=== PATIENT | female | born 1945 ===

== ENCOUNTER 2017-09-12 15:42 | Emergency (ER) | payer MEDICARE, MEDICAID ==
[2017-09-12 15:49] VITALS: RESP 16
[2017-09-12 16:39] LABS: BASO # 0.1 K/uL (0.0-0.2); BASO % 0.8 % (0.0-2.0); EOS # 0.1 K/uL (0.0-0.7); EOS % 1.1 % (0.0-4.0); HEMOGLOBIN 12.6 g/dL (12.0-16.0); LYMPH # 2.5 K/uL (1.0-4.3); LYMPH % 36.3 % (20.0-40.0); MEAN CORPUSCULAR HEMOGLOBIN 24.2 pg (27.0-31.0); MEAN CORPUSCULAR HGB CONC 31.5 g/dL (33.0-37.0); MEAN PLATELET VOLUME 8.6 fl (7.2-11.7); MONO # 0.6 K/uL (0.0-0.8); MONO % 8.9 % (0.0-10.0); NEUT # 3.6 K/uL (1.8-7.0); NEUT % 52.9 % (50.0-75.0); NRBC % 0.1 % (0.0-0.0); RBC 5.2 Mil/uL (3.80-5.20); RED CELL DISTRIBUTION WIDTH 15.6 % (11.5-14.5); WHITE BLOOD COUNT 6.8 K/uL (4.8-10.8)
[2017-09-12 17:13] LABS: VENOUS BLOOD GAS BASE EXCESS 0.3 mmol/L (0.0-2.0); VENOUS BLOOD GAS PCO2 53 mmHg (40-60); VENOUS BLOOD GAS PO2 26 mm/Hg (30-55); VENOUS BLOOD PH 7.32 (7.32-7.43)
--- NOTE | 2017-09-12 17:13 | CT ---
PROCEDURE: CT HEAD WITHOUT CONTRAST. HISTORY: fall head injury COMPARISON: Noncontrast head CT performed 06/27/16 TECHNIQUE: Axial computed tomography images were obtained through the head/brain without intravenous contrast. Radiation dose: Total exam DLP = 1539.21 mGy-cm. This CT exam was performed using one or more of the following dose reduction techniques: Automated exposure control, adjustment of the mA and/or kV according to patient size, and/or use of iterative reconstruction technique. FINDINGS: HEMORRHAGE: No intracranial hemorrhage. BRAIN: Diffuse atrophy with prominence of the ventricles and sulci noted. No mass effect or edema. Bilateral basal ganglia calcifications. Dense intracranial atherosclerosis. Scattered periventricular and subcortical white matter hypodensities, which are nonspecific, but often seen with chronic microvascular ischemic disease. Please note that MRI with diffusion imaging is more sensitive in the detection of acute ischemic event. VENTRICLES: No hydrocephalus. CALVARIUM: Unremarkable. PARANASAL SINUSES: Unremarkable as visualized. No significant inflammatory changes. MASTOID AIR CELLS: Unremarkable as visualized. No inflammatory changes. OTHER FINDINGS: Right posterior scalp hematoma. IMPRESSION: Right posterior scalp hematoma. Generalized atrophy. Nonspecific white matter changes.
--- NOTE | 2017-09-12 17:23 | CT ---
PROCEDURE: CT Cervical Spine without contrast HISTORY: Trauma/head injury. COMPARISON: 02/24/2016 CT cervical spine. TECHNIQUE: Axial computed tomography images were obtained of the cervical spine without the use of intravenous contrast. Coronal and sagittal reformatted images were created and reviewed. Radiation dose: Total exam DLP = 329.27 mGy-cm. This CT exam was performed using one or more of the following dose reduction techniques: Automated exposure control, adjustment of the mA and/or kV according to patient size, and/or use of iterative reconstruction technique. FINDINGS: VERTEBRAE: No fracture. Normal alignment. No destructive bony lesion. DISCS/SPINAL CANAL/NEURAL FORAMINA: Proliferative, hypertrophic bar formation centrally without evidence of focal herniated disc or canal stenosis. Discs heights are grossly preserved. PARASPINAL SOFT TISSUES: Unremarkable. OTHER FINDINGS: None. IMPRESSION: No acute findings related to/accounting for the clinical presentation. No significant interval change compared to the prior examination(s).
--- NOTE | 2017-09-12 17:33 | ED PDOC ---
HPI: Trauma/Fall - HPI Time Seen by Provider: 09/12/17 16:16 Chief Complaint (Nursing): Trauma Chief Complaint (Provider): Head injury s/p mechanical fall History Per: Family History/Exam Limitations: clinical condition (dementia) Onset/Duration Of Symptoms: Hrs (1) Injury Occurred (Timing): Hours Ago: (1) Location Of Injury: Posterior: Head Associated Symptoms: denies: LOC Additional Complaint(s): 72yo female with history of hypertension, dementia and diabetes, brought to ED by daughter for evaluation after she had a mechanical fall while getting out of the car. The daughter is the primary historian as the patient is demented and at baseline, is nonverbal. Daughter states patient fell backwards and hit the back of her head; deneis any loss of consciousness. Daughter states the patient needs a lot of assistance at home and usually just stays in her bed all day. PMd: Dr. Felicita Steward Past Medical History Reviewed: Historical Data, Nursing Documentation, Vital Signs Vital Signs: Last Vital Signs Temp 97.1 F L 09/12/17 15:46 Pulse 101 H 09/12/17 15:46 Resp 16 09/12/17 15:46 BP 153/105 H 09/12/17 19:20 Pulse Ox 99 09/12/17 19:25 - Medical History PMH: Alzheimer's Disease, Arthritis, Dementia, Diabetes, HTN, Schizophrenia Denies: Hepatitis, HIV, Hypercholesterolemia, Chronic Kidney Disease, Seizures, Sexually Transmitted Disease - Surgical History Surgical History: - Family History Family History: States: Unknown Family Hx - Living Arrangements Living Arrangements: With Family - Home Medications Home Medications: Ambulatory Orders Medication Instructions Recorded Canagliflozin/Metformin HCl 1 tab PO BID 02/24/16 [Invokamet 50-1,000 mg Tablet] Divalproex [Depakote ER] 250 mg PO TID 02/24/16 Ergocalciferol (Vitamin D2) 50,000 unit PO QWK 02/24/16 [Vitamin D2] Memantine [Namenda] 10 mg PO BID 02/24/16 Mirtazapine [Remeron] 7.5 mg PO HS 02/24/16 QUEtiapine [SEROquel] 100 mg PO TID PRN 02/24/16 Sertraline [Zoloft] 50 mg PO DAILY 02/24/16 Benztropine [Cogentin] 2 mg PO HS 05/28/16 Haloperidol [Haldol] 2 mg PO TID 05/28/16 Linagliptin [Tradjenta] 5 mg PO DAILY 05/28/16 Rivastigmine 4.6 mg/24 hr [Exelon 1 patch TOP DAILY 05/28/16 4.6 mg/24 hr Patch] Insulin Lispro [Humalog Kwikpen 100 unit SQ PRN PRN 06/27/16 U-100] Ibuprofen [Motrin Tab] 400 mg PO Q6 PRN #60 tab 09/12/17 - Allergies Allergies/Adverse Reactions: Allergies Allergy/AdvReac Type Severity Reaction Status Date / Time Penicillins Allergy RASH Verified 06/27/16 17:18 Review of Systems Review Of Systems: ROS cannot be obtained secondary to pt's inabilty to answer questions. (patient with dementia, non-verbal at baseline) Neurological: Positive for: Other (head injury, no loss of consciousness) Physical Exam - Reviewed Nursing Documentation Reviewed: Yes Vital Signs Reviewed: Yes - Physical Exam Head Exam: Negative for: ATRAUMATIC (large hematoma noted to right occiut. 8cm amnd circular in size, tender and fluctuant as well. ) Eye Exam: Positive for: PERRL Neck: Positive for: Trachea Midline (patient in C-collar) Extremity: Positive for: Normal ROM (all extremities) Neurologic/Psych: Positive for: Alert, Mood/Affect (non-verbal at baseline). Negative for: Motor/Sensory Deficits - Laboratory Results Result Diagrams: 09/12/17 16:35 09/12/17 18:21 - ECG O2 Sat by Pulse Oximetry: 99 (RA) Pulse Ox Interpretation: Normal Medical Decision Making Medical Decision Making: Impression: Head injury s/p fall Plan: -- CT Head w/o contrast -- CT C-Spine w/o contrast -- Labs Accession No. : [id number] Patient Name / ID : CHHAYA CHINCHILLA / [id number] Exam Date : 09/12/2017 16:50:25 ( Approved ) Study Comment : Sex / Age : F / 72Y Creator : Cathryn Borrego MD Dictator : Cathryn Borrego MD Home Theater Specialist : Production Supply Equipment Tender : Cathryn Borrego MD Approver2 : Report Date : 09/12/2017 17:12:02 My Comment : PROCEDURE: CT HEAD WITHOUT CONTRAST. HISTORY: fall head injury COMPARISON: Noncontrast head CT performed 06/27/16 TECHNIQUE: Axial computed tomography images were obtained through the head/brain without intravenous contrast. Radiation dose: Total exam DLP = 1539.21 mGy-cm. This CT exam was performed using one or more of the following dose reduction techniques: Automated exposure control, adjustment of the mA and/or kV according to patient size, and/or use of iterative reconstruction technique. FINDINGS: HEMORRHAGE: No intracranial hemorrhage. BRAIN: Diffuse atrophy with prominence of the ventricles and sulci noted. No mass effect or edema. Bilateral basal ganglia calcifications. Dense intracranial atherosclerosis. Scattered periventricular and subcortical white matter hypodensities, which are nonspecific, but often seen with chronic microvascular ischemic disease. Please note that MRI with diffusion imaging is more sensitive in the detection of acute ischemic event. VENTRICLES: No hydrocephalus. CALVARIUM: Unremarkable. PARANASAL SINUSES: Unremarkable as visualized. No significant inflammatory changes. MASTOID AIR CELLS: Unremarkable as visualized. No inflammatory changes. OTHER FINDINGS: Right posterior scalp hematoma. IMPRESSION: Right posterior scalp hematoma. Generalized atrophy. Nonspecific white matter changes. Accession No. : [id number] Patient Name / ID : CHHAYA CHINCHILLA / [id number] Exam Date : 09/12/2017 16:53:06 ( Approved ) Study Comment : Sex / Age : F / 72Y Creator : Miguel Angel Moreira MD Dictator : Miguel Angel Moreira MD Home Theater Specialist : Production Supply Equipment Tender : Miguel Angel Moreira MD Approver2 : Report Date : 09/12/2017 17:21:46 My Comment : PROCEDURE: CT Cervical Spine without contrast HISTORY: Trauma/head injury. COMPARISON: 02/24/2016 CT cervical spine. TECHNIQUE: Axial computed tomography images were obtained of the cervical spine without the use of intravenous contrast. Coronal and sagittal reformatted images were created and reviewed. Radiation dose: Total exam DLP = 329.27 mGy-cm. This CT exam was performed using one or more of the following dose reduction techniques: Automated exposure control, adjustment of the mA and/or kV according to patient size, and/or use of iterative reconstruction technique. FINDINGS: VERTEBRAE: No fracture. Normal alignment. No destructive bony lesion. DISCS/SPINAL CANAL/NEURAL FORAMINA: Proliferative, hypertrophic bar formation centrally without evidence of focal herniated disc or canal stenosis. Discs heights are grossly preserved. PARASPINAL SOFT TISSUES: Unremarkable. OTHER FINDINGS: None. IMPRESSION: No acute findings related to/accounting for the clinical presentation. No significant interval change compared to the prior examination(s). Scribe Attestation: Documented by Patricia Stevens acting as a scribe for Patrizia Erazo MD. Provider Attestation: All medical record entries made by the Scribe were at my direction and personally dictated by me. I have reviewed the chart and agree that the record accurately reflects my personal performance of the history, physical exam, medical decision making, and the department course for this patient. I have also personally directed, reviewed, and agree with the discharge instructions and disposition. Disposition - Clinical Impression Clinical Impression: Head injury, Scalp hematoma, Fall - Disposition Referrals: Felicita Steward [Staff Provider] - 09/13/17 ([facility]) Condition: STABLE Prescriptions: Ibuprofen [Motrin Tab] 400 mg PO Q6 PRN #60 tab PRN Reason: PAIN Instructions: Fall Prevention for Older Adults (ED), Contusion in Adults (ED), Head Injury (ED) Forms: [email or web address] (Czech) Print Language: AUSTRALIAN
[2017-09-12] MEDS ORDERED: Sodium Chloride 0.9% 500 ML IV STA (17:49)
[2017-09-12 18:49] LABS: CALCIUM 9.1 mg/dL (8.4-10.2); GFR AFRICAN-AMERICAN > 60; GFR NON-AFRICAN AMERICAN > 60
[2017-09-12 18:54] LABS: ALBUMIN 4.1 g/dL (3.5-5.0); ALT/SGPT < 6 U/L (9-52); AST/SGOT 65 U/L (14-36); BLOOD UREA NITROGEN 19 mg/dl (7-17)
[2017-09-12 19:20] VITALS: BP 153/105
[2017-09-12 19:39] VITALS: PULSE 87; TEMP 97.4; O2SAT 97
== END 2017-09-12 20:13 | disposition home or self-care (01) ==
LOC: H.ER 15:42
DX: S00.03XA Contusion of scalp, initial encounter (principal); S09.90XA Unspecified injury of head, initial encounter; W19.XXXA Unspecified fall, initial encounter; Y92.89 Other specified places as the place of occurrence of the external cause; F02.80 Dementia in other diseases classified elsewhere, unspecified severity, without behavioral disturbance, psychotic disturbance, mood disturbance, and anxiety; E11.9 Type 2 diabetes mellitus without complications; G30.9 Alzheimer's disease, unspecified; I10 Essential (primary) hypertension; Z79.4 Long term (current) use of insulin; Z88.0 Allergy status to penicillin; F20.9 Schizophrenia, unspecified
CPT/HCPCS: 70450; 72125; 80053; 82803; 83605; 85025; 96360; 96361; 99284; J7040

== ENCOUNTER 2018-07-06 12:04 | Inpatient (IN) | payer MEDICARE, MEDICAID ==
[2018-07-06 12:12] VITALS: BMI 25.0
[2018-07-06] MEDS ORDERED: Sodium Chloride 0.9% 1,000 ML IV STA ×2 (12:35→12:51)
--- NOTE | 2018-07-06 12:39 | ED PDOC ---
HPI: Altered Mental Status Time Seen by Provider: 07/06/18 12:29 Chief Complaint (Nursing): Weakness/Neurological Deficit History Per: Family Onset/Duration Of Symptoms: Days (3) Current Symptoms Are (Timing): Still Present Description Of Symptoms: Difficult To Arouse Usual Baseline: Non-verbal, Ambulatory Decreased Ability To: Stand, Walk Severity: Moderate Additional History Per: Family Associated Symptoms: Fever, Not Eating, Not Drinking. denies: Vomiting, Diarrhea, Cough Additional Complaint(s): Brought by EMS, family states fever, decreased PO intake and difficulty urinating x 3 days. Pt has h/o Dementia but is now unable to ambulate with decreased responsiveness. Denies vomiting or diarrhea. No cough. Past Medical History Vital Signs: Last Vital Signs Temp 101.2 F H 07/06/18 12:27 Pulse 118 H 07/06/18 12:27 Resp 20 07/06/18 12:27 BP 138/89 07/06/18 12:11 Pulse Ox 96 07/06/18 12:27 - Medical History PMH: Alzheimer's Disease, Arthritis, Dementia, Diabetes, HTN, Hypercholesterolemia, Schizophrenia Denies: Hepatitis, HIV, Chronic Kidney Disease, Seizures, Sexually Transmitted Disease - Surgical History Surgical History: - Family History Family History: States: Unknown Family Hx - Home Medications Home Medications: Ambulatory Orders Medication Instructions Recorded Canagliflozin/Metformin HCl 1 tab PO BID 02/24/16 [Invokamet 50-1,000 mg Tablet] Divalproex [Depakote ER] 250 mg PO TID 02/24/16 Ergocalciferol (Vitamin D2) 50,000 unit PO QWK 02/24/16 [Vitamin D2] Memantine [Namenda] 10 mg PO BID 02/24/16 Mirtazapine [Remeron] 7.5 mg PO HS 02/24/16 QUEtiapine [SEROquel] 100 mg PO TID PRN 02/24/16 Sertraline [Zoloft] 50 mg PO DAILY 02/24/16 Benztropine [Cogentin] 2 mg PO HS 05/28/16 Haloperidol [Haldol] 2 mg PO TID 05/28/16 Linagliptin [Tradjenta] 5 mg PO DAILY 05/28/16 Rivastigmine 4.6 mg/24 hr [Exelon 1 patch TOP DAILY 05/28/16 4.6 mg/24 hr Patch] Insulin Lispro [Humalog Kwikpen 100 unit SQ PRN PRN 06/27/16 U-100] Ibuprofen [Motrin Tab] 400 mg PO Q6 PRN #60 tab 09/12/17 - Allergies Allergies/Adverse Reactions: Allergies Allergy/AdvReac Type Severity Reaction Status Date / Time Penicillins Allergy RASH Verified 07/06/18 12:11 Review of Systems ROS Statement: Except As Marked, All Systems Reviewed And Found Negative Constitutional: Positive for: Fever Genitourinary Female: Positive for: Dysuria Physical Exam - Reviewed Nursing Documentation Reviewed: Yes Vital Signs Reviewed: Yes - Physical Exam Appears: Positive for: Non-toxic, No Acute Distress Head Exam: Positive for: ATRAUMATIC, NORMAL INSPECTION, NORMOCEPHALIC Skin: Positive for: Normal Color, Warm, DRY Eye Exam: Positive for: EOMI, Normal appearance, PERRL ENT: Positive for: Other (Mucous membranes dry) Neck: Positive for: Normal, Painless ROM Cardiovascular/Chest: Positive for: Regular Rate, Rhythm Respiratory: Positive for: CNT, Normal Breath Sounds Gastrointestinal/Abdominal: Positive for: Normal Exam, Soft Back: Positive for: Other (2 cm sacral decubitus with breakdown of skin, no drainage or ertythema) Extremity: Positive for: Normal ROM Neurologic/Psych: Negative for: Alert (lethargic), Motor/Sensory Deficits - Laboratory Results Result Diagrams: 07/06/18 12:42 07/06/18 12:42 - ECG O2 Sat by Pulse Oximetry: 96 Medical Decision Making Medical Decision Making: No obvious source for sepsis. ? infiltrate LLL. Will tx with IV vanco and cipro as pt is allergic to pcn and rehydrate and repeat lactate Disposition - Clinical Impression Clinical Impression: SIRS (systemic inflammatory response syndrome), Dehydration, Hypernatremia - Patient ED Disposition Is Patient to be Admitted: Yes - Disposition Disposition Time: 13:46 Condition: FAIR Forms: Candice Doe (Mexican) - Pt Status Changed To: Hospital Disposition Of: Inpatient - Admit Certification Admit to Inpatient:: After my assessment, the patient will require hos pitalization for at least two midnights. This is because of the severity of symptoms shown, intensity of services needed, and/or the medical risk in this patient being treated as an outpatient. - POA Present On Arrival: None
[2018-07-06 12:48] LABS: BASO # 0.1 K/uL (0.0-0.2); HEMOGLOBIN 15.1 g/dL (12.0-16.0); LYMPH # 1.7 K/uL (1.0-4.3); LYMPH % 15.9 % (20.0-40.0); MEAN CORPUSCULAR HEMOGLOBIN 24.4 pg (27.0-31.0); MEAN CORPUSCULAR HGB CONC 31.7 g/dL (33.0-37.0); MEAN PLATELET VOLUME 9.7 fl (7.2-11.7); MONO # 0.5 K/uL (0.0-0.8); MONO % 4.7 % (0.0-10.0); NEUT # 8.4 K/uL (1.8-7.0); NEUT % 78.4 % (50.0-75.0); NRBC % 0.3 % (0.0-0.0); RBC 6.2 Mil/uL (3.80-5.20); RED CELL DISTRIBUTION WIDTH 14.5 % (11.5-14.5); WHITE BLOOD COUNT 10.8 K/uL (4.8-10.8)
[2018-07-06 12:48] LABS: VENOUS BLOOD GAS BASE EXCESS -2.6 mmol/L (0.0-2.0); VENOUS BLOOD GAS PCO2 31 mmHg (40-60); VENOUS BLOOD GAS PO2 57 mm/Hg (30-55); VENOUS BLOOD PH 7.43 (7.32-7.43)
[2018-07-06] MEDS ORDERED: Ciprofloxacin 400mg/200ml D5W 400 MG/200 ML BAG IVPB STA (12:51)
[2018-07-06 13:08] LABS: ALBUMIN 4.1 g/dL (3.5-5.0); ALT/SGPT 25 U/L (9-52); AST/SGOT 27 U/L (14-36); BLOOD UREA NITROGEN 38 mg/dl (7-17); CALCIUM 9.8 mg/dL (8.4-10.2); GFR NON-AFRICAN AMERICAN > 60
[2018-07-06] MEDS ORDERED: Ciprofloxacin 400mg/200ml D5W 400 MG/200 ML BAG IVPB ONE (13:09)
[2018-07-06 13:10] LABS: SQUAMOUS EPITHIAL < 1 /hpf (0-5); URINE BACTERIA RARE (<OCC); URINE BILIRUBIN NEGATIVE (NEGATIVE); URINE BLOOD SMALL (NEGATIVE); URINE CLARITY SLIGHTY-CLOUDY (Clear); URINE COLOR YELLOW (YELLOW); URINE GLUCOSE (UA) >=500 mg/dL (NEGATIVE); URINE LEUKOCYTE ESTERASE NEG Leu/uL (Negative); URINE PROTEIN 30 mg/dL (NEGATIVE); URINE UROBILINOGEN 0.2-1.0 mg/dL (0.2-1.0)
--- NOTE | 2018-07-06 13:32 | CT ---
Date of service: 07/06/2018 PROCEDURE: CT HEAD WITHOUT CONTRAST. HISTORY: r/o bleed COMPARISON: Unenhanced head CT 09/12/2017. TECHNIQUE: Axial computed tomography images were obtained through the head/brain without intravenous contrast. Radiation dose: Total exam DLP = 831.47 mGy-cm. This CT exam was performed using one or more of the following dose reduction techniques: Automated exposure control, adjustment of the mA and/or kV according to patient size, and/or use of iterative reconstruction technique. FINDINGS: HEMORRHAGE: No intracranial hemorrhage. BRAIN: Stable age-related degenerative changes are identified which are not significantly changed in the interval. There is no mass effect or suspicious extra-axial collection appreciated. Midline brain anatomy is unremarkable with posterior fossa contents nonfocal once again. VENTRICLES: Unremarkable. No hydrocephalus. CALVARIUM: Unremarkable. PARANASAL SINUSES: Unremarkable as visualized. No significant inflammatory changes. MASTOID AIR CELLS: Unremarkable as visualized. No inflammatory changes. OTHER FINDINGS: None. IMPRESSION: Stable age-related degenerative findings are identified without definite acute interval CT findings as per above. Follow-up CT or MRI are available if clinically warranted.
--- NOTE | 2018-07-06 14:06 | RAD ---
Date of service: 07/06/2018 HISTORY: cough COMPARISON: 06/27/2016. FINDINGS: LUNGS: Left lower lobe infiltrate suspicious for pneumonia. PLEURA: No significant pleural effusion identified, no pneumothorax apparent. CARDIOVASCULAR: No atherosclerotic calcification present Normal. OSSEOUS STRUCTURES: No significant abnormalities. VISUALIZED UPPER ABDOMEN: Normal. OTHER FINDINGS: None. IMPRESSION: Asymmetric increased parenchymal markings retrocardiac region-left lower lobe suspicious for pneumonia. Two-view radiograph may confirm these findings.
[2018-07-06 14:23] LABS: ALB/GLOB RATIO 0.9 (1.0-2.1); ALBUMIN 3.3 g/dL (3.5-5.0); ALT/SGPT 21 U/L (9-52); AST/SGOT 18 U/L (14-36); BLOOD UREA NITROGEN 35 mg/dl (7-17); CALCIUM 8.9 mg/dL (8.4-10.2); GFR NON-AFRICAN AMERICAN > 60
[2018-07-06] MEDS: Dextrose 5%/0.45% NS 1,000 ML IV SCH ×2 (14:46→21:30)
[2018-07-06] MEDS ORDERED: Vancomycin 1 g Inj ONE (14:54)
[2018-07-06] MEDS ORDERED: Pneumococcal 23-Valent Vaccine IM ONE (17:35)
[2018-07-06 17:37] LABS: VENOUS BLOOD GAS BASE EXCESS -16.6 mmol/L (0.0-2.0); VENOUS BLOOD GAS PCO2 59 mmHg (40-60); VENOUS BLOOD GAS PO2 93 mm/Hg (30-55); VENOUS BLOOD PH 7.01 (7.32-7.43)
[2018-07-06] MEDS: Potassium Ch 20mEq in D5-1/2NS 1,000 ML IV SCH (17:56)
--- NOTE | 2018-07-06 17:58 | CARD ---
APPROVED REPORT Date of service: 07/06/2018 EKG Measurement Heart [id number] <Conclusion> Sinus tachycardia Left anterior fascicular block Left ventricular hypertrophy with repolarization abnormality Cannot rule out Septal infarct, age undetermined Abnormal ECG
[2018-07-06] MEDS: Ciprofloxacin 400mg/200ml D5W 400 MG/200 ML BAG IVPB SCH (20:13)
[2018-07-07] MEDS: Potassium Ch 20mEq in D5-1/2NS 1,000 ML IV SCH ×2 (01:00→10:46)
[2018-07-07] MEDS: Dextrose 5%/0.45% NS 1,000 ML IV SCH ×2 (04:30→17:56)
[2018-07-07 07:32] LABS: HEMOGLOBIN 11.8 g/dL (12.0-16.0); MEAN CELL VOLUME 77.9 fl (81.0-99.0); MEAN CORPUSCULAR HEMOGLOBIN 23.9 pg (27.0-31.0); MEAN CORPUSCULAR HGB CONC 30.7 g/dL (33.0-37.0); RBC 4.94 Mil/uL (3.80-5.20); RED CELL DISTRIBUTION WIDTH 14.6 % (11.5-14.5); WHITE BLOOD COUNT 7.7 K/uL (4.8-10.8)
[2018-07-07 07:38] LABS: LDL CHOLESTEROL 139 mg/dL (0-129)
[2018-07-07 07:59] LABS: ALB/GLOB RATIO 0.9 (1.0-2.1); ALBUMIN 2.7 g/dL (3.5-5.0); ALT/SGPT 27 U/L (9-52); AST/SGOT 16 U/L (14-36); BLOOD UREA NITROGEN 22 mg/dl (7-17); CALCIUM 8.7 mg/dL (8.4-10.2); GFR NON-AFRICAN AMERICAN > 60; HDL CHOLESTEROL 38 MG/DL (30-70)
[2018-07-07] MEDS: Ciprofloxacin 400mg/200ml D5W 400 MG/200 ML BAG IVPB SCH ×2 (08:57→21:49)
[2018-07-07] MEDS ORDERED: Dextrose 50% SYRINGE Inj (50 ml) IV PRN (09:10)
[2018-07-07] MEDS ORDERED: Glucagon Recombinant 1 mg Inj IM PRN (09:10)
[2018-07-07] MEDS: Vancomycin 1 GM in Dextrose 5% In Water 250 ML IVPB SCH (09:40)
[2018-07-07] MEDS: Insulin Regular 100 units/ml SC SCH ×3 (12:41→21:50)
--- NOTE | 2018-07-07 14:39 | CP.PCM.HP ---
History of Present Illness - History of Present Illness History of Present Illness: CC: AMS. 72 y/o F, Hx: Alzheimer/Dementia, HTN, DMII. 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 Worsening symptoms: Difficulty urinating for 3 days, Pt Non verbal Aggravated factor: Stand/movements. As per family: No vomiting, diarrhea, abdominal pain, CP, syncope, SOB, cough, sick contact. EKG: Sinus Tachycardia, L anterior fascicular block, L ventricular hypertrophy, cannot rule out septal infarct, age undetermined. CXR: LLL suspicious for PNA. Head CT: Age related degenerative changes. Present on Admission - Present on Admission Any Indicators Present on Admission: Yes Decubitus Ulcer Present: Yes Decubitus Ulcer Location: Sacrum b/l Review of Systems - Review of Systems Systems not reviewed;Unavailable: Acuity of Condition, Dementia Past Patient History - Infectious Disease Hx of Infectious Diseases: None - Tetanus Immunizations Tetanus Immunization: Unknown - Past Medical History & Family History Past Medical History?: Yes - Past Social History Smoking Status: Never Smoked Alcohol: None Drugs: Denies Home Situation {Lives}: With Family - CARDIAC Hx Cardiac Disorders: Yes Hx Hypercholesterolemia: Yes Hx Hypertension: Yes - PULMONARY Hx Respiratory Disorders: No Hx Tuberculosis: No - NEUROLOGICAL Hx Neurological Disorder: Yes Hx Alzheimer's Disease: Yes Hx Dementia: Yes Hx Seizures: No - HEENT Hx HEENT Problems: Yes Hx Cataracts: Yes Hx Glaucoma: Yes - RENAL Hx Chronic Kidney Disease: No - ENDOCRINE/METABOLIC Hx Endocrine Disorders: Yes (dm) Hx Diabetes Mellitus Type 2: Yes - HEMATOLOGICAL/ONCOLOGICAL Hx Blood Disorders: No Hx Human Immunodeficiency Virus (HIV): No - INTEGUMENTARY Hx Dermatological Problems: No - MUSCULOSKELETAL/RHEUMATOLOGICAL Hx Musculoskeletal Disorders: Yes Hx Arthritis: Yes Hx Falls: Yes - GASTROINTESTINAL Hx Gastrointestinal Disorders: Yes Hx Hemorrhoids: Yes - GENITOURINARY/GYNECOLOGICAL Hx Genitourinary Disorders: No Hx Sexually Transmitted Disorders: No - PSYCHIATRIC Hx Psychophysiologic Disorder: Yes Hx Schizophrenia: Yes Hx Substance Use: No - SURGICAL HISTORY Hx Surgeries: Yes Hx Section: Yes - ANESTHESIA Hx Anesthesia: Yes Meds Allergies/Adverse Reactions: Allergies Allergy/AdvReac Type Severity Reaction Status Date / Time Penicillins Allergy RASH Verified 07/06/18 12:11 Physical Exam - Constitutional Appears: No Acute Distress - Head Exam Head Exam: NORMAL INSPECTION - ENT Exam ENT Exam: Normal Exam - Neck Exam Neck exam: Positive for: Normal Inspection - Respiratory Exam Respiratory Exam: NORMAL BREATHING PATTERN - Cardiovascular Exam Cardiovascular Exam: REGULAR RHYTHM - GI/Abdominal Exam GI & Abdominal Exam: Normal Bowel Sounds, Soft - Extremities Exam Extremities exam: Positive for: normal inspection - Back Exam Additional comments: Sacral decubiti - Neurological Exam Additional comments: Confused, disoriented, non verbal, unable to follows commands. - Skin Skin Exam: Warm Results - Vital Signs Recent Vital Signs: Last Vital Signs Temp 97.8 F 07/07/18 12:37 Pulse 73 07/07/18 12:37 Resp 20 07/07/18 12:37 BP 103/68 07/07/18 12:37 Pulse Ox 100 07/07/18 12:37 reviewed Nae - Labs Result Diagrams: 07/08/18 05:30 07/08/18 05:30 Labs: Laboratory Results - last 24 hr 07/06/18 07/06/18 07/06/18 16:24 17:30 20:53 WBC RBC Hgb Hct MCV MCH MCHC RDW Plt Count pO2 93 H VBG pH 7.01 L* VBG pCO2 59 VBG HCO3 11.8 VBG Total CO2 16.7 L VBG O2 Sat (Calc) 94.6 H VBG Base Excess -16.6 L Sodium 134.0 Chloride 121.0 H Glucose 287 H Lactate 1.7 FiO2 21.0 Crit Value Called To Mattie costa rn Crit Value Called By 6022 Crit Value Read Back Y Blood Gas Notified Time 1737 Potassium Carbon Dioxide Anion Gap BUN Creatinine Est GFR ( Amer) Est GFR (Non-Af Amer) POC Glucose (mg/dL) 227 H 251 H Random Glucose Calcium Total Bilirubin AST ALT Alkaline Phosphatase Total Protein Albumin Globulin Albumin/Globulin Ratio Triglycerides Cholesterol LDL Cholesterol Direct HDL Cholesterol TSH 3rd Generation 07/07/18 07/07/18 07/07/18 04:41 05:30 05:30 WBC 7.7 RBC 4.94 Hgb 11.8 L D Hct 38.5 MCV 77.9 L MCH 23.9 L MCHC 30.7 L RDW 14.6 H Plt Count 104 L D pO2 VBG pH VBG pCO2 VBG HCO3 VBG Total CO2 VBG O2 Sat (Calc) VBG Base Excess Sodium 155 H Chloride 123 H Glucose Lactate FiO2 Crit Value Called To Crit Value Called By Crit Value Read Back Blood Gas Notified Time Potassium 3.7 Carbon Dioxide 24 Anion Gap 12 BUN 22 H Creatinine 0.6 L Est GFR ( Amer) > 60 Est GFR (Non-Af Amer) > 60 POC Glucose (mg/dL) 211 H Random Glucose 268 H Calcium 8.7 Total Bilirubin 0.4 AST 16 ALT 27 Alkaline Phosphatase 64 Total Protein 6.0 L Albumin 2.7 L Globulin 3.2 Albumin/Globulin Ratio 0.9 L Triglycerides 138 D Cholesterol 195 LDL Cholesterol Direct 139 H HDL Cholesterol 38 TSH 3rd Generation 0.90 07/07/18 11:33 WBC RBC Hgb Hct MCV MCH MCHC RDW Plt Count pO2 VBG pH VBG pCO2 VBG HCO3 VBG Total CO2 VBG O2 Sat (Calc) VBG Base Excess Sodium Chloride Glucose Lactate FiO2 Crit Value Called To Crit Value Called By Crit Value Read Back Blood Gas Notified Time Potassium Carbon Dioxide Anion Gap BUN Creatinine Est GFR ( Amer) Est GFR (Non-Af Amer) POC Glucose (mg/dL) 262 H Random Glucose Calcium Total Bilirubin AST ALT Alkaline Phosphatase Total Protein Albumin Globulin Albumin/Globulin Ratio Triglycerides Cholesterol LDL Cholesterol Direct HDL Cholesterol TSH 3rd Generation Reviewed J.P. - EKG Data EKG comments: reviewed J.P. - Imaging and Cardiology Chest x-ray Status: Report reviewed by me (J.P.) CT scan - head Status: Report reviewed by me (J.P.) Assessment & Plan (1) Altered mental status Status: Acute Priority: High (2) Dementia Status: Acute Priority: High (3) Dehydration Status: Acute Priority: High (4) Fever Status: Acute Priority: High (5) Hypernatremia Status: Acute Priority: High (6) Uncontrolled diabetes mellitus Status: Acute Priority: High - Assessment and Plan (Free Text) Plan: Continue Cipro, Vanco, Dextrose, Insulin and rest of Tx. OT,PT, Speech and wall ow eval. - Date & Time Date: 07/07/18 Time: 14:00
[2018-07-08 06:34] LABS: HEMOGLOBIN 11.1 g/dL (12.0-16.0); MEAN CELL VOLUME 77.1 fl (81.0-99.0); MEAN CORPUSCULAR HEMOGLOBIN 23.6 pg (27.0-31.0); MEAN CORPUSCULAR HGB CONC 30.6 g/dL (33.0-37.0); RBC 4.69 Mil/uL (3.80-5.20); RED CELL DISTRIBUTION WIDTH 14.1 % (11.5-14.5); WHITE BLOOD COUNT 5.9 K/uL (4.8-10.8)
[2018-07-08 07:01] LABS: BLOOD UREA NITROGEN 14 mg/dl (7-17); CALCIUM 8.4 mg/dL (8.4-10.2); GFR NON-AFRICAN AMERICAN > 60
[2018-07-08] MEDS: Insulin Regular 100 units/ml SC SCH ×4 (07:02→21:46)
[2018-07-08] MEDS: Potassium Chl 40 mEq in D5-1/2 1,000 ML IV SCH (08:18)
[2018-07-08] MEDS: Vancomycin 1 GM in Dextrose 5% In Water 250 ML IVPB SCH (08:19)
[2018-07-08] MEDS: Ciprofloxacin 400mg/200ml D5W 400 MG/200 ML BAG IVPB SCH ×2 (08:20→21:03)
[2018-07-08] MEDS: Potassium CL 10 MEQ/50 ML 50 ML IVPB SCH ×3 (08:20→12:01)
--- NOTE | 2018-07-08 15:14 | CP.PCM.PN ---
Subjective - Date & Time of Evaluation Date of Evaluation: 07/08/18 Time of Evaluation: 14:30 - Subjective Subjective: F/U AMS Awake, no A/D, as per family in her base line. Objective - Vital Signs/Intake and Output Vital Signs (last 24 hours): Temp Pulse Resp BP Pulse Ox 98.3 F 77 20 121/74 98 07/08/18 12:16 07/08/18 12:16 07/08/18 12:16 07/08/18 12:16 07/08/18 12:16 Intake and Output: 07/08/18 07/08/18 06:59 18:59 Intake Total 3100 Output Total 1775 Balance 1325 - Medications Medications: Current Medications Dextrose (Dextrose 50% Inj) 0 ml IV STAT PRN; Protocol PRN Reason: Hypoglycemia Protocol Dextrose (Glutose 15) 0 gm PO ONCE PRN; Protocol PRN Reason: Hypoglycemia Protocol Glucagon (Glucagen Diagnostic Kit) 0 mg IM STAT PRN; Protocol PRN Reason: Hypoglycemia Protocol Ciprofloxacin (Cipro 400mg/200ml Dsw) 400 mg in 200 mls @ 200 mls/hr IVPB Q12 ZHANG; Protocol Last Admin: 07/08/18 08:20 Dose: 200 mls/hr Vancomycin HCl 1 gm/ Dextrose 250 mls @ 166.667 mls/hr IVPB DAILY ZHANG; Protocol Last Admin: 07/08/18 08:19 Dose: 166.667 mls/hr Potassium Chloride/Dextrose/Sod Cl (Potassium Chl 40 Meq In D5-1/2ns) 1,000 mls @ 100 mls/hr IV .Q10H ZHANG Stop: 07/09/18 07:44 Last Admin: 07/08/18 08:18 Dose: 100 mls/hr Insulin Human Regular (Humulin R) 0 units SC ACHS ZHANG; Protocol Last Admin: 07/08/18 12:02 Dose: 3 units - Labs Labs: 07/08/18 05:30 07/08/18 05:30 - Constitutional Appears: No Acute Distress - Head Exam Head Exam: NORMAL INSPECTION - Eye Exam Eye Exam: PERRL - ENT Exam ENT Exam: Normal Exam - Neck Exam Neck Exam: Normal Inspection - Respiratory Exam Respiratory Exam: NORMAL BREATHING PATTERN - Cardiovascular Exam Cardiovascular Exam: REGULAR RHYTHM - GI/Abdominal Exam GI & Abdominal Exam: Soft, Normal Bowel Sounds - Extremities Exam Extremities Exam: Normal Inspection - Back Exam Additional comments: Sacral decubiti - Neurological Exam Neurological Exam: Awake Additional comments: Confused, disoriented, non verbal, do not follows commands - Skin Skin Exam: Warm Assessment and Plan (1) Altered mental status Status: Acute (2) Dementia Status: Acute (3) Dehydration Status: Acute (4) Fever Status: Acute (5) Hypernatremia Status: Acute (6) Uncontrolled diabetes mellitus Status: Acute - Assessment and Plan (Free Text) Plan: Continue Cipro, Vanco, Dextrose and rest of Tx.
[2018-07-09] MEDS: Potassium Chl 40 mEq in D5-1/2 1,000 ML IV SCH (02:47)
[2018-07-09 05:48] LABS: HEMOGLOBIN 12.1 g/dL (12.0-16.0); MEAN CELL VOLUME 76.3 fl (81.0-99.0); MEAN CORPUSCULAR HGB CONC 31.5 g/dL (33.0-37.0); RBC 5.04 Mil/uL (3.80-5.20); RED CELL DISTRIBUTION WIDTH 13.6 % (11.5-14.5); WHITE BLOOD COUNT 5.2 K/uL (4.8-10.8)
[2018-07-09 06:18] LABS: BLOOD UREA NITROGEN 9 mg/dl (7-17); CALCIUM 8.4 mg/dL (8.4-10.2); GFR NON-AFRICAN AMERICAN > 60
[2018-07-09] MEDS: Ciprofloxacin 400mg/200ml D5W 400 MG/200 ML BAG IVPB SCH (08:30)
[2018-07-09] MEDS: Vancomycin 1 GM in Dextrose 5% In Water 250 ML IVPB SCH (08:30)
[2018-07-09] MEDS: Insulin Regular 100 units/ml SC SCH ×3 (08:31→17:10)
--- NOTE | 2018-07-09 13:58 | CP.PCM.PCO ---
Assessment/Plan - Assessment/Plan Assessment (Free Text): I have evaluated Adilene Renteria on 07/09/18 in room 402-2. Due to the patient's condition of advanced dementia alzheimers and pneumonia, patient requires a hospital bed for aspiration precautions. Patient requires the head of the bed to be elevated more than 30 degrees for most of the time. Furthermore patient requires positioning of the body in the ways not feasible with an ordinary bed. - Consults Consult Orders: Consultations 07/06/18 17:32 Nursing Referral for Wound Care Routine Comment: Physician Instructions: Reason For Exam: Eval - Problems Patient Problems: Problem List (Active/Current) Problem Status Onset Code Dehydration Acute E86.0 Fever Acute R50.9 Hypernatremia Acute E87.0 SIRS (systemic inflammatory response syndrome) Acute R65.10
--- NOTE | 2018-07-09 15:06 | RAD ---
Date of service: 07/09/2018 PROCEDURE: CHEST RADIOGRAPH, 1 VIEW HISTORY: f up pneumonia COMPARISON: 07/06/2018. FINDINGS: LUNGS: The lungs are well inflated and clear. PLEURA: No pneumothorax or pleural effusion. CARDIOVASCULAR: The heart is normal in size. No aortic atherosclerotic calcifications present. OSSEOUS STRUCTURES: Within normal limits for the patient's age. VISUALIZED UPPER ABDOMEN: Normal. OTHER FINDINGS: None. IMPRESSION: No active pulmonary disease.
--- NOTE | 2018-07-09 16:35 | CP.PCM.DIS ---
Provider - Provider Date of Admission: 07/06/18 13:47 Attending physician: Marino Sosa MD Primary care physician: Felicita Steward MD Consults: 07/06/18 17:32 Nursing Referral for Wound Care Routine Comment: Physician Instructions: Reason For Exam: Eval Time Spent in preparation of Discharge (in minutes): 35 Diagnosis - Discharge Diagnosis (1) Altered mental status Status: Acute Priority: High (2) Dementia Status: Acute Priority: High (3) Dehydration Status: Acute Priority: High (4) Fever Status: Acute Priority: High (5) Hypernatremia Status: Acute Priority: High (6) Uncontrolled diabetes mellitus Status: Acute Priority: High Hospital Course - Lab Results Lab Results: Micro Results 07/06/18 13:08 Blood-Venous Blood Culture - Preliminary NO GROWTH AFTER 3 DAYS 07/06/18 12:35 Blood-Venous Blood Culture - Preliminary NO GROWTH AFTER 3 DAYS 07/06/18 13:00 Urine,Catheterized Urine Culture - Final No Growth (<1,000 CFU/ML) Most Recent Lab Values WBC 5.2 K/uL (4.8-10.8) 07/09/18 04:25 RBC 5.04 Mil/uL (3.80-5.20) 07/09/18 04:25 Hgb 12.1 g/dL (12.0-16.0) 07/09/18 04:25 Hct 38.5 % (34.0-47.0) 07/09/18 04:25 MCV 76.3 fl (81.0-99.0) L 07/09/18 04:25 MCH 24.0 pg (27.0-31.0) L 07/09/18 04:25 MCHC 31.5 g/dL (33.0-37.0) L 07/09/18 04:25 RDW 13.6 % (11.5-14.5) 07/09/18 04:25 Plt Count 109 K/uL (130-400) L 07/09/18 04:25 MPV 9.7 fl (7.2-11.7) 07/06/18 12:42 Neut % (Auto) 78.4 % (50.0-75.0) H 07/06/18 12:42 Lymph % (Auto) 15.9 % (20.0-40.0) L 07/06/18 12:42 Adams % (Auto) 4.7 % (0.0-10.0) 07/06/18 12:42 Eos % (Auto) 0.0 % (0.0-4.0) 07/06/18 12:42 Baso % (Auto) 1.0 % (0.0-2.0) 07/06/18 12:42 Neut # (Auto) 8.4 K/uL (1.8-7.0) H 07/06/18 12:42 Lymph # (Auto) 1.7 K/uL (1.0-4.3) 07/06/18 12:42 Adams # (Auto) 0.5 K/uL (0.0-0.8) 07/06/18 12:42 Eos # (Auto) 0.0 K/uL (0.0-0.7) 07/06/18 12:42 Baso # (Auto) 0.1 K/uL (0.0-0.2) 07/06/18 12:42 pO2 93 mm/Hg (30-55) H 07/06/18 17:30 VBG pH 7.01 (7.32-7.43) L* 07/06/18 17:30 VBG pCO2 59 mmHg (40-60) 07/06/18 17:30 VBG HCO3 11.8 mmol/L 07/06/18 17:30 VBG Total CO2 16.7 mmol/L (22-28) L 07/06/18 17:30 VBG O2 Sat (Calc) 94.6 % (40-65) H 07/06/18 17:30 VBG Base Excess -16.6 mmol/L (0.0-2.0) L 07/06/18 17:30 VBG Potassium 4.0 mmol/L (3.6-5.2) 07/06/18 12:35 Sodium 134.0 mmol/L (132-148) 07/06/18 17:30 Chloride 121.0 mmol/L (98-107) H 07/06/18 17:30 Glucose 287 mg/dL (65-105) H 07/06/18 17:30 Lactate 1.7 mmol/L (0.7-2.1) 07/06/18 17:30 FiO2 21.0 % 07/06/18 17:30 Blood Gas Comments Vbg 07/06/18 12:35 Crit Value Called To Mattie costa rn 07/06/18 17:30 Crit Value Called By 60Tod 07/06/18 17:30 Crit Value Read Back Y 07/06/18 17:30 Blood Gas Notified Time 1737 07/06/18 17:30 Sodium 140 mmol/l (132-148) 07/09/18 04:25 Potassium 4.1 MMOL/L (3.6-5.0) 07/09/18 04:25 Chloride 106 mmol/L (98-107) 07/09/18 04:25 Carbon Dioxide 27 mmol/L (22-30) 07/09/18 04:25 Anion Gap 11 (10-20) 07/09/18 04:25 BUN 9 mg/dl (7-17) 07/09/18 04:25 Creatinine 0.6 mg/dl (0.7-1.2) L 07/09/18 04:25 Est GFR ( Amer) > 60 07/09/18 04:25 Est GFR (Non-Af Amer) > 60 07/09/18 04:25 POC Glucose (mg/dL) 327 mg/dL (65-110) H 07/09/18 15:59 Random Glucose 257 mg/dL (65-105) H 07/09/18 04:25 Hemoglobin A1c 9.6 % (4.2-6.5) H D 07/07/18 05:30 Calcium 8.4 mg/dL (8.4-10.2) 07/09/18 04:25 Total Bilirubin 0.4 mg/dl (0.2-1.3) 07/07/18 05:30 AST 16 U/L (14-36) 07/07/18 05:30 ALT 27 U/L (9-52) 07/07/18 05:30 Alkaline Phosphatase 64 U/L (38-126) 07/07/18 05:30 Total Protein 6.0 G/DL (6.3-8.2) L 07/07/18 05:30 Albumin 2.7 g/dL (3.5-5.0) L 07/07/18 05:30 Globulin 3.2 gm/dL (2.2-3.9) 07/07/18 05:30 Albumin/Globulin Ratio 0.9 (1.0-2.1) L 07/07/18 05:30 Triglycerides 138 mg/DL (0-149) D 07/07/18 05:30 Cholesterol 195 mg/dL (0-199) 07/07/18 05:30 LDL Cholesterol Direct 139 mg/dL (0-129) H 07/07/18 05:30 HDL Cholesterol 38 MG/DL (30-70) 07/07/18 05:30 TSH 3rd Generation 0.90 mIU/ML (0.46-4.68) 07/07/18 05:30 Venous Blood Potassium 4.0 mmol/L (3.6-5.2) 07/06/18 12:35 Urine Color Yellow (YELLOW) 07/06/18 13:00 Urine Clarity Slighty-cloudy (Clear) 07/06/18 13:00 Urine pH 5.0 (5.0-8.0) 07/06/18 13:00 Ur Specific [place] 1.044 (1.003-1.030) H 07/06/18 13:00 Urine Protein 30 mg/dL (NEGATIVE) 07/06/18 13:00 Urine Glucose (UA) >=500 mg/dL (NEGATIVE) 07/06/18 13:00 Urine Ketones 80 mg/dL (NEGATIVE) 07/06/18 13:00 Urine Blood Small (NEGATIVE) 07/06/18 13:00 Urine Nitrate Negative (NEGATIVE) 07/06/18 13:00 Urine Bilirubin Negative (NEGATIVE) 07/06/18 13:00 Urine Urobilinogen 0.2-1.0 mg/dL (0.2-1.0) 07/06/18 13:00 Ur Leukocyte Esterase Neg Nayla/uL (Negative) 07/06/18 13:00 Urine RBC (Auto) 3 /hpf (0-3) 07/06/18 13:00 Urine Microscopic WBC 2 /hpf (0-5) 07/06/18 13:00 Ur Squamous Epith Cells < 1 /hpf (0-5) 07/06/18 13:00 Urine Bacteria Rare (<OCC) 07/06/18 13:00 Hyaline Casts 3-5 /hpf (0-2) H 07/06/18 13:00 Influenza Typ A,B (EIA) Negative for flu a/b (NEGATIVE) 07/06/18 12:44 - Date & Time of H&P Date of H&P: 07/07/18 Time of H&P: 14:00 Discharge Exam - Head Exam Head Exam: NORMAL INSPECTION - Eye Exam Eye Exam: PERRL - ENT Exam ENT Exam: Normal Exam - Neck Exam Neck exam: Normal Inspection - Respiratory Exam Respiratory Exam: NORMAL BREATHING PATTERN - Cardiovascular Exam Cardiovascular Exam: REGULAR RHYTHM - GI/Abdominal Exam GI & Abdominal Exam: Normal Bowel Sounds, Soft - Extremities Exam Extremities exam: normal inspection - Back Exam Additional comments: sacral decubiti - Neurological Exam Additional comments: Awake, confused, disoriented, non verbal, does not follow commands. - Skin Skin Exam: Warm Discharge Plan - Follow Up Plan Condition: FAIR Disposition: DISCHARGED TO HOME CARE Instructions: Dehydration, Adult (DC), Pneumonia, Adult (DC), Altered Mental Status (DC) Additional Instructions: follow up visit with on monday07/16/18 at 9:15am Referrals: Dale Mercado MD [Medical Doctor] - Marino Sosa MD [Staff Provider] -
[2018-07-09 19:57] VITALS: BP 133/85; PULSE 101; RESP 18; TEMP 98.6; O2SAT 98
--- NOTE | 2018-07-13 14:02 | PQF ---
PROVIDER RESPONSE TEXT: DM with hyperglicemia REVIEWER QUERY TEXT: Diabetic Associated Manifestations Please specify any manifestations associated / due to diabetes Such as: ---DM with Hyperglycemia -- Diabetes with renal manifestation -- Diabetes with neurologic manifestation -- Diabetes with ophthalmic manifestation -- Diabetes with peripheral circulatory manifestation -- Other, please specify Random glucose:311->249->268->186->257 H and P includes: dxs. include: Uncontrolled diabetes mellitus Status: Acute The patient's Clinical Indicators include: -- Query created by: Brit Oneil on 07/09/2018 10:34 AM Electronically signed by: Marino Sosa MD 07/13/2018 2:00 PM
--- NOTE | 2018-07-13 14:02 | PQF ---
PROVIDER RESPONSE TEXT: AMS due to Dementia , Dehydration, Fever, uncontrolled DM, etiology of Fever unknown REVIEWER QUERY TEXT: Altered Mental Status - Underlying Cause A mental status change is documented in the Medical Record. Please specify the underlying cause Such as: -- Due to medication -- Cardiac condition -- Electrolyte/metabolic imbalance -- Infectious process -- Neurologic condition -- Psychiatric condition -- Respiratory condition -- Other, please specify H and P includes:H and P:POA: Decubitus Ulcer Location: Sacrum b/l Assessment : (1) Altered mental status Status: Acute (2) Dementia Status: Acute (3) Dehydration Status: Acute (4) Fever Status: Acute (5) Hypernatremia Status: Acute (6) Uncontrolled diabetes mellitus Status: Acute Plan: Continue Cipro, Vanco, Dextrose, Insulin and rest of Tx. OT,PT, Speech and wallow eval. The patient's Clinical Indicators include: -- Query created by: Brit Oneil on 07/09/2018 10:31 AM Electronically signed by: Marino Sosa MD 07/13/2018 2:00 PM
== END 2018-07-09 21:11 | disposition home health service (06) | DRG 641 ==
LOC: H.ER 12:04 → H.ERHOLD 13:47 → H.TEL 15:35
PROVIDERS: ADMIT Internal Medicine Pulmonary Disease; ATTEND Internal Medicine Pulmonary Disease
DX: E87.0 Hyperosmolality and hypernatremia (principal); E86.0 Dehydration; F02.80 Dementia in other diseases classified elsewhere, unspecified severity, without behavioral disturbance, psychotic disturbance, mood disturbance, and anxiety; G30.9 Alzheimer's disease, unspecified; I11.9 Hypertensive heart disease without heart failure; L89.152 Pressure ulcer of sacral region, stage 2; E11.65 Type 2 diabetes mellitus with hyperglycemia; E78.00 Pure hypercholesterolemia, unspecified; F20.9 Schizophrenia, unspecified; H40.9 Unspecified glaucoma; I44.4 Left anterior fascicular block; Z79.899 Other long term (current) drug therapy; Z88.0 Allergy status to penicillin; H26.9 Unspecified cataract; K64.9 Unspecified hemorrhoids; M19.90 Unspecified osteoarthritis, unspecified site; Z79.84 Long term (current) use of oral hypoglycemic drugs; R00.0 Tachycardia, unspecified

== ENCOUNTER 2018-12-19 15:02 | Inpatient (IN) | payer MEDICARE, MEDICAID ==
[2018-12-19 15:02] VITALS: BMI 25.0
[2018-12-19] MEDS ORDERED: Sodium Chloride 0.9% 1,000 ML IV STA ×3 (15:27→16:55)
--- NOTE | 2018-12-19 15:34 | ED PDOC ---
HPI: Abdomen Time Seen by Provider: 12/19/18 15:20 Chief Complaint (Nursing): GI Problem History Per: Family Onset/Duration Of Symptoms: Days (5) Current Symptoms Are (Timing): Still Present Quality Of Discomfort: Unable To Describe Associated Symptoms: Loss Of Appetite. denies: Fever, Vomiting, Constipation Exacerbating Factors: None Additional Complaint(s): Brought by EMS, daughter states pt has had poor PO intake x 3 days and no BM x 5 days. No vomiting. No fever.Pt has h/o dementia and is unable to provide hx. Past Medical History Vital Signs: Last Vital Signs Temp 96.2 F L 12/19/18 15:04 Pulse 96 H 12/19/18 15:04 Resp 16 12/19/18 15:04 BP 133/94 H 12/19/18 15:04 Pulse Ox 97 12/19/18 15:04 Primary Care Provider: Non [facility] Provider, - Medical History PMH: Alzheimer's Disease, Arthritis, Dementia, Diabetes, HTN, Hypercholesterolemia, Schizophrenia Denies: Hepatitis, HIV, Chronic Kidney Disease, Seizures, Sexually Transmitted Disease - Surgical History Surgical History: - Family History Family History: States: Unknown Family Hx - Home Medications Home Medications: Ambulatory Orders Medication Instructions Recorded Memantine [Namenda] 10 mg PO Q12 02/24/16 Mirtazapine [Remeron] 7.5 mg PO HS 02/24/16 QUEtiapine [SEROquel] 50 mg PO QID 02/24/16 Insulin Lispro [Humalog Kwikpen unit SQ AC 06/27/16 U-100] Canagliflozin [Invokana] 100 mg PO BID 07/06/18 Divalproex [Depakote DR] 250 mg PO Q8 07/06/18 Glipizide [Glipizide ER] 10 mg PO DAILY 07/06/18 Rosuvastatin Calcium [Crestor] 20 mg PO HS 07/06/18 Albuterol/Ipratropium [Duoneb 3 3 ml IH Q8 PRN 12/19/18 mg/0.5 mg (3 ml) UD] Hyoscyamine [Levsin] 0.125 mg PO DAILY 12/19/18 Insulin Glargine, Recombina 8 unit SC HS 12/19/18 [Lantus] MetFORMIN [glucoPHAGE] 1,000 mg PO DAILY 12/19/18 Metoprolol Tartrate [Lopressor] 25 mg PO Q12 12/19/18 Promethazine DM [Phenergan DM 5 ml PO Q6 PRN 12/19/18 Syrup] SITagliptin [Januvia] 100 mg PO DAILY 12/19/18 Travoprost [Travatan Z] 1 drop EACHEYE HS 12/19/18 metOLazone [Zaroxolyn] 2.5 mg PO MWF 12/19/18 - Allergies Allergies/Adverse Reactions: Allergies Allergy/AdvReac Type Severity Reaction Status Date / Time Penicillins Allergy RASH Verified 12/19/18 15:06 Review of Systems Review Of Systems: ROS cannot be obtained secondary to pt's inabilty to answer questions. Physical Exam - Reviewed Nursing Documentation Reviewed: Yes Vital Signs Reviewed: Yes - Physical Exam Appears: Positive for: Non-toxic, No Acute Distress Head Exam: Positive for: ATRAUMATIC, NORMAL INSPECTION, NORMOCEPHALIC Skin: Positive for: Normal Color, Warm, DRY ENT: Positive for: Other (Mucous membranes dry) Neck: Positive for: Normal, Painless ROM Cardiovascular/Chest: Positive for: Regular Rate, Rhythm Respiratory: Positive for: Decreased Breath Sounds, Rhonchi. Negative for: Wheezing, Respiratory Distress Gastrointestinal/Abdominal: Positive for: Normal Exam, Soft Back: Positive for: Normal Inspection Extremity: Positive for: Normal ROM Neurological/Psych: Positive for: Normal Tone. Negative for: Awake (Lethargic, somnolent), Motor/Sensory Deficits - Laboratory Results Result Diagrams: 12/19/18 16:12 - ECG O2 Sat by Pulse Oximetry: 97 Medical Decision Making Medical Decision Making: Meets criteria for SIRS, suspected pneumonia but pt is dehydrated, will start antibiotics and IV fluids Disposition - Clinical Impression Clinical Impression: Altered mental status, Sepsis - Patient ED Disposition Is Patient to be Admitted: Yes - Disposition Disposition Time: 15:36 Condition: FAIR Forms: [employer] (Faroese) - Pt Status Changed To: Hospital Disposition Of: Inpatient - Admit Certification Admit to Inpatient:: After my assessment, the patient will require hospitalization for at least two midnights. This is because of the severity of symptoms shown, intensity of services needed, and/or the medical risk in this patient being treated as an outpatient. - POA Present On Arrival: None
[2018-12-19 16:16] LABS: BASO % 0.7 % (0.0-2.0); EOS % 0.7 % (0.0-4.0); HEMOGLOBIN 14.3 g/dL (12.0-16.0); LYMPH # 2.1 K/uL (1.0-4.3); MEAN CORPUSCULAR HEMOGLOBIN 23.5 pg (27.0-31.0); MEAN PLATELET VOLUME 8.3 fl (7.2-11.7); MONO # 0.4 K/uL (0.0-0.8); MONO % 6.7 % (0.0-10.0); NEUT # 3.4 K/uL (1.8-7.0); NEUT % 56.9 % (50.0-75.0); NRBC % 0.1 % (0.0-0.0); RBC 6.08 Mil/uL (3.80-5.20); RED CELL DISTRIBUTION WIDTH 14.5 % (11.5-14.5); WHITE BLOOD COUNT 5.9 K/uL (4.8-10.8)
[2018-12-19 16:36] LABS: VENOUS BLOOD GAS BASE EXCESS 6.8 mmol/L (0.0-2.0); VENOUS BLOOD GAS PCO2 57 mmHg (40-60); VENOUS BLOOD GAS PO2 21 mm/Hg (30-55); VENOUS BLOOD PH 7.38 (7.32-7.43)
--- NOTE | 2018-12-19 16:38 | CT ---
Date of service: 12/19/2018 PROCEDURE: CT HEAD WITHOUT CONTRAST. HISTORY: Altered mental status. COMPARISON: 07/06/2018 TECHNIQUE: Axial computed tomography images were obtained through the head/brain without intravenous contrast. Supplemental Coronal and Sagittal projections created and reviewed. Radiation dose: Total exam DLP = 994.70 mGy-cm. This CT exam was performed using one or more of the following dose reduction techniques: Automated exposure control, adjustment of the mA and/or kV according to patient size, and/or use of iterative reconstruction technique. FINDINGS: HEMORRHAGE: No intracranial hemorrhage. BRAIN: No mass effect or edema. Cortical and cerebellar atrophy, periventricular small vessel disease. VENTRICLES: Unremarkable. No hydrocephalus. CALVARIUM: Unremarkable. PARANASAL SINUSES: Unremarkable as visualized. No significant inflammatory changes. MASTOID AIR CELLS: Unremarkable as visualized. No inflammatory changes. OTHER FINDINGS: None. IMPRESSION: No acute intracranial abnormalities. No significant findings to account for the clinical presentation. No significant interval change compared to the prior examination(s).
[2018-12-19 16:42] LABS: ALB/GLOB RATIO 1.1 (1.0-2.1); ALBUMIN 4.6 g/dL (3.5-5.0); ALT/SGPT 35 U/L (9-52); AST/SGOT 36 U/L (14-36); BLOOD UREA NITROGEN 26 mg/dl (7-17); GFR NON-AFRICAN AMERICAN > 60
--- NOTE | 2018-12-19 16:43 | CT ---
Date of service: 12/19/2018 PROCEDURE: CT Abdomen and Pelvis without intravenous contrast HISTORY: Renal calculus disease suspected. COMPARISON: 02/24/2016. CT abdomen and pelvis TECHNIQUE: Unenhanced. Neither IV nor oral contrast administered Radiation dose: Total exam DLP = 573.87 mGy-cm. This CT exam was performed using one or more of the following dose reduction techniques: Automated exposure control, adjustment of the mA and/or kV according to patient size, and/or use of iterative reconstruction technique. FINDINGS: LOWER THORAX: Unremarkable. LIVER: Unremarkable. No gross lesion or ductal dilatation. GALLBLADDER AND BILE DUCTS: Unremarkable. PANCREAS: Unremarkable. No gross lesion or ductal dilatation. SPLEEN: Unremarkable. ADRENALS: Unremarkable. No mass. KIDNEYS AND URETERS: Unremarkable. No hydronephrosis. No solid mass. VASCULATURE: Atherosclerotic calcification and mural plaque present. Findings are seen throughout the aorta which is non aneurysmal. BOWEL: Constipation without fecal impaction or obstruction. APPENDIX: A normal appendix is visualized in it's entirety. PERITONEUM: Unremarkable. No free fluid. No free air. LYMPH NODES: Unremarkable. No enlarged lymph nodes. BLADDER: Distended urinary bladder without focal or diffuse abnormalities. REPRODUCTIVE: Anteverted myomatous uterus. Similar findings identified previously. BONES: No acute fracture. OTHER FINDINGS: None. IMPRESSION: No acute or significant findings related to/ accounting for the clinical presentation. Additional benign and/or incidental findings described above. No significant interval change compared to the prior examination(s).
[2018-12-19] MEDS ORDERED: Gentamicin 60mg/50ml NS 60 MG/50 ML BAG IVPB STA (16:56)
[2018-12-19] MEDS ORDERED: Vancomycin 1 g Inj ONE (17:25)
--- NOTE | 2018-12-19 18:14 | RAD ---
Date of service: 12/19/2018 HISTORY: cough COMPARISON: 07/09/2018 FINDINGS: LUNGS: No active pulmonary disease. PLEURA: No significant pleural effusion identified, no pneumothorax apparent. CARDIOVASCULAR: No atherosclerotic calcification present No radiographic findings to suggest acute or significant cardiovascular disease. OSSEOUS STRUCTURES: No significant abnormalities. VISUALIZED UPPER ABDOMEN: Normal. OTHER FINDINGS: None. IMPRESSION: No active disease. No significant interval change compared to the prior examination(s).
[2018-12-19 20:39] LABS: VENOUS BLOOD GAS BASE EXCESS 4.4 mmol/L (0.0-2.0); VENOUS BLOOD GAS PCO2 69 mmHg (40-60); VENOUS BLOOD GAS PO2 13 mm/Hg (30-55); VENOUS BLOOD PH 7.29 (7.32-7.43)
[2018-12-19] MEDS ORDERED: Albuterol-Ipratrop 3 mg / 0.5 (3 ml) UD IH PRN (23:30)
[2018-12-19] MEDS ORDERED: Promethazine DM 6.25 mg-15 mg/5 ml Syrup PO PRN (23:30)
[2018-12-19 23:56] LABS: ABG ALLEN TEST YES; ARTERIAL BLOOD GAS HCO3 25.1 mmol/L (21-28); ARTERIAL BLOOD GAS HEMOGLOBIN 12.9 g/dL (11.7-17.4); ARTERIAL BLOOD GAS O2 CAPACITY 17.7 mL/dL (16-24); ARTERIAL BLOOD GAS O2 CONTENT 17.5 ML/dL (15-23); ARTERIAL BLOOD GAS O2 SAT 98.9 % (95-98); ARTERIAL BLOOD GAS PCO2 42 mm/Hg (35-45); ARTERIAL BLOOD GAS PH 7.39 (7.35-7.45); ARTERIAL BLOOD GAS PO2 93 mm/Hg (80-100); ARTERIAL BLOOD GAS TCO2 26.7 mmol/L (22-28)
[2018-12-20] MEDS: Divalproex 250 mg DR(BID formulation) PO SCH ×3 (00:36→13:07)
[2018-12-20] MEDS ORDERED: Aztreonam 1 GM in Sodium Chloride 0.9% 100 ML IVPB SCH (01:00)
[2018-12-20] MEDS: Sodium Chloride 0.9% 1,000 ML IV SCH ×2 (01:13→13:09)
[2018-12-20 04:18] LABS: SQUAMOUS EPITHIAL 1 /hpf (0-5); URINE BILIRUBIN NEGATIVE (NEGATIVE); URINE BLOOD NEGATIVE (NEGATIVE); URINE CLARITY SLIGHTY-CLOUDY (Clear); URINE COLOR YELLOW (YELLOW); URINE GLUCOSE (UA) >=500 mg/dL (NEGATIVE); URINE LEUKOCYTE ESTERASE NEG Leu/uL (Negative); URINE PROTEIN 30 mg/dL (NEGATIVE); URINE UROBILINOGEN 0.2-1.0 mg/dL (0.2-1.0)
[2018-12-20 06:10] LABS: BASO % 0.5 % (0.0-2.0); EOS # 0.1 K/uL (0.0-0.7); HEMOGLOBIN 13.1 g/dL (12.0-16.0); LYMPH # 2.9 K/uL (1.0-4.3); LYMPH % 34.1 % (20.0-40.0); MEAN CELL VOLUME 77.2 fl (81.0-99.0); MEAN CORPUSCULAR HEMOGLOBIN 23.6 pg (27.0-31.0); MEAN CORPUSCULAR HGB CONC 30.6 g/dL (33.0-37.0); MEAN PLATELET VOLUME 8.7 fl (7.2-11.7); MONO # 0.6 K/uL (0.0-0.8); MONO % 7.6 % (0.0-10.0); NEUT # 4.8 K/uL (1.8-7.0); NEUT % 56.8 % (50.0-75.0); NRBC % 0.1 % (0.0-0.0); RBC 5.56 Mil/uL (3.80-5.20); RED CELL DISTRIBUTION WIDTH 14.7 % (11.5-14.5); WHITE BLOOD COUNT 8.4 K/uL (4.8-10.8)
[2018-12-20 06:31] LABS: ALB/GLOB RATIO 1.1 (1.0-2.1); ALT/SGPT 26 U/L (9-52); AST/SGOT 29 U/L (14-36); BLOOD UREA NITROGEN 28 mg/dl (7-17); CALCIUM 9.3 mg/dL (8.4-10.2); GFR NON-AFRICAN AMERICAN > 60
[2018-12-20] MEDS ORDERED: Pneumococcal 23-Valent Vaccine IM ONE (08:00)
[2018-12-20] MEDS: GlipiZIDE 10 mg SR Tab PO SCH (13:07)
[2018-12-20] MEDS: Hyoscyamine 0.125 mg SL Tab PO SCH (13:08)
--- NOTE | 2018-12-20 14:25 | CP.PCM.HP ---
History of Present Illness - History of Present Illness History of Present Illness: CC: GI Problem. 73 y/o F, with multiple chronic medical condition, including Alzheimer/Dementia, DMII, HTN, O/A, Hypercholeslterolemia. [facility] accompany by daughter on 12/19/18 to be evaluated lack of appetite associated to poor po intake x 3 days [employer]AC[employer] as per daughter, constipation, no BM x 3 days also and no improvement. Worsening symptoms: Hx Dysphagia, severe Dementia, non verbal, completely immobile Aggravated factor: Movements/stand. No: fever, chills, vomiting, diarrhea, abdominal pain, dysuria, CP, palpitations, SOB, cough, sick contact, recent travel out of [place]. Head CT: No acute intracranial abnormalities. CXR: No active disease. Abdomnal/Pelvis CT: No acute significant findings. Present on Admission - Present on Admission Any Indicators Present on Admission: Yes Decubitus Ulcer Present: Yes (sacrum) Review of Systems - Review of Systems Systems not reviewed;Unavailable: Acuity of Condition, Dementia, Altered Mental Status Past Patient History - Infectious Disease Hx of Infectious Diseases: None - Tetanus Immunizations Tetanus Immunization: Unknown - Past Medical History & Family History Past Medical History?: Yes Pertinent Family History: Unknown - Past Social History Smoking Status: Never Smoked Alcohol: None Drugs: Denies Home Situation {Lives}: With Family - CARDIAC Hx Cardiac Disorders: Yes Hx Hypercholesterolemia: Yes Hx Hypertension: Yes - PULMONARY Hx Respiratory Disorders: Yes Hx Pneumonia: Yes Hx Tuberculosis: No - NEUROLOGICAL Hx Neurological Disorder: Yes Hx Alzheimer's Disease: Yes Hx Dementia: Yes Other/Comment: seizure 2 yrs ago??? - HEENT Hx HEENT Problems: Yes Hx Cataracts: Yes Hx Glaucoma: Yes - RENAL Hx Chronic Kidney Disease: No - ENDOCRINE/METABOLIC Hx Endocrine Disorders: Yes Hx Diabetes Mellitus Type 2: Yes - HEMATOLOGICAL/ONCOLOGICAL Hx Blood Disorders: No Hx Human Immunodeficiency Virus (HIV): No - INTEGUMENTARY Hx Dermatological Problems: No - MUSCULOSKELETAL/RHEUMATOLOGICAL Hx Musculoskeletal Disorders: Yes Hx Arthritis: Yes Hx Falls: No - GASTROINTESTINAL Hx Gastrointestinal Disorders: Yes Hx Hemorrhoids: Yes - GENITOURINARY/GYNECOLOGICAL Hx Genitourinary Disorders: Yes Hx Incontinence: Yes Hx Sexually Transmitted Disorders: No - PSYCHIATRIC Hx Psychophysiologic Disorder: Yes Hx Schizophrenia: Yes - SURGICAL HISTORY Hx Surgeries: Yes Hx Section: Yes - ANESTHESIA Hx Anesthesia: Yes Hx Anesthesia Reactions: No Meds Allergies/Adverse Reactions: Allergies Allergy/AdvReac Type Severity Reaction Status Date / Time Penicillins Allergy RASH Verified 12/19/18 15:06 Physical Exam - Constitutional Appears: No Acute Distress, Chronically Ill - Head Exam Head Exam: NORMAL INSPECTION - Eye Exam Eye Exam: PERRL - ENT Exam ENT Exam: Normal Exam - Neck Exam Neck exam: Positive for: Normal Inspection - Respiratory Exam Respiratory Exam: Decreased Breath Sounds - Cardiovascular Exam Cardiovascular Exam: REGULAR RHYTHM - GI/Abdominal Exam GI & Abdominal Exam: Soft. absent: Distended, Tenderness - Exam Additional comments: Purewick Cath in place. - Extremities Exam Additional comments: Heels with blanchable erythema - Back Exam Additional comments: Sacrum and medial buttock with pressure ulcer/DTI - Neurological Exam Additional comments: Non verbal, lethargic, not open eyes, awake to deep tactile stimuli, able to move arms, unable to follows commands. - Skin Skin Exam: Normal Color, Warm Results - Vital Signs Recent Vital Signs: Last Vital Signs Temp 97.7 F 12/20/18 12:00 Pulse 73 12/20/18 12:00 Resp 20 12/20/18 12:00 BP 132/71 12/20/18 12:00 Pulse Ox 100 12/20/18 12:00 randi Soni - Labs Result Diagrams: 12/20/18 04:45 12/21/18 05:25 Labs: Laboratory Results - last 24 hr 12/19/18 12/19/18 12/19/18 16:12 16:12 16:33 WBC 5.9 RBC 6.08 H Hgb 14.3 D Hct 46.2 MCV 76.0 L MCH 23.5 L MCHC 31.0 L RDW 14.5 Plt Count 268 D MPV 8.3 Neut % (Auto) 56.9 Lymph % (Auto) 35.0 [place] % (Auto) 6.7 Eos % (Auto) 0.7 Baso % (Auto) 0.7 Neut # (Auto) 3.4 Lymph # (Auto) 2.1 [place] # (Auto) 0.4 Eos # (Auto) 0.0 Baso # (Auto) 0.0 pCO2 pO2 21 L HCO3 ABG pH ABG Total CO2 ABG O2 Saturation ABG O2 Content ABG Base Excess ABG Hemoglobin ABG Carboxyhemoglobin POC ABG HHb (Measured) ABG Methemoglobin ABG O2 Capacity Paco Test VBG pH 7.38 VBG pCO2 57 VBG HCO3 28.5 VBG Total CO2 35.4 H VBG O2 Sat (Calc) 34.1 L VBG Base Excess 6.8 H VBG Potassium 3.6 A-a O2 Difference Hgb O2 Saturation Glucose 179 H Lactate 2.3 H FiO2 21.0 Crit Value Called To Crit Value Called By Crit Value Read Back Blood Gas Notified Time Sodium 147 148.0 Potassium 3.6 Chloride 107 113.0 H Carbon Dioxide 29 Anion Gap 15 BUN 26 H Creatinine 0.6 L Est GFR ( Amer) > 60 Est GFR (Non-Af Amer) > 60 POC Glucose (mg/dL) Random Glucose 175 H Calcium 10.0 Total Bilirubin 0.4 AST 36 D ALT 35 Alkaline Phosphatase 77 Total Protein 8.7 H Albumin 4.6 Globulin 4.2 H Albumin/Globulin Ratio 1.1 Procalcitonin Venous Blood Potassium 3.6 Urine Color Urine Clarity Urine pH Ur Specific [place] Urine Protein Urine Glucose (UA) Urine Ketones Urine Blood Urine Nitrate Urine Bilirubin Urine Urobilinogen Ur Leukocyte Esterase Urine RBC (Auto) Urine Microscopic WBC Ur Squamous Epith Cells 12/19/18 12/19/18 12/19/18 17:58 20:20 20:36 WBC RBC Hgb Hct MCV MCH MCHC RDW Plt Count MPV Neut % (Auto) Lymph % (Auto) [place] % (Auto) Eos % (Auto) Baso % (Auto) Neut # (Auto) Lymph # (Auto) [place] # (Auto) Eos # (Auto) Baso # (Auto) pCO2 pO2 13 L HCO3 ABG pH ABG Total CO2 ABG O2 Saturation ABG O2 Content ABG Base Excess ABG Hemoglobin ABG Carboxyhemoglobin POC ABG HHb (Measured) ABG Methemoglobin ABG O2 Capacity Paco Test VBG pH 7.29 L VBG pCO2 69 H* VBG HCO3 26.0 VBG Total CO2 35.3 H VBG O2 Sat (Calc) 12.6 L VBG Base Excess 4.4 H VBG Potassium 4.0 A-a O2 Difference Hgb O2 Saturation Glucose 89 Lactate 2.6 H FiO2 21.0 Crit Value Called To Md darryl sanchez Crit Value Called By 23 Crit Value Read Back Y Blood Gas Notified Time 2034 Sodium 153.0 H Potassium Chloride 114.0 H Carbon Dioxide Anion Gap BUN Creatinine Est GFR ( Amer) Est GFR (Non-Af Amer) POC Glucose (mg/dL) 96 Random Glucose Calcium Total Bilirubin AST ALT Alkaline Phosphatase Total Protein Albumin Globulin Albumin/Globulin Ratio Procalcitonin < 0.05 L Venous Blood Potassium 4.0 Urine Color Urine Clarity Urine pH Ur Specific [place] Urine Protein Urine Glucose (UA) Urine Ketones Urine Blood Urine Nitrate Urine Bilirubin Urine Urobilinogen Ur Leukocyte Esterase Urine RBC (Auto) Urine Microscopic WBC Ur Squamous Epith Cells 12/19/18 12/20/18 12/20/18 23:43 01:20 04:45 WBC 8.4 RBC 5.56 H Hgb 13.1 Hct 42.9 MCV 77.2 L MCH 23.6 L MCHC 30.6 L RDW 14.7 H Plt Count 217 MPV 8.7 Neut % (Auto) 56.8 Lymph % (Auto) 34.1 [place] % (Auto) 7.6 Eos % (Auto) 1.0 Baso % (Auto) 0.5 Neut # (Auto) 4.8 Lymph # (Auto) 2.9 [place] # (Auto) 0.6 Eos # (Auto) 0.1 Baso # (Auto) 0.0 pCO2 42 pO2 93 HCO3 25.1 ABG pH 7.39 ABG Total CO2 26.7 ABG O2 Saturation 98.9 H ABG O2 Content 17.5 ABG Base Excess 0.3 ABG Hemoglobin 12.9 ABG Carboxyhemoglobin 1.9 H POC ABG HHb (Measured) 1.1 ABG Methemoglobin 1.2 ABG O2 Capacity 17.7 Paco Test Yes VBG pH VBG pCO2 VBG HCO3 VBG Total CO2 VBG O2 Sat (Calc) VBG Base Excess VBG Potassium A-a O2 Difference 4.0 Hgb O2 Saturation 95.8 Glucose Lactate FiO2 21.0 Crit Value Called To Crit Value Called By Crit Value Read Back Blood Gas Notified Time Sodium Potassium Chloride Carbon Dioxide Anion Gap BUN Creatinine Est GFR ( Amer) Est GFR (Non-Af Amer) POC Glucose (mg/dL) Random Glucose Calcium Total Bilirubin AST ALT Alkaline Phosphatase Total Protein Albumin Globulin Albumin/Globulin Ratio Procalcitonin Venous Blood Potassium Urine Color Yellow Urine Clarity Slighty-cloudy Urine pH 5.0 Ur Specific [place] 1.043 H Urine Protein 30 Urine Glucose (UA) >=500 Urine Ketones 20 Urine Blood Negative Urine Nitrate Negative Urine Bilirubin Negative Urine Urobilinogen 0.2-1.0 Ur Leukocyte Esterase Neg Urine RBC (Auto) 2 Urine Microscopic WBC 1 Ur Squamous Epith Cells 1 12/20/18 12/20/18 04:45 06:34 WBC RBC Hgb Hct MCV MCH MCHC RDW Plt Count MPV Neut % (Auto) Lymph % (Auto) [place] % (Auto) Eos % (Auto) Baso % (Auto) Neut # (Auto) Lymph # (Auto) [place] # (Auto) Eos # (Auto) Baso # (Auto) pCO2 pO2 HCO3 ABG pH ABG Total CO2 ABG O2 Saturation ABG O2 Content ABG Base Excess ABG Hemoglobin ABG Carboxyhemoglobin POC ABG HHb (Measured) ABG Methemoglobin ABG O2 Capacity Paco Test VBG pH VBG pCO2 VBG HCO3 VBG Total CO2 VBG O2 Sat (Calc) VBG Base Excess VBG Potassium A-a O2 Difference Hgb O2 Saturation Glucose Lactate FiO2 Crit Value Called To Crit Value Called By Crit Value Read Back Blood Gas Notified Time Sodium 148 Potassium 4.0 Chloride 112 H Carbon Dioxide 23 Anion Gap 17 BUN 28 H Creatinine 0.4 L Est GFR ( Amer) > 60 Est GFR (Non-Af Amer) > 60 POC Glucose (mg/dL) 123 H Random Glucose 125 H Calcium 9.3 Total Bilirubin 0.6 AST 29 ALT 26 Alkaline Phosphatase 65 Total Protein 7.5 Albumin 4.0 Globulin 3.5 Albumin/Globulin Ratio 1.1 Procalcitonin Venous Blood Potassium Urine Color Urine Clarity Urine pH Ur Specific [place] Urine Protein Urine Glucose (UA) Urine Ketones Urine Blood Urine Nitrate Urine Bilirubin Urine Urobilinogen Ur Leukocyte Esterase Urine RBC (Auto) Urine Microscopic WBC Ur Squamous Epith Cells ewed J.P. - EKG Data EKG comments: reviewed J.P. - Imaging and Cardiology Chest x-ray Status: Report reviewed by me (J.P.) CT scan - abdomen Status: Report reviewed by me (J.P.) CT scan - pelvis Status: Report reviewed by me (J.P.) Assessment & Plan (1) Altered mental status Status: Acute Priority: High (2) Dehydration Status: Acute Priority: High (3) Dementia Status: Chronic Priority: High (4) Hyperglycemia Status: Chronic Priority: High (5) Diabetes mellitus Status: Chronic Priority: High (6) Lack of appetite Status: Acute Priority: High (7) Constipated Status: Acute Priority: High - Assessment and Plan (Free Text) Plan: F/U EEG, Blood C-S, U C-S, NPO until [place] eval, continue O2 NC, with Sodium Chl, Proshield Plus, Lovenox, Valproate, Remeron, Lipitor and rest of Tx. Neurology consult - Date & Time Date: 12/20/18 Time: 13:40
[2018-12-20] MEDS: VALPROATE IVPB SCH (17:38)
[2018-12-20] MEDS: SODIUM CHLORIDE 0.9% IVPB SCH (17:38)
[2018-12-20] MEDS: Proshield Plus GEL TOP SCH (17:51)
[2018-12-20] MEDS: Enoxaparin 40 mg Syringe SC SCH (17:51)
[2018-12-20] MEDS: Latanoprost 0.005% Opht SOUTION OU SCH (21:57)
[2018-12-20] MEDS: Insulin Detemir 100 Units/ml Inj SC SCH (21:58)
--- NOTE | 2018-12-21 00:27 | CP.PCM.CON ---
History of Present Illness - History of Present Illness History of Present Illness: Neurology consult dictated. Miss Renteria is a woman with severe dementia who is admitted for possibel sepsis. She may have had a seizure outpatient, and will need to be loaded with depakote 1000 mg IV and 500 mg bid. We will monitor her lfts Dr. hCo Neurology Past Patient History - Infectious Disease Hx of Infectious Diseases: None - Tetanus Immunizations Tetanus Immunization: Unknown - Past Medical History & Family History Past Medical History?: Yes - Past Social History Smoking Status: Never Smoked Alcohol: None Drugs: Denies Home Situation {Lives}: With Family - CARDIAC Hx Cardiac Disorders: Yes Hx Hypercholesterolemia: Yes Hx Hypertension: Yes - PULMONARY Hx Respiratory Disorders: Yes Hx Pneumonia: Yes Hx Tuberculosis: No - NEUROLOGICAL Hx Neurological Disorder: Yes Hx Alzheimer's Disease: Yes Hx Dementia: Yes Hx Seizures: No - HEENT Hx HEENT Problems: Yes Hx Cataracts: Yes Hx Glaucoma: Yes - RENAL Hx Chronic Kidney Disease: No - ENDOCRINE/METABOLIC Hx Endocrine Disorders: Yes Hx Diabetes Mellitus Type 2: Yes - HEMATOLOGICAL/ONCOLOGICAL Hx Blood Disorders: No Hx Human Immunodeficiency Virus (HIV): No - INTEGUMENTARY Hx Dermatological Problems: No - MUSCULOSKELETAL/RHEUMATOLOGICAL Hx Musculoskeletal Disorders: Yes Hx Arthritis: Yes Hx Falls: No - GASTROINTESTINAL Hx Gastrointestinal Disorders: Yes Hx Hemorrhoids: Yes - GENITOURINARY/GYNECOLOGICAL Hx Genitourinary Disorders: Yes Hx Incontinence: Yes Hx Sexually Transmitted Disorders: No - PSYCHIATRIC Hx Psychophysiologic Disorder: Yes Hx Schizophrenia: Yes - SURGICAL HISTORY Hx Surgeries: Yes Hx Section: Yes - ANESTHESIA Hx Anesthesia: Yes Hx Anesthesia Reactions: No Meds Allergies/Adverse Reactions: Allergies Allergy/AdvReac Type Severity Reaction Status Date / Time Penicillins Allergy RASH Verified 12/19/18 15:06 - Medications Medications: Current Medications Albuterol/Ipratropium (Duoneb 3 Mg/0.5 Mg (3 Ml) Ud) 3 ml IH RQ8 PRN PRN Reason: Shortness of Breath Atorvastatin Calcium (Lipitor) 40 mg PO HS [facility] Last Admin: 12/20/18 21:59 Dose: 40 mg Dimethicone (Proshield Plus Skin Protectant) 1 applic TOP Q8 [facility] Last Admin: 12/20/18 17:51 Dose: 1 applic Enoxaparin Sodium (Lovenox) 40 mg SC DAILY [facility]; Protocol Last Admin: 12/20/18 17:51 Dose: 40 mg Glipizide (Glucotrol Xl) 10 mg PO ACB [facility] Last Admin: 12/20/18 13:07 Dose: Not Given Home Med (Canagliflozin [Invokana]) 100 mg PO BID [facility] Hyoscyamine (Levsin) 0.125 mg PO DAILY [facility] Last Admin: 12/20/18 13:08 Dose: Not Given Sodium Chloride (Sodium Chloride 0.9%) 1,000 mls @ 90 mls/hr IV .[id number] [facility] Stop: 12/21/18 00:45 Last Admin: 12/20/18 13:09 Dose: 90 mls/hr Valproate Sodium 375 mg/ (Sodium Chloride) 103.75 mls @ 100 mls/hr IVPB Q12H [facility] Last Admin: 12/20/18 17:38 Dose: 100 mls/hr Insulin Detemir (Levemir) 8 units SC HS [facility] Last Admin: 12/20/18 21:58 Dose: 8 units Latanoprost (Xalatan Opht) 1 drop OU HS [facility] Last Admin: 12/20/18 21:57 Dose: 1 drop Memantine (Namenda) 10 mg PO Q12 [facility] Last Admin: 12/20/18 21:57 Dose: 10 mg Metformin HCl (Glucophage) 1,000 mg PO DAILY [facility] Last Admin: 12/20/18 13:07 Dose: Not Given Metolazone (Zaroxolyn) 2.5 mg PO MWF [facility] Metoprolol Tartrate (Lopressor) 25 mg PO Q12 [facility] Last Admin: 12/20/18 21:55 Dose: 25 mg Mirtazapine (Remeron) 7.5 mg PO [facility] Last Admin: 12/20/18 21:56 Dose: 7.5 mg Promethazine HCl/Dextromethorphan (Phenergan Dm Syrup) 5 ml PO Q6 PRN PRN Reason: Cough Quetiapine Fumarate (Seroquel) 50 mg PO QID [facility] Last Admin: 12/20/18 21:54 Dose: 50 mg Sitagliptin Phosphate (Januvia) 100 mg PO DAILY [facility] Last Admin: 12/20/18 13:07 Dose: Not Given Results - Vital Signs Recent Vital Signs: Last Vital Signs Temp 98.0 F 12/21/18 00:23 Pulse 77 12/21/18 00:23 Resp 18 12/21/18 00:23 BP 130/58 L 12/21/18 00:23 Pulse Ox 100 12/21/18 00:23 - Labs Result Diagrams: 12/20/18 04:45 12/20/18 04:45 Labs: Laboratory Results - last 24 hr 12/20/18 12/20/18 12/20/18 01:20 04:45 04:45 WBC 8.4 RBC 5.56 H Hgb 13.1 Hct 42.9 MCV 77.2 L MCH 23.6 L MCHC 30.6 L RDW 14.7 H Plt Count 217 MPV 8.7 Neut % (Auto) 56.8 Lymph % (Auto) 34.1 [place] % (Auto) 7.6 Eos % (Auto) 1.0 Baso % (Auto) 0.5 Neut # (Auto) 4.8 Lymph # (Auto) 2.9 [place] # (Auto) 0.6 Eos # (Auto) 0.1 Baso # (Auto) 0.0 Sodium 148 Potassium 4.0 Chloride 112 H Carbon Dioxide 23 Anion Gap 17 BUN 28 H Creatinine 0.4 L Est GFR ( Amer) > 60 Est GFR (Non-Af Amer) > 60 POC Glucose (mg/dL) Random Glucose 125 H Calcium 9.3 Total Bilirubin 0.6 AST 29 ALT 26 Alkaline Phosphatase 65 Total Protein 7.5 Albumin 4.0 Globulin 3.5 Albumin/Globulin Ratio 1.1 Urine Color Yellow Urine Clarity Slighty-cloudy Urine pH 5.0 Ur Specific [place] 1.043 H Urine Protein 30 Urine Glucose (UA) >=500 Urine Ketones 20 Urine Blood Negative Urine Nitrate Negative Urine Bilirubin Negative Urine Urobilinogen 0.2-1.0 Ur Leukocyte Esterase Neg Urine RBC (Auto) 2 Urine Microscopic WBC 1 Ur Squamous Epith Cells 1 Valproic Acid 12/20/18 12/20/18 12/20/18 06:34 11:05 13:58 WBC RBC Hgb Hct MCV MCH MCHC RDW Plt Count MPV Neut % (Auto) Lymph % (Auto) [place] % (Auto) Eos % (Auto) Baso % (Auto) Neut # (Auto) Lymph # (Auto) [place] # (Auto) Eos # (Auto) Baso # (Auto) Sodium Potassium Chloride Carbon Dioxide Anion Gap BUN Creatinine Est GFR ( Amer) Est GFR (Non-Af Amer) POC Glucose (mg/dL) 123 H 135 H Random Glucose Calcium Total Bilirubin AST ALT Alkaline Phosphatase Total Protein Albumin Globulin Albumin/Globulin Ratio Urine Color Urine Clarity Urine pH Ur Specific [place] Urine Protein Urine Glucose (UA) Urine Ketones Urine Blood Urine Nitrate Urine Bilirubin Urine Urobilinogen Ur Leukocyte Esterase Urine RBC (Auto) Urine Microscopic WBC Ur Squamous Epith Cells Valproic Acid < 10.0 L 12/20/18 12/20/18 16:06 21:31 WBC RBC Hgb Hct MCV MCH MCHC RDW Plt Count MPV Neut % (Auto) Lymph % (Auto) [place] % (Auto) Eos % (Auto) Baso % (Auto) Neut # (Auto) Lymph # (Auto) [place] # (Auto) Eos # (Auto) Baso # (Auto) Sodium Potassium Chloride Carbon Dioxide Anion Gap BUN Creatinine Est GFR ( Amer) Est GFR (Non-Af Amer) POC Glucose (mg/dL) 188 H 156 H Random Glucose Calcium Total Bilirubin AST ALT Alkaline Phosphatase Total Protein Albumin Globulin Albumin/Globulin Ratio Urine Color Urine Clarity Urine pH Ur Specific [place] Urine Protein Urine Glucose (UA) Urine Ketones Urine Blood Urine Nitrate Urine Bilirubin Urine Urobilinogen Ur Leukocyte Esterase Urine RBC (Auto) Urine Microscopic WBC Ur Squamous Epith Cells Valproic Acid
[2018-12-21] MEDS: Proshield Plus GEL TOP SCH ×3 (01:51→17:49)
[2018-12-21] MEDS: Sodium Chloride 0.9% 1,000 ML IV SCH ×2 (04:47→04:50)
[2018-12-21] MEDS: VALPROATE IVPB SCH (04:50)
[2018-12-21] MEDS: SODIUM CHLORIDE 0.9% IVPB SCH (04:50)
[2018-12-21 06:11] LABS: BLOOD UREA NITROGEN 25 mg/dl (7-17); CALCIUM 8.9 mg/dL (8.4-10.2); GFR NON-AFRICAN AMERICAN > 60
[2018-12-21] MEDS: metOLazone 2.5 MG TAB PO SCH (09:19)
[2018-12-21] MEDS: Hyoscyamine 0.125 mg SL Tab PO SCH (09:20)
[2018-12-21] MEDS: GlipiZIDE 10 mg SR Tab PO SCH (09:20)
[2018-12-21] MEDS: Enoxaparin 40 mg Syringe SC SCH (09:20)
--- NOTE | 2018-12-21 10:47 | CP.PCM.PN ---
Subjective - Date & Time of Evaluation Date of Evaluation: 12/21/18 Time of Evaluation: 10:46 - Subjective Subjective: Neuro Follow-Up Note: Mrs. Renteria was evaluated this afternoon at bedside. Daughter present as well. Daughter verbalizes to me that she does not want her mother receiving Depakote. Depakote is listed on pt's home meds, and she was started on this for mood stabilization by her psychiatrist Dr. Hernandez, 3 years ago. Pt's daughter stopped this medication a little over a year ago without discussing it with Dr. Hernandez. Pt has not seen Dr. Hernandez in approx 1 year either. Pt;s daughter also reports to me that she noticed the pt's legs twitch on/off several times since starting the Depakote and attributes the twitching to the Depakote. After lengthy discussion with the daughter about the use and benefits of Depakote in this case, she is still adamant about her mother not receiving the medication. Pt is nonverbal, has baseline dementia, does not follow commands or participate in the neuro exam. Though she looks comfortable and in no distress. Per daughter this is the baseline of the pt. ROS is unobtainable from the pt 2/2 her mental status. Objective - Vital Signs/Intake and Output Vital Signs (last 24 hours): Temp Pulse Resp BP Pulse Ox 97.3 F L 62 20 134/74 99 12/21/18 08:26 12/21/18 09:36 12/21/18 08:26 12/21/18 09:36 12/21/18 08:26 - Medications Medications: Current Medications Albuterol/Ipratropium (Duoneb 3 Mg/0.5 Mg (3 Ml) Ud) 3 ml IH RQ8 PRN PRN Reason: Shortness of Breath Atorvastatin Calcium (Lipitor) 40 mg PO HS [facility] Last Admin: 12/20/18 21:59 Dose: 40 mg Dimethicone (Proshield Plus Skin Protectant) 1 applic TOP Q8 [facility] Last Admin: 12/21/18 09:20 Dose: 1 applic Enoxaparin Sodium (Lovenox) 40 mg SC DAILY [facility]; Protocol Last Admin: 12/21/18 09:20 Dose: 40 mg Glipizide (Glucotrol Xl) 10 mg PO ACB [facility] Last Admin: 12/21/18 09:20 Dose: 10 mg Home Med (Canagliflozin [Invokana]) 100 mg PO BID [facility] Hyoscyamine (Levsin) 0.125 mg PO DAILY [facility] Last Admin: 12/21/18 09:20 Dose: 0.125 mg Valproate Sodium 375 mg/ (Sodium Chloride) 103.75 mls @ 100 mls/hr IVPB Q12H [facility] Last Admin: 12/21/18 04:50 Dose: 100 mls/hr Insulin Detemir (Levemir) 8 units SC [facility] Last Admin: 12/20/18 21:58 Dose: 8 units Latanoprost (Xalatan Opht) 1 drop OU HS [facility] Last Admin: 12/20/18 21:57 Dose: 1 drop Memantine (Namenda) 10 mg PO Q12 [facility] Last Admin: 12/21/18 09:19 Dose: 10 mg Metformin HCl (Glucophage) 1,000 mg PO DAILY [facility] Last Admin: 12/21/18 09:20 Dose: 1,000 mg Metolazone (Zaroxolyn) 2.5 mg PO MWF [facility] Last Admin: 12/21/18 09:19 Dose: 2.5 mg Metoprolol Tartrate (Lopressor) 25 mg PO Q12 [facility] Last Admin: 12/21/18 09:36 Dose: 25 mg Mirtazapine (Remeron) 7.5 mg PO [facility] Last Admin: 12/20/18 21:56 Dose: 7.5 mg Promethazine HCl/Dextromethorphan (Phenergan Dm Syrup) 5 ml PO Q6 PRN PRN Reason: Cough Quetiapine Fumarate (Seroquel) 50 mg PO QID [facility] Last Admin: 12/21/18 09:20 Dose: 50 mg Sitagliptin Phosphate (Januvia) 100 mg PO DAILY [facility] Last Admin: 12/21/18 09:19 Dose: 100 mg - Labs Labs: 12/20/18 04:45 12/21/18 05:25 - Constitutional Appears: Well, Non-toxic, No Acute Distress - Head Exam Head Exam: ATRAUMATIC, NORMAL INSPECTION, NORMOCEPHALIC - Eye Exam Eye Exam: Normal appearance. absent: Nystagmus Pupil Exam: NORMAL ACCOMODATION, PERRL - ENT Exam ENT Exam: Mucous Membranes Dry - Neck Exam Neck Exam: Normal Inspection - Respiratory Exam Respiratory Exam: NORMAL BREATHING PATTERN - GI/Abdominal Exam GI & Abdominal Exam: Soft. absent: Tenderness - Extremities Exam Extremities Exam: absent: Pedal Edema Additional comments: Able to move extremities without resistance; pt does not follow commands to assess ROM - Neurological Exam Neurological Exam: Altered Additional comments: Baseline dementia; non verbal; does not follow commands. Able to move extremities without resistance; pt does not follow commands to assess ROM. Unable to assess sensation though appears intact No tremors or abnormal myoclonic movements noted - Psychiatric Exam Additional comments: baseline dementia nonverbal - Skin Skin Exam: Normal Color Assessment and Plan (1) Altered mental status Assessment & Plan: Imaging reviewed: -CT Head (12/19/18): no acute intracranial abnormalities. No significant findings to account for the clinical presentation. No significant interval change compared to the prior examinations. -May be encephalopathy 2/2 dehydration and poor po intake vs dementia vs seizure vs stroke. -Pending Brain MRI and EEG to be done (both exams orders by primary team)---f/u with results; if negative neuro will sign off. -Valproic ACid level low at < 10. Please note that the pt has not taken Depakote at home in approx 1 year. -Per daughter's request, Valproic Acid IV was d/c'd. We can restart if the pt's daughter is in agreement with it. -Continue conservative management of other ongoing medical issues. Tisha Castanon, DNP, [employer] DEVELOPER d/w Dr. Cho Status: Acute
--- NOTE | 2018-12-21 13:02 | CP.PCM.PN ---
Subjective - Date & Time of Evaluation Date of Evaluation: 12/21/18 Time of Evaluation: 12:00 - Subjective Subjective: F/U AMS. Pt non verbal, minimal response to tactile stimuli. Objective - Vital Signs/Intake and Output Vital Signs (last 24 hours): Temp Pulse Resp BP Pulse Ox 97.3 F L 62 20 134/74 99 12/21/18 08:26 12/21/18 09:36 12/21/18 08:26 12/21/18 09:36 12/21/18 08:26 - Medications Medications: Current Medications Albuterol/Ipratropium (Duoneb 3 Mg/0.5 Mg (3 Ml) Ud) 3 ml IH RQ8 PRN PRN Reason: Shortness of Breath Atorvastatin Calcium (Lipitor) 40 mg PO [facility] Last Admin: 12/20/18 21:59 Dose: 40 mg Dimethicone (Proshield Plus Skin Protectant) 1 applic TOP Q8 [facility] Last Admin: 12/21/18 09:20 Dose: 1 applic Enoxaparin Sodium (Lovenox) 40 mg SC DAILY [facility]; Protocol Last Admin: 12/21/18 09:20 Dose: 40 mg Glipizide (Glucotrol Xl) 10 mg PO ACB [facility] Last Admin: 12/21/18 09:20 Dose: 10 mg Hyoscyamine (Levsin) 0.125 mg PO DAILY [facility] Last Admin: 12/21/18 09:20 Dose: 0.125 mg Insulin Detemir (Levemir) 8 units SC [facility] Last Admin: 12/20/18 21:58 Dose: 8 units Latanoprost (Xalatan Opht) 1 drop OU [facility] Last Admin: 12/20/18 21:57 Dose: 1 drop Memantine (Namenda) 10 mg PO Q12 [facility] Last Admin: 12/21/18 09:19 Dose: 10 mg Metformin HCl (Glucophage) 1,000 mg PO DAILY [facility] Last Admin: 12/21/18 09:20 Dose: 1,000 mg Metolazone (Zaroxolyn) 2.5 mg PO MWF [facility] Last Admin: 12/21/18 09:19 Dose: 2.5 mg Metoprolol Tartrate (Lopressor) 25 mg PO Q12 [facility] Last Admin: 12/21/18 09:36 Dose: 25 mg Mirtazapine (Remeron) 7.5 mg PO HS [facility] Last Admin: 12/20/18 21:56 Dose: 7.5 mg Promethazine HCl/Dextromethorphan (Phenergan Dm Syrup) 5 ml PO Q6 PRN PRN Reason: Cough Quetiapine Fumarate (Seroquel) 50 mg PO QID [facility] Last Admin: 12/21/18 09:20 Dose: 50 mg Sitagliptin Phosphate (Januvia) 100 mg PO DAILY [facility] Last Admin: 12/21/18 09:19 Dose: 100 mg - Labs Labs: 12/20/18 04:45 12/21/18 05:25 - Constitutional Appears: Chronically Ill - Head Exam Head Exam: NORMAL INSPECTION - Eye Exam Eye Exam: PERRL - ENT Exam ENT Exam: Normal Exam - Neck Exam Neck Exam: Normal Inspection - Respiratory Exam Respiratory Exam: Decreased Breath Sounds - Cardiovascular Exam Cardiovascular Exam: REGULAR RHYTHM - GI/Abdominal Exam GI & Abdominal Exam: Soft. absent: Distended - Exam Additional comments: Purewick cath in place - Extremities Exam Additional comments: Heels with blanchable erythema - Back Exam Additional comments: Sacrum and medial buttock with pressure ulcer/ DTI - Neurological Exam Additional comments: Non verbal, minimal response to tactile stimuli, able to move arms, unable to follows commands. - Skin Skin Exam: Normal Color, Warm Assessment and Plan (1) Altered mental status Status: Acute (2) Dehydration Status: Acute (3) Dementia Status: Chronic (4) Hyperglycemia Status: Chronic (5) Diabetes mellitus Status: Chronic (6) Lack of appetite Status: Acute (7) Constipated Status: Acute - Assessment and Plan (Free Text) Plan: F/U MRI Brain and EEG, continue current Tx.
--- NOTE | 2018-12-21 13:38 | PCM.EEG ---
Electroencephalogram Report - Electroencephalogram Report Procedure Date: 12/21/18 Medication: Deapkote, Namenda, Remeron Interpretation: Technical Information: This was a 16-channel EEG, 1-channel EKG , performed using an [employer] machine., electrodes were applied according to the 10/20 international placement system, impedances were less than 5 K Ohm. Start; 10;59 End; 11;47 Total 48 minutes Clinical Information: dementia and seizures. EEG Detail: During resting wakefulness when the patient was stimulated there was a poorly developed symmetric posterior dominant rhythm at 6 Hz, 30-50 uV, which was poorly reactive to eye opening and closing, most of the EEG showed diffuse 5 to 6 Hz slowing with periods of relative EEG attenuation. lastin 2 to 4 seconds. Drowsiness (11;04) was associated with diffuse 5 to6 Hz slowing. Sleep was not seen. there was germania symmetry of the hemisphere with the left begin more attenuated than the right, no clear focality. Hyperventilation was not performed. Photic stimulation was not performed . Impression: This is an abnormal EEG record that demonstrate the presence of a moderate non specific diffuse disturbance of cortical activity, this is in keeping with a diffuse cat matter dysfunction. These findings do not support a specific etiology. No seizures, not in status epilepticus.
[2018-12-21] MEDS: Insulin Detemir 100 Units/ml Inj SC SCH (21:30)
[2018-12-21] MEDS: Latanoprost 0.005% Opht SOUTION OU SCH (21:30)
[2018-12-22] MEDS: Proshield Plus GEL TOP SCH ×3 (01:00→17:07)
[2018-12-22] MEDS: GlipiZIDE 10 mg SR Tab PO SCH (07:30)
[2018-12-22] MEDS: Enoxaparin 40 mg Syringe SC SCH (08:54)
[2018-12-22] MEDS: Hyoscyamine 0.125 mg SL Tab PO SCH (08:54)
--- NOTE | 2018-12-22 14:26 | CP.PCM.PN ---
Subjective - Date & Time of Evaluation Date of Evaluation: 12/22/18 Time of Evaluation: 12:50 - Subjective Subjective: F/U AMS lethargic Objective - Vital Signs/Intake and Output Vital Signs (last 24 hours): Temp Pulse Resp BP Pulse Ox 98.7 F 70 20 123/76 100 12/22/18 11:46 12/22/18 11:46 12/22/18 11:46 12/22/18 11:46 12/22/18 11:46 - Medications Medications: Current Medications Albuterol/Ipratropium (Duoneb 3 Mg/0.5 Mg (3 Ml) Ud) 3 ml IH RQ8 PRN PRN Reason: Shortness of Breath Atorvastatin Calcium (Lipitor) 40 mg PO [facility] Last Admin: 12/21/18 21:35 Dose: Not Given Dimethicone (Proshield Plus Skin Protectant) 1 applic TOP Q8 [facility] Last Admin: 12/22/18 08:54 Dose: Not Given Enoxaparin Sodium (Lovenox) 40 mg SC DAILY [facility]; Protocol Last Admin: 12/22/18 08:54 Dose: Not Given Glipizide (Glucotrol Xl) 10 mg PO ACB [facility] Last Admin: 12/22/18 07:30 Dose: 10 mg Hyoscyamine (Levsin) 0.125 mg PO DAILY [facility] Last Admin: 12/22/18 08:54 Dose: Not Given Insulin Detemir (Levemir) 8 units SC [facility] Last Admin: 12/21/18 21:30 Dose: 8 units Latanoprost (Xalatan Opht) 1 drop OU [facility] Last Admin: 12/21/18 21:30 Dose: 1 drop Memantine (Namenda) 10 mg PO Q12 [facility] Last Admin: 12/22/18 08:54 Dose: Not Given Metformin HCl (Glucophage) 1,000 mg PO DAILY [facility] Last Admin: 12/22/18 08:53 Dose: 1,000 mg Metolazone (Zaroxolyn) 2.5 mg PO MWF [facility] Last Admin: 12/21/18 09:19 Dose: 2.5 mg Metoprolol Tartrate (Lopressor) 25 mg PO Q12 [facility] Last Admin: 12/22/18 08:53 Dose: 25 mg Mirtazapine (Remeron) 7.5 mg PO [facility] Last Admin: 12/21/18 21:35 Dose: Not Given Promethazine HCl/Dextromethorphan (Phenergan Dm Syrup) 5 ml PO Q6 PRN PRN Reason: Cough Quetiapine Fumarate (Seroquel) 50 mg PO QID [facility] Last Admin: 12/22/18 13:06 Dose: Not Given Sitagliptin Phosphate (Januvia) 100 mg PO DAILY [facility] Last Admin: 12/22/18 08:53 Dose: 100 mg - Labs Labs: 12/20/18 04:45 12/21/18 05:25 - Constitutional Appears: Chronically Ill - Head Exam Head Exam: NORMAL INSPECTION - Eye Exam Eye Exam: PERRL - ENT Exam ENT Exam: Normal Exam - Neck Exam Neck Exam: Normal Inspection - Respiratory Exam Respiratory Exam: Decreased Breath Sounds (at bases) - Cardiovascular Exam Cardiovascular Exam: Tachycardia - GI/Abdominal Exam GI & Abdominal Exam: Soft, Normal Bowel Sounds - Extremities Exam Extremities Exam: Normal Inspection - Neurological Exam Additional comments: lethargic , minimal response to tactil stimuli - Skin Skin Exam: Warm Assessment and Plan (1) Altered mental status Status: Acute (2) Dehydration Status: Acute (3) Dementia Status: Chronic (4) Hyperglycemia Status: Chronic (5) Diabetes mellitus Status: Chronic (6) Lack of appetite Status: Acute (7) Constipated Status: Acute - Assessment and Plan (Free Text) Plan: DC all po meds, f/u MRI Brain
[2018-12-22] MEDS: Latanoprost 0.005% Opht SOUTION OU SCH (21:45)
[2018-12-22] MEDS: Insulin Detemir 100 Units/ml Inj SC SCH (21:45)
[2018-12-23] MEDS: Proshield Plus GEL TOP SCH ×3 (01:00→17:49)
[2018-12-23] MEDS: GlipiZIDE 10 mg SR Tab PO SCH (07:30)
[2018-12-23] MEDS: Hyoscyamine 0.125 mg SL Tab PO SCH (08:43)
[2018-12-23] MEDS: Enoxaparin 40 mg Syringe SC SCH (08:44)
[2018-12-23] MEDS: Sodium Chloride 0.45% 1,000 ML IV SCH (16:30)
--- NOTE | 2018-12-23 16:33 | CP.PCM.PN ---
Subjective - Date & Time of Evaluation Date of Evaluation: 12/23/18 Time of Evaluation: 14:00 - Subjective Subjective: F/U AMS lethargic, minimal response to tactil stimuli Objective - Vital Signs/Intake and Output Vital Signs (last 24 hours): Temp Pulse Resp BP Pulse Ox 98.2 F 76 18 117/78 97 12/23/18 16:07 12/23/18 16:07 12/23/18 16:07 12/23/18 16:07 12/23/18 16:07 Intake and Output: 12/23/18 12/23/18 06:59 18:59 Intake Total 200 Output Total 900 Balance -700 - Medications Medications: Current Medications Albuterol/Ipratropium (Duoneb 3 Mg/0.5 Mg (3 Ml) Ud) 3 ml IH RQ8 PRN PRN Reason: Shortness of Breath Atorvastatin Calcium (Lipitor) 40 mg PO HS [facility] Last Admin: 12/22/18 22:00 Dose: Not Given Dimethicone (Proshield Plus Skin Protectant) 1 applic TOP Q8 [facility] Last Admin: 12/23/18 08:45 Dose: 1 applic Glipizide (Glucotrol Xl) 10 mg PO ACB [facility] Last Admin: 12/23/18 07:30 Dose: 10 mg Hyoscyamine (Levsin) 0.125 mg PO DAILY [facility] Last Admin: 12/23/18 08:43 Dose: Not Given Sodium Chloride (Sodium Chloride 0.45%) 1,000 mls @ 80 mls/hr IV .[id number] [facility] Stop: 12/24/18 16:28 Insulin Detemir (Levemir) 8 units SC [facility] Last Admin: 12/22/18 21:45 Dose: 8 units Latanoprost (Xalatan Opht) 1 drop OU HS [facility] Last Admin: 12/22/18 21:45 Dose: 1 drop Memantine (Namenda) 10 mg PO Q12 [facility] Last Admin: 12/23/18 08:44 Dose: Not Given Metformin HCl (Glucophage) 1,000 mg PO DAILY [facility] Last Admin: 12/23/18 08:45 Dose: 1,000 mg Metolazone (Zaroxolyn) 2.5 mg PO MWF [facility] Last Admin: 12/21/18 09:19 Dose: 2.5 mg Metoprolol Tartrate (Lopressor) 25 mg PO Q12 [facility] Last Admin: 12/23/18 08:45 Dose: 25 mg Mirtazapine (Remeron) 7.5 mg PO HS [facility] Last Admin: 12/22/18 22:00 Dose: Not Given Promethazine HCl/Dextromethorphan (Phenergan Dm Syrup) 5 ml PO Q6 PRN PRN Reason: Cough Quetiapine Fumarate (Seroquel) 50 mg PO QID [facility] Last Admin: 12/23/18 15:49 Dose: Not Given Sitagliptin Phosphate (Januvia) 100 mg PO DAILY [facility] Last Admin: 12/23/18 08:45 Dose: 100 mg - Labs Labs: 12/20/18 04:45 12/21/18 05:25 - Constitutional Appears: Chronically Ill - Head Exam Head Exam: NORMAL INSPECTION - Eye Exam Eye Exam: PERRL - ENT Exam ENT Exam: Normal Exam - Neck Exam Neck Exam: Normal Inspection - Respiratory Exam Respiratory Exam: Decreased Breath Sounds (at bases) - Cardiovascular Exam Cardiovascular Exam: REGULAR RHYTHM - GI/Abdominal Exam GI & Abdominal Exam: Soft, Normal Bowel Sounds - Extremities Exam Extremities Exam: Normal Inspection - Neurological Exam Additional comments: lethargic, minimal response to tactil stimuli Assessment and Plan (1) Altered mental status Status: Acute (2) Dehydration Status: Acute (3) Dementia Status: Chronic (4) Hyperglycemia Status: Chronic (5) Diabetes mellitus Status: Chronic (6) Lack of appetite Status: Acute (7) Constipated Status: Acute - Assessment and Plan (Free Text) Plan: EEG diffuse non specific cat matter dysfunction, MRI Brain was not done, NPO , IVF, monitor BS,discussed with Patent's family at bedside , They do not want PEG tube
[2018-12-23] MEDS: Latanoprost 0.005% Opht SOUTION OU SCH (21:51)
[2018-12-23] MEDS: Insulin Detemir 100 Units/ml Inj SC SCH (21:51)
[2018-12-24] MEDS: Proshield Plus GEL TOP SCH ×3 (01:30→17:59)
[2018-12-24 06:23] LABS: BASO % 0.3 % (0.0-2.0); EOS # 0.2 K/uL (0.0-0.7); EOS % 2.4 % (0.0-4.0); HEMOGLOBIN 11.8 g/dL (12.0-16.0); LYMPH % 51.6 % (20.0-40.0); MEAN CELL VOLUME 74.4 fl (81.0-99.0); MEAN CORPUSCULAR HEMOGLOBIN 23.4 pg (27.0-31.0); MEAN CORPUSCULAR HGB CONC 31.5 g/dL (33.0-37.0); MEAN PLATELET VOLUME 8.4 fl (7.2-11.7); MONO # 0.7 K/uL (0.0-0.8); MONO % 8.9 % (0.0-10.0); NEUT # 2.9 K/uL (1.8-7.0); NEUT % 36.8 % (50.0-75.0); NRBC % 0.2 % (0.0-0.0); RBC 5.04 Mil/uL (3.80-5.20); RED CELL DISTRIBUTION WIDTH 14.3 % (11.5-14.5); WHITE BLOOD COUNT 7.8 K/uL (4.8-10.8)
[2018-12-24] MEDS: Sodium Chloride 0.45% 1,000 ML IV SCH ×2 (06:48→17:59)
[2018-12-24 08:27] LABS: ALBUMIN 3.4 g/dL (3.5-5.0); ALT/SGPT 26 U/L (9-52); AST/SGOT 34 U/L (14-36); BLOOD UREA NITROGEN 9 mg/dl (7-17); CALCIUM 9.2 mg/dL (8.4-10.2); GFR NON-AFRICAN AMERICAN > 60; HDL CHOLESTEROL 36 MG/DL (30-70)
[2018-12-24 08:47] LABS: ALB/GLOB RATIO 1.1 (1.0-2.1)
[2018-12-24] MEDS: Hyoscyamine 0.125 mg SL Tab PO SCH (09:05)
[2018-12-24] MEDS: GlipiZIDE 10 mg SR Tab PO SCH (09:05)
[2018-12-24] MEDS: metOLazone 2.5 MG TAB PO SCH (09:06)
[2018-12-24 09:18] LABS: LDL CHOLESTEROL 111 mg/dL (0-129)
[2018-12-24] MEDS ORDERED: Potassium Chloride 20 mEq ER Tab PO ONE (11:03)
--- NOTE | 2018-12-24 14:53 | CP.PCM.PN ---
Subjective - Date & Time of Evaluation Date of Evaluation: 12/24/18 Time of Evaluation: 13:10 - Subjective Subjective: F/U AMS Pt minimal response to tactile stimuli. Objective - Vital Signs/Intake and Output Vital Signs (last 24 hours): Temp Pulse Resp BP Pulse Ox 97.8 F 61 20 115/69 100 12/24/18 12:40 12/24/18 12:40 12/24/18 12:40 12/24/18 12:40 12/24/18 12:40 Intake and Output: 12/24/18 12/24/18 06:59 18:59 Intake Total 1160 Output Total 900 Balance 260 - Medications Medications: Current Medications Albuterol/Ipratropium (Duoneb 3 Mg/0.5 Mg (3 Ml) Ud) 3 ml IH RQ8 PRN PRN Reason: Shortness of Breath Atorvastatin Calcium (Lipitor) 40 mg PO [facility] Last Admin: 12/22/18 22:00 Dose: Not Given Dimethicone (Proshield Plus Skin Protectant) 1 applic TOP Q8 [facility] Last Admin: 12/24/18 09:05 Dose: 1 applic Glipizide (Glucotrol Xl) 10 mg PO ACB [facility] Last Admin: 12/24/18 09:05 Dose: 10 mg Hyoscyamine (Levsin) 0.125 mg PO DAILY [facility] Last Admin: 12/24/18 09:05 Dose: Not Given Sodium Chloride (Sodium Chloride 0.45%) 1,000 mls @ 80 mls/hr IV .[id number] [facility] Stop: 12/24/18 16:28 Last Admin: 12/24/18 06:48 Dose: 80 mls/hr Insulin Detemir (Levemir) 8 units SC [facility] Last Admin: 12/23/18 21:51 Dose: 8 units Latanoprost (Xalatan Opht) 1 drop OU [facility] Last Admin: 12/23/18 21:51 Dose: 1 drop Memantine (Namenda) 10 mg PO Q12 [facility] Last Admin: 12/24/18 09:05 Dose: Not Given Metformin HCl (Glucophage) 1,000 mg PO DAILY [facility] Last Admin: 12/24/18 09:05 Dose: 1,000 mg Metolazone (Zaroxolyn) 2.5 mg PO MWF [facility] Last Admin: 12/24/18 09:06 Dose: Not Given Metoprolol Tartrate (Lopressor) 25 mg PO Q12 [facility] Last Admin: 12/24/18 09:06 Dose: 25 mg Mirtazapine (Remeron) 7.5 mg PO HS [facility] Last Admin: 12/22/18 22:00 Dose: Not Given Promethazine HCl/Dextromethorphan (Phenergan Dm Syrup) 5 ml PO Q6 PRN PRN Reason: Cough Quetiapine Fumarate (Seroquel) 50 mg PO QID [facility] Last Admin: 12/24/18 13:32 Dose: Not Given Sitagliptin Phosphate (Januvia) 100 mg PO DAILY [facility] Last Admin: 12/24/18 09:05 Dose: 100 mg - Labs Labs: 12/24/18 05:00 12/24/18 05:00 - Constitutional Appears: Chronically Ill - Head Exam Head Exam: NORMAL INSPECTION - Eye Exam Eye Exam: PERRL - ENT Exam ENT Exam: Normal Exam - Neck Exam Neck Exam: Normal Inspection - Respiratory Exam Respiratory Exam: Decreased Breath Sounds (at bases) - Cardiovascular Exam Cardiovascular Exam: REGULAR RHYTHM - GI/Abdominal Exam GI & Abdominal Exam: Soft, Normal Bowel Sounds - Extremities Exam Extremities Exam: Normal Inspection - Back Exam Back Exam: NORMAL INSPECTION - Neurological Exam Additional comments: Lethargic, minimal response to tactile stimuli - Skin Skin Exam: Warm Assessment and Plan (1) Altered mental status Status: Acute (2) Dehydration Status: Acute (3) Dementia Status: Chronic (4) Hyperglycemia Status: Chronic (5) Diabetes mellitus Status: Chronic (6) Lack of appetite Status: Acute (7) Constipated Status: Acute - Assessment and Plan (Free Text) Plan: Continue IV fluid and rest of Tx. F/U Brain MRI
[2018-12-24] MEDS: Insulin Detemir 100 Units/ml Inj SC SCH (22:23)
[2018-12-24] MEDS: Latanoprost 0.005% Opht SOUTION OU SCH (22:24)
[2018-12-25] MEDS: Proshield Plus GEL TOP SCH ×3 (02:01→16:42)
[2018-12-25 06:07] LABS: BLOOD UREA NITROGEN 7 mg/dl (7-17); CALCIUM 9.1 mg/dL (8.4-10.2); GFR NON-AFRICAN AMERICAN > 60
[2018-12-25] MEDS: Sodium Chloride 0.45% 1,000 ML IV SCH (09:26)
[2018-12-25] MEDS: Hyoscyamine 0.125 mg SL Tab PO SCH ×2 (09:33→10:35)
[2018-12-25] MEDS: GlipiZIDE 10 mg SR Tab PO SCH (10:35)
[2018-12-25] MEDS ORDERED: Potassium Chloride 20 mEq/15 ml LIQ UD PO ONE (11:50)
[2018-12-25] MEDS: Enoxaparin 40 mg Syringe SC SCH (12:58)
--- NOTE | 2018-12-25 15:25 | CP.PCM.PN ---
Subjective - Date & Time of Evaluation Date of Evaluation: 12/25/18 Time of Evaluation: 10:40 - Subjective Subjective: F/U AMS Eyes open, minimal response to tactile stimuli. Objective - Vital Signs/Intake and Output Vital Signs (last 24 hours): Temp Pulse Resp BP Pulse Ox 98.2 F 77 18 144/82 98 12/25/18 12:00 12/25/18 12:00 12/25/18 12:00 12/25/18 12:00 12/25/18 12:00 Intake and Output: 12/25/18 12/25/18 06:59 18:59 Intake Total 895 Output Total 1200 Balance -305 - Medications Medications: Current Medications Albuterol/Ipratropium (Duoneb 3 Mg/0.5 Mg (3 Ml) Ud) 3 ml IH RQ8 PRN PRN Reason: Shortness of Breath Atorvastatin Calcium (Lipitor) 40 mg PO HS [facility] Last Admin: 12/24/18 22:22 Dose: Not Given Dimethicone (Proshield Plus Skin Protectant) 1 applic TOP Q8 [facility] Last Admin: 12/25/18 09:26 Dose: 1 applic Enoxaparin Sodium (Lovenox) 40 mg SC DAILY [facility]; Protocol Last Admin: 12/25/18 12:58 Dose: 40 mg Glipizide (Glucotrol Xl) 10 mg PO ACB [facility] Last Admin: 12/25/18 10:35 Dose: 10 mg Hyoscyamine (Levsin) 0.125 mg PO DAILY [facility] Last Admin: 12/25/18 10:35 Dose: 0.125 mg Sodium Chloride (Sodium Chloride 0.45%) 1,000 mls @ 80 mls/hr IV .[id number] [facility] Stop: 12/25/18 17:35 Last Admin: 12/25/18 09:26 Dose: 80 mls/hr Insulin Detemir (Levemir) 8 units SC [facility] Last Admin: 12/24/18 22:23 Dose: 8 units Latanoprost (Xalatan Opht) 1 drop OU HS [facility] Last Admin: 12/24/18 22:24 Dose: 1 drop Memantine (Namenda) 10 mg PO Q12 [facility] Last Admin: 12/25/18 09:24 Dose: Not Given Metformin HCl (Glucophage) 1,000 mg PO DAILY [facility] Last Admin: 12/25/18 09:31 Dose: 1,000 mg Metolazone (Zaroxolyn) 2.5 mg PO MWF [facility] Last Admin: 12/24/18 09:06 Dose: Not Given Metoprolol Tartrate (Lopressor) 25 mg PO Q12 [facility] Last Admin: 12/25/18 09:31 Dose: 25 mg Mirtazapine (Remeron) 7.5 mg PO HS [facility] Last Admin: 12/24/18 22:24 Dose: Not Given Promethazine HCl/Dextromethorphan (Phenergan Dm Syrup) 5 ml PO Q6 PRN PRN Reason: Cough Quetiapine Fumarate (Seroquel) 50 mg PO QID [facility] Last Admin: 12/25/18 09:25 Dose: Not Given Sitagliptin Phosphate (Januvia) 100 mg PO DAILY [facility] Last Admin: 12/25/18 09:33 Dose: 100 mg - Labs Labs: 12/24/18 05:00 12/25/18 04:40 - Constitutional Appears: Chronically Ill - Head Exam Head Exam: NORMAL INSPECTION - Eye Exam Eye Exam: PERRL - ENT Exam ENT Exam: Normal Exam - Neck Exam Neck Exam: Normal Inspection - Respiratory Exam Respiratory Exam: Decreased Breath Sounds (at bases) - Cardiovascular Exam Cardiovascular Exam: REGULAR RHYTHM - GI/Abdominal Exam GI & Abdominal Exam: Soft, Normal Bowel Sounds - Exam Additional comments: Purewick Cath - Extremities Exam Extremities Exam: Normal Inspection - Neurological Exam Additional comments: Lethargic, minimal response to tactile stimuli, unable to follows commands. - Skin Skin Exam: Warm Assessment and Plan (1) Altered mental status Status: Acute (2) Dehydration Status: Acute (3) Dementia Status: Chronic (4) Hyperglycemia Status: Chronic (5) Diabetes mellitus Status: Chronic (6) Lack of appetite Status: Acute (7) Constipated Status: Acute - Assessment and Plan (Free Text) Plan: Continue Lovenox, Levsin, Lopressor, Aztreonam, Insulin and rest of Tx.
[2018-12-25] MEDS: Insulin Detemir 100 Units/ml Inj SC SCH (21:31)
[2018-12-25] MEDS: Latanoprost 0.005% Opht SOUTION OU SCH (21:32)
[2018-12-26] MEDS: Proshield Plus GEL TOP SCH ×3 (00:26→16:48)
[2018-12-26] MEDS: GlipiZIDE 10 mg SR Tab PO SCH (09:11)
[2018-12-26] MEDS: Hyoscyamine 0.125 mg SL Tab PO SCH (09:11)
[2018-12-26] MEDS: Enoxaparin 40 mg Syringe SC SCH (09:12)
[2018-12-26] MEDS: metOLazone 2.5 MG TAB PO SCH (09:13)
--- NOTE | 2018-12-26 11:27 | MRI ---
Date of service: 12/25/2018 PROCEDURE: MRI BRAIN WITHOUT CONTRAST HISTORY: AMS COMPARISON: Unenhanced head CT 12/19/2018. TECHNIQUE: Multiplanar, multisequence MR images of the brain were obtained without intravenous contrast enhancement. FINDINGS: HEMORRHAGE: None DWI: No evidence of an acute or early subacute infarction. BRAIN PARENCHYMA: Prominent diffuse cerebral atrophy chronic microangiopathy are reiterated throughout the cerebrum once again. No interval positive mass effect. No suspicious extra-axial collection identified. Posterior fossa contents are stable and unremarkable including the brainstem. Slight preference of chronic microangiopathy which affects bilateral frontal and temporal lobes more so than posterior cerebrum. VENTRICLES: Unremarkable. No hydrocephalus. CRANIUM: Unremarkable. ORBITS: Grossly unremarkable. PARANASAL SINUSES/MASTOIDS: Clear VASCULAR SYSTEM: Skull base flow voids intact. OTHER FINDINGS: None. IMPRESSION: No evidence of an acute or subacute brain infarction. No interval positive mass effect. Reiteration of diffuse cerebral atrophy and chronic microangiopathy is appreciated compared prior head CT 12/19/2018.
--- NOTE | 2018-12-26 14:01 | CP.PCM.DIS ---
Provider - Provider Date of Admission: 12/19/18 17:06 Attending physician: Marino Sosa MD Consults: 12/19/18 17:05 Physician Consult Stat Comment: Consulting Provider: Isatu Giles Consulting Physician: Isatu Giles Reason for Consult: sepsis suspected pneumonis 12/20/18 00:45 Neurology Consult Routine Comment: Consulting Provider: Skinny Cho Consulting Physician: Skinny Cho Reason for Consult: Hx seizure, seizure medication 12/20/18 01:10 Wound Care [Nursing Referral for Wound Care] Routine Comment: Physician Instructions: Reason For Exam: STAGE 2 SACRAL ULCER Diagnosis - Discharge Diagnosis (1) Altered mental status Status: Acute Priority: High (2) Dehydration Status: Acute Priority: High (3) Dementia Status: Chronic Priority: High (4) Hyperglycemia Status: Chronic Priority: High (5) Diabetes mellitus Status: Chronic Priority: High (6) Lack of appetite Status: Acute Priority: High (7) Constipated Status: Acute Priority: High Hospital Course - Lab Results Lab Results: Micro Results 12/19/18 15:40 Blood-Venous Blood Culture - Final NO GROWTH AFTER 5 DAYS 12/19/18 15:40 Blood-Venous Gram Stain - Final TEST NOT PERFORMED 12/20/18 01:20 Urine,Clean Catch Urine Culture - Final No Growth (<1,000 CFU/ML) Most Recent Lab Values WBC 7.8 K/uL (4.8-10.8) 12/24/18 05:00 RBC 5.04 Mil/uL (3.80-5.20) 12/24/18 05:00 Hgb 11.8 g/dL (12.0-16.0) L 12/24/18 05:00 Hct 37.5 % (34.0-47.0) 12/24/18 05:00 MCV 74.4 fl (81.0-99.0) L D 12/24/18 05:00 MCH 23.4 pg (27.0-31.0) L 12/24/18 05:00 MCHC 31.5 g/dL (33.0-37.0) L 12/24/18 05:00 RDW 14.3 % (11.5-14.5) 12/24/18 05:00 Plt Count 227 K/uL (130-400) 12/24/18 05:00 MPV 8.4 fl (7.2-11.7) 12/24/18 05:00 Neut % (Auto) 36.8 % (50.0-75.0) L 12/24/18 05:00 Lymph % (Auto) 51.6 % (20.0-40.0) H 12/24/18 05:00 [place] % (Auto) 8.9 % (0.0-10.0) 12/24/18 05:00 Eos % (Auto) 2.4 % (0.0-4.0) 12/24/18 05:00 Baso % (Auto) 0.3 % (0.0-2.0) 12/24/18 05:00 Neut # (Auto) 2.9 K/uL (1.8-7.0) 12/24/18 05:00 Lymph # (Auto) 4.0 K/uL (1.0-4.3) 12/24/18 05:00 [place] # (Auto) 0.7 K/uL (0.0-0.8) 12/24/18 05:00 Eos # (Auto) 0.2 K/uL (0.0-0.7) 12/24/18 05:00 Baso # (Auto) 0.0 K/uL (0.0-0.2) 12/24/18 05:00 pCO2 42 mm/Hg (35-45) 12/19/18 23:43 pO2 93 mm/Hg (80-100) 12/19/18 23:43 HCO3 25.1 mmol/L (21-28) 12/19/18 23:43 ABG pH 7.39 (7.35-7.45) 12/19/18 23:43 ABG Total CO2 26.7 mmol/L (22-28) 12/19/18 23:43 ABG O2 Saturation 98.9 % (95-98) H 12/19/18 23:43 ABG O2 Content 17.5 ML/dL (15-23) 12/19/18 23:43 ABG Base Excess 0.3 mmol/L (-2.0-3.0) 12/19/18 23:43 ABG Hemoglobin 12.9 g/dL (11.7-17.4) 12/19/18 23:43 ABG Carboxyhemoglobin 1.9 % (0.5-1.5) H 12/19/18 23:43 POC ABG HHb (Measured) 1.1 % (0.0-5.0) 12/19/18 23:43 ABG Methemoglobin 1.2 % (0.0-3.0) 12/19/18 23:43 ABG O2 Capacity 17.7 mL/dL (16-24) 12/19/18 23:43 Paco Test Yes 12/19/18 23:43 VBG pH 7.29 (7.32-7.43) L 12/19/18 20:20 VBG pCO2 69 mmHg (40-60) H* 12/19/18 20:20 VBG HCO3 26.0 mmol/L 12/19/18 20:20 VBG Total CO2 35.3 mmol/L (22-28) H 12/19/18 20:20 VBG O2 Sat (Calc) 12.6 % (40-65) L 12/19/18 20:20 VBG Base Excess 4.4 mmol/L (0.0-2.0) H 12/19/18 20:20 VBG Potassium 4.0 mmol/L (3.6-5.2) 12/19/18 20:20 A-a O2 Difference 4.0 mm/Hg 12/19/18: Hgb O2 Saturation 95.8 % (95.0-98.0) 12/19/18 23:43 Sodium 153.0 mmol/L (132-148) H 12/19/18 20:20 Chloride 114.0 mmol/L (98-107) H 12/19/18 20:20 Glucose 89 mg/dL (65-105) 12/19/18 20:20 Lactate 2.6 mmol/L (0.7-2.1) H 12/19/18 20:20 FiO2 21.0 % 12/19/18:43 Crit Value Called To Md darrly sanchez 12/19/18 20:20 Crit Value Called By 12/19/18 20:20 Crit Value Read Back Y 12/19/18 20:20 Blood Gas Notified Time 203412/19/18 20:20 Sodium 138 mmol/l (132-148) 12/25/18 04:40 Potassium 3.5 MMOL/L (3.6-5.0) L 12/25/18 04:40 Chloride 105 mmol/L (98-107) 12/25/18 04:40 Carbon Dioxide 26 mmol/L (22-30) 12/25/18 04:40 Anion Gap 11 (10-20) 12/25/18 04:40 BUN 7 mg/dl (7-17) 12/25/18 04:40 Creatinine 0.4 mg/dl (0.7-1.2) L 12/25/18 04:40 Est GFR ( Amer) > 60 12/25/18 04:40 Est GFR (Non-Af Amer) > 60 12/25/18 04:40 POC Glucose (mg/dL) 145 mg/dL (65-110) H 12/26/18 11:17 Random Glucose 138 mg/dL (65-105) H 12/25/18 04:40 Hemoglobin A1c 10.1 % (4.2-6.5) H 12/24/18 05:00 Calcium 9.1 mg/dL (8.4-10.2) 12/25/18 04:40 Magnesium 1.8 MG/DL (1.6-2.3) 12/24/18 05:00 Total Bilirubin 0.3 mg/dl (0.2-1.3) 12/24/18 05:00 AST 34 U/L (14-36) 12/24/18 05:00 ALT 26 U/L (9-52) 12/24/18 05:00 Alkaline Phosphatase 53 U/L (38-126) 12/24/18 05:00 Total Protein 6.4 G/DL (6.3-8.2) 12/24/18 05:00 Albumin 3.4 g/dL (3.5-5.0) L 12/24/18 05:00 Globulin 3.0 gm/dL (2.2-3.9) 12/24/18 05:00 Albumin/Globulin Ratio 1.1 (1.0-2.1) 12/24/18 05:00 Triglycerides 142 mg/DL (0-149) 12/24/18 05:00 Cholesterol 177 mg/dL (0-199) 12/24/18 05:00 LDL Cholesterol Direct 111 mg/dL (0-129) 12/24/18 05:00 HDL Cholesterol 36 MG/DL (30-70) 12/24/18 05:00 Procalcitonin < 0.05 NG/ML (0.19-0.49) L 12/19/18 17:58 Thyroxine (T4) 7.71 ug/dl (5.5-11.0) 12/24/18 05:00 TSH 3rd Generation 2.07 mIU/ML (0.46-4.68) 12/24/18 05:00 Venous Blood Potassium 4.0 mmol/L (3.6-5.2) 12/19/18 20:20 Urine Color Yellow (YELLOW) 12/20/18 01:20 Urine Clarity Slighty-cloudy (Clear) 12/20/18 01:20 Urine pH 5.0 (5.0-8.0) 12/20/18 01:20 Ur Specific [place] 1.043 (1.003-1.030) H 12/20/18 01:20 Urine Protein 30 mg/dL (NEGATIVE) 12/20/18 01:20 Urine Glucose (UA) >=500 mg/dL (NEGATIVE) 12/20/18 01:20 Urine Ketones 20 mg/dL (NEGATIVE) 12/20/18 01:20 Urine Blood Negative (NEGATIVE) 12/20/18 01:20 Urine Nitrate Negative (NEGATIVE) 12/20/18 01:20 Urine Bilirubin Negative (NEGATIVE) 12/20/18 01:20 Urine Urobilinogen 0.2-1.0 mg/dL (0.2-1.0) 12/20/18 01:20 Ur Leukocyte Esterase Neg Nayla/uL (Negative) 12/20/18 01:20 Urine RBC (Auto) 2 /hpf (0-3) 12/20/18 01:20 Urine Microscopic WBC 1 /hpf (0-5) 12/20/18 01:20 Ur Squamous Epith Cells 1 /hpf (0-5) 12/20/18 01:20 Valproic Acid < 10.0 ug/mL (50.0-100.0) L 12/20/18 13:58 Discharge Exam - Head Exam Head Exam: NORMAL INSPECTION Discharge Plan - Follow Up Plan Condition: FAIR Disposition: HOME/ ROUTINE
--- NOTE | 2018-12-26 14:32 | CT ---
Date of service: 12/26/2018 PROCEDURE: CT MAXILLOFACIAL BONES WITHOUT CONTRAST HISTORY: Left facial swelling COMPARISON: Correlation made with CT scan and MRI of the brain dated 2018 and 12/25/2018 respectively. TECHNIQUE: Contiguous axial CT images of the maxillofacial bones-orbits were obtained. Coronal and sagittal reformats were generated. Radiation dose: Total exam DLP = 869.41 mGy-cm. This CT exam was performed using one or more of the following dose reduction techniques: Automated exposure control, adjustment of the mA and/or kV according to patient size, and/or use of iterative reconstruction technique. FINDINGS: NASAL BONES: Nasal bones intact. ORBITS: Orbits and contents unremarkable. Globes intact and lenses appropriately located. There are no retrobulbar hemorrhages or collections. Optic nerves and extraocular musculature unremarkable. PARANASAL SINUSES/ MASTOIDS: The visualized paranasal sinuses unchanged. Frontal sinuses remain moderate to fairly significantly hypoplastic in appearance. The remaining visualized paranasal sinuses well-developed and currently well-aerated. No fluid levels seen to suggest acute sinusitis. Minor mucosal thickening inferomedial aspect left maxillary antrum. MAXILLA: There appears to be some minimal infiltration changes in the subcutaneous tissues of the left cheek anterior to the upper masseter muscle and just inferior to the left zygomatic arch. Findings are nonspecific though could represent mild inflammatory process-early cellulitis. No drainable fluid or abscess collections are identified MANDIBLE/ TEMPOROMANDIBULAR JOINTS: Unremarkable. SKULL BASE: Unremarkable. TEMPORAL BONES: The mastoid air complexes and middle ear canals unremarkable OTHER FINDINGS: None. IMPRESSION: Vague infiltration changes seen in the subcutaneous tissues left cheek anterior to the superior margin of the left masseter muscle and just inferior to the left zygomatic arch. Findings could represent a minimal inflammatory process or early cellulitis. No drainable fluid or abscess collections are identified.
--- NOTE | 2018-12-26 17:03 | CP.PCM.CON ---
History of Present Illness - History of Present Illness History of Present Illness: Brought by EMS, daughter states pt has had poor PO intake x 3 days and no BM x 5 days. .Pt has h/o dementia and is unable to provide hx. referred for ID eval of cellulitis of face CT facial bones + facial cellulitis - Medical History PMH: Alzheimer's Disease, Arthritis, Dementia, Diabetes, HTN, Hypercholesterolemia, Schizophrenia Denies: Hepatitis, HIV, Chronic Kidney Disease, Seizures, Sexually Transmitted Disease Review of Systems - Review of Systems Systems not reviewed;Unavailable: Altered Mental Status All systems: reviewed and no additional remarkable complaints except - Constitutional Constitutional: As Per HPI - EENT Eyes: absent: As Per HPI, Blind Spots, Blurred Vision, Change in Vision, Decreased Night Vision, Diplopia, Discharge, Dry Eye, Exophthalmos, Floaters, Irritation, Itchy Eyes, Loss of Peripheral Vision, Pain, Photophobia, Requires Corrective Lenses, Sees Flashes, Spots in Vision, Tunnel Vision, Other Visual Disturbances, Loss of Vision, Other Ears: absent: As Per HPI, Decreased Hearing, Ear Discharge, Ear Pain, Tinnitus, Abnormal Hearing, Disequilibrium, Dizziness, Other - Breasts Breasts: absent: As Per HPI, Change in Shape, Mass, Pain, Nipple Discharge, Nipple Inversion, Skin Changes, Swelling, Other - Cardiovascular Cardiovascular: absent: As Per HPI, Acrocyanosis, Chest Pain, Chest Pain at Rest, Chest Pain with Activity, Claudication, Diaphoresis, Dyspnea, Dyspnea on Exertion, Edema, Irregular Heart Rhythm, Pain Radiating to Arm/Neck/Jaw, Leg Edema, Leg Ulcers, Lightheadedness, Orthopnea, Palpitations, Paroxysmal Nocturnal Dyspnea, Pedal Edema, Radiating Pain, Rapid Heart Rate, Slow Heart Rate, Syncope, Other - Respiratory Respiratory: absent: As Per HPI, Cough, Dyspnea, Hemoptysis, Dyspnea on Exertion, Wheezing, Snoring, Stridor, Pain on Inspiration, Chest Congestion, Excessive Mucous Production, Change in Mucous Color, Pain with Coughing, Other - Gastrointestinal Gastrointestinal: absent: As Per HPI, Abdominal Pain, Belching, Bloating, Change in Bowel Habits, Change in Stool Character, Coffee Ground Emesis, Constipation, Cramping, Diarrhea, Dyspepsia, Dysphagia, Early Satiety, Excessive Flatus, Fecal Incontinence, Heartburn, Hematemesis, Hematochezia, Loose Stools, Melena, N ausea, Odynophagia, Temesmus, Vomiting, Other - Genitourinary Genitourinary: absent: As Per HPI, Change in Urinary Stream, Difficulty Urinating, Dysuria, Flank Pain, Hematuria, Pyuria, Nocturia, Urinary Incontinence, Urinary Frequency, Urinary Hesitance, Urinary Urgency, Voiding Freq/Small Amts, Freq UTI, Hx Renal/Bladder Calculi, Hx /Renal Surgery, Bladder Distension, Other - Reproductive: Female Reproductive:Female: absent: As Per HPI, Amenorrhea, Amenorrhea/ Control, Currently Menstual, Cycle <21 Days, Cycle >35 Days, Cycle Variable, Menses 1-7 Days, Menses >/= 8 Days, Menses Variable, Cycle > 4 Weeks Between, No Menses for 6 Months, Heavy Menses, Light Menses, Normal Menses, Spotting Between Cycles, S/ P Hysterectomy, Menopausal, Post Menopausal, Premenarche, Abnormal Vaginal Bleeding, Dysmenorrhea, Dyspareunia, Genital Lesions, Genital Pruritis, Pelvic Pain, Prolapse Symptoms, Sexual Dysfunction, Vaginal Discharge, Vaginal Dryness, Vaginal Odor, Vaginal Pruritis, Other - Menstruation Menstruation: absent: As Per HPI, Amenorrhea, Amenorrhea/ Control, C urrently Menstual, Cycle <21 Days, Cycle >35 Days, Cycle Variable, Menses 1-7 Days, Menses >/= 8 Days, Menses Variable, Cycle > 4 Weeks Between, No Menses for 6 Months, Heavy Menses, Light Menses, Normal Menses, Spotting Between Cycles, S/P Hysterectomy, Menopausal, Post Menopausal, Premenarche, Abnormal Vaginal Bleeding, Dysmenorrhea, Other - Musculoskeletal Musculoskeletal: As Per HPI - Integumentary Integumentary: As Per HPI, Skin Pain - Neurological Neurological: absent: As Per HPI, Abnormal Gait, Abnormal Hearing, Abnormal Movements, Abnormal Speech, Behavioral Changes, Burning Sensations, Confusion, Convulsions, Disequilibrium, Dizziness, Numbness, Focal Weakness, Frequent Falls, Headaches, Lack of Coordination, Loss of Vision, Memory Loss, Paresthesias, Radicular Pain, Restless Legs, Sensory Deficit, Syncope, Tingling, Tremor, Vertigo, Weakness, Other Visual Disturbances, Other - Psychiatric Psychiatric: absent: As Per HPI, Abnormal Sleep Pattern, Anhedonia, Anxiety, Auditory Hallucinations, Behavioral Changes, Change in Appetite, Change in Libido, Confusion, Depression, Difficulty Concentrating, Hallucinations, Homicid al Ideation, Hopelessness, Irritability, Memory Loss, Mood Swings, Panic Attacks, Paranoia, Suicidal Ideation, Visual Hallucinations, Tactile Hallucinations, Other - Endocrine Endocrine: absent: As Per HPI, Change in Body Appearance, Change in Libido, Cold Intolorance, Deepening of Voice, Excessive Sweating, Fatigue, Flushing, Heat Intolorance, Increase in Ring/Shoe/Hat Size, Palpitations, Polydipsia, Polyphagia, Polyuria, Other - Hematologic/Lymphatic Hematologic: absent: As Per HPI, Easy Bleeding, Easy Bruising, Lymphadenopathy, Other Past Patient History - Infectious Disease Hx of Infectious Diseases: None - Tetanus Immunizations Tetanus Immunization: Unknown - Past Medical History & Family History Past Medical History?: Yes - Past Social History Smoking Status: Never Smoked Alcohol: None Drugs: Denies Home Situation {Lives}: With Family - CARDIAC Hx Cardiac Disorders: Yes Hx Hypercholesterolemia: Yes Hx Hypertension: Yes - PULMONARY Hx Respiratory Disorders: Yes Hx Pneumonia: Yes Hx Tuberculosis: No - NEUROLOGICAL Hx Neurological Disorder: Yes Hx Alzheimer's Disease: Yes Hx Dementia: Yes Other/Comment: seizure 2 yrs ago??? - HEENT Hx HEENT Problems: Yes Hx Cataracts: Yes Hx Glaucoma: Yes - RENAL Hx Chronic Kidney Disease: No - ENDOCRINE/METABOLIC Hx Endocrine Disorders: Yes Hx Diabetes Mellitus Type 2: Yes - HEMATOLOGICAL/ONCOLOGICAL Hx Blood Disorders: No Hx Human Immunodeficiency Virus (HIV): No - INTEGUMENTARY Hx Dermatological Problems: No - MUSCULOSKELETAL/RHEUMATOLOGICAL Hx Musculoskeletal Disorders: Yes Hx Arthritis: Yes Hx Falls: No - GASTROINTESTINAL Hx Gastrointestinal Disorders: Yes Hx Hemorrhoids: Yes - GENITOURINARY/GYNECOLOGICAL Hx Genitourinary Disorders: Yes Hx Incontinence: Yes Hx Sexually Transmitted Disorders: No - PSYCHIATRIC Hx Psychophysiologic Disorder: Yes Hx Schizophrenia: Yes - SURGICAL HISTORY Hx Surgeries: Yes Hx Section: Yes - ANESTHESIA Hx Anesthesia: Yes Hx Anesthesia Reactions: No Meds Allergies/Adverse Reactions: Allergies Allergy/AdvReac Type Severity Reaction Status Date / Time Penicillins Allergy RASH Verified 12/19/18 15:06 - Medications Medications: Current Medications Albuterol/Ipratropium (Duoneb 3 Mg/0.5 Mg (3 Ml) Ud) 3 ml IH RQ8 PRN PRN Reason: Shortness of Breath Atorvastatin Calcium (Lipitor) 40 mg PO HS [facility] Last Admin: 12/25/18 21:31 Dose: Not Given Dimethicone (Proshield Plus Skin Protectant) 1 applic TOP Q8 [facility] Last Admin: 12/26/18 16:48 Dose: 1 applic Enoxaparin Sodium (Lovenox) 40 mg SC DAILY [facility]; Protocol Last Admin: 12/26/18 09:12 Dose: 40 mg Glipizide (Glucotrol Xl) 10 mg PO ACB [facility] Last Admin: 12/26/18 09:11 Dose: 10 mg Hyoscyamine (Levsin) 0.125 mg PO DAILY [facility] Last Admin: 12/26/18 09:11 Dose: 0.125 mg Aztreonam 1 gm/ Sodium (Chloride) 100 mls @ 100 mls/hr IVPB Q12 [facility]; Protocol Insulin Detemir (Levemir) 8 units SC [facility] Last Admin: 12/25/18 21:31 Dose: 8 units Latanoprost (Xalatan Opht) 1 drop OU [facility] Last Admin: 12/25/18 21:32 Dose: 1 drop Memantine (Namenda) 10 mg PO Q12 [facility] Last Admin: 12/26/18 09:12 Dose: Not Given Metformin HCl (Glucophage) 1,000 mg PO DAILY [facility] Last Admin: 12/26/18 09:09 Dose: 1,000 mg Metolazone (Zaroxolyn) 2.5 mg PO MWF [facility] Last Admin: 12/26/18 09:13 Dose: Not Given Metoprolol Tartrate (Lopressor) 25 mg PO Q12 [facility] Last Admin: 12/26/18 09:11 Dose: Not Given Mirtazapine (Remeron) 7.5 mg PO [facility] Last Admin: 12/25/18 21:32 Dose: Not Given Promethazine HCl/Dextromethorphan (Phenergan Dm Syrup) 5 ml PO Q6 PRN PRN Reason: Cough Quetiapine Fumarate (Seroquel) 50 mg PO QID [facility] Last Admin: 12/26/18 16:49 Dose: Not Given Sitagliptin Phosphate (Januvia) 100 mg PO DAILY [facility] Last Admin: 12/26/18 09:10 Dose: 100 mg Physical Exam - Constitutional Appears: Non-toxic, Confused, Cachectic, Chronically Ill - Head Exam Head Exam: NORMOCEPHALIC Additional comments: facial swelling / redness mild - Eye Exam Eye Exam: absent: Scleral icterus Pupil Exam: NORMAL ACCOMODATION - ENT Exam ENT Exam: Mucous Membranes Dry - Neck Exam Neck exam: Negative for: Lymphadenopathy - Respiratory Exam Respiratory Exam: Decreased Breath Sounds - Cardiovascular Exam Cardiovascular Exam: REGULAR RHYTHM - GI/Abdominal Exam GI & Abdominal Exam: Diminished Bowel Sounds, Soft. absent: Tenderness - Rectal Exam Rectal Exam: Deferred - Exam Exam: NORMAL INSPECTION - Extremities Exam Extremities exam: Positive for: pedal pulses present. Negative for: calf t enderness, pedal edema Additional comments: contracted - Back Exam Back exam: absent: CVA tenderness (L), CVA tenderness (R) - Neurological Exam Neurological exam: Alert, Altered, CN II-XII Intact - Psychiatric Exam Psychiatric exam: Depressed - Skin Skin Exam: Dry, Intact Results - Vital Signs Recent Vital Signs: Last Vital Signs Temp 98.1 F 12/26/18 15:45 Pulse 73 12/26/18 15:45 Resp 18 12/26/18 15:45 BP 125/83 12/26/18 15:45 Pulse Ox 99 12/26/18 15:45 - Labs Result Diagrams: 12/24/18 05:00 12/25/18 04:40 Labs: Laboratory Results - last 24 hr 12/25/18 12/26/18 12/26/18 21:27 05:26 11:17 POC Glucose (mg/dL) 141 H 133 H 145 H 12/26/18 15:41 POC Glucose (mg/dL) 136 H Assessment & Plan (1) Altered mental status Status: Acute Priority: High (2) Sepsis Status: Acute (3) Diabetes mellitus Status: Chronic Priority: High - Assessment and Plan (Free Text) Assessment: add vanco for cellulitis prognosis guarded
[2018-12-26] MEDS: Aztreonam 1 GM in Sodium Chloride 0.9% 100 ML IVPB SCH (21:48)
[2018-12-26] MEDS: Latanoprost 0.005% Opht SOUTION OU SCH (21:49)
[2018-12-26] MEDS: Insulin Detemir 100 Units/ml Inj SC SCH (21:59)
[2018-12-27] MEDS: Proshield Plus GEL TOP SCH ×3 (01:46→17:51)
[2018-12-27] MEDS: GlipiZIDE 10 mg SR Tab PO SCH (09:32)
[2018-12-27] MEDS: Hyoscyamine 0.125 mg SL Tab PO SCH (09:33)
[2018-12-27] MEDS: Enoxaparin 40 mg Syringe SC SCH (09:35)
[2018-12-27] MEDS: Aztreonam 1 GM in Sodium Chloride 0.9% 100 ML IVPB SCH ×2 (09:42→21:27)
--- NOTE | 2018-12-27 09:43 | CP.PCM.PCO ---
Assessment & Plan - Assessment and Plan (Free Text) Assessment: 73 yr. old F with Facial cellulitis patient will require minimum of 7 days of Azactam 1gm iv q12 and Vancomycin 1gm iv q12 cont. to monitor vanco trough, labs
--- NOTE | 2018-12-27 09:57 | CP.PCM.PN ---
Subjective - Date & Time of Evaluation Date of Evaluation: 12/26/18 Time of Evaluation: 09:20 - Subjective Subjective: THIS PROGRESS NOTE IS FOR YESTERDAY 12/26/18, DISCHARGE SUMMARY WAS CANCELLED. F/U AMS. L facial pain and swelling noticed today. Objective - Vital Signs/Intake and Output Vital Signs (last 24 hours): Temp Pulse Resp BP Pulse Ox 97.8 F 67 18 102/64 98 12/27/18 08:18 12/27/18 09:34 12/27/18 08:18 12/27/18 09:34 12/27/18 08:18 - Medications Medications: Current Medications Albuterol/Ipratropium (Duoneb 3 Mg/0.5 Mg (3 Ml) Ud) 3 ml IH RQ8 PRN PRN Reason: Shortness of Breath Atorvastatin Calcium (Lipitor) 40 mg PO HS [facility] Last Admin: 12/26/18 21:51 Dose: Not Given Dimethicone (Proshield Plus Skin Protectant) 1 applic TOP Q8 [facility] Last Admin: 12/27/18 09:36 Dose: 1 applic Enoxaparin Sodium (Lovenox) 40 mg SC DAILY [facility]; Protocol Last Admin: 12/27/18 09:35 Dose: 40 mg Glipizide (Glucotrol Xl) 10 mg PO ACB [facility] Last Admin: 12/27/18 09:32 Dose: 10 mg Hyoscyamine (Levsin) 0.125 mg PO DAILY [facility] Last Admin: 12/27/18 09:33 Dose: 0.125 mg Aztreonam 1 gm/ Sodium (Chloride) 100 mls @ 100 mls/hr IVPB Q12 [facility]; Protocol Last Admin: 12/27/18 09:42 Dose: 100 mls/hr Vancomycin HCl 500 mg/ Sodium (Chloride) 100 mls @ 100 mls/hr IVPB Q12H [facility]; Protocol Insulin Detemir (Levemir) 8 units SC HS [facility] Last Admin: 12/26/18 21:59 Dose: 8 units Latanoprost (Xalatan Opht) 1 drop OU HS [facility] Last Admin: 12/26/18 21:49 Dose: 1 drop Memantine (Namenda) 10 mg PO Q12 [facility] Last Admin: 12/27/18 09:36 Dose: Not Given Metformin HCl (Glucophage) 1,000 mg PO DAILY [facility] Last Admin: 12/27/18 09:32 Dose: 1,000 mg Metolazone (Zaroxolyn) 2.5 mg PO MWF [facility] Last Admin: 12/26/18 09:13 Dose: Not Given Metoprolol Tartrate (Lopressor) 25 mg PO Q12 [facility] Last Admin: 12/27/18 09:34 Dose: 25 mg Mirtazapine (Remeron) 7.5 mg PO HS [facility] Last Admin: 12/26/18 21:58 Dose: Not Given Nystatin (Nystop Topical Powder) 1 applic TOP TID [facility] Promethazine HCl/Dextromethorphan (Phenergan Dm Syrup) 5 ml PO Q6 PRN PRN Reason: Cough Quetiapine Fumarate (Seroquel) 50 mg PO QID [facility] Last Admin: 12/27/18 09:37 Dose: Not Given Sitagliptin Phosphate (Januvia) 100 mg PO DAILY [facility] Last Admin: 12/27/18 09:32 Dose: 100 mg - Labs Labs: 12/24/18 05:00 12/25/18 04:40 - Constitutional Appears: Chronically Ill - Head Exam Additional comments: L mild facial swelling with mild tenderness L facial and left upper gum. - Eye Exam Eye Exam: PERRL - ENT Exam ENT Exam: Normal Exam - Neck Exam Neck Exam: Normal Inspection - Respiratory Exam Respiratory Exam: Decreased Breath Sounds (at bases) - Cardiovascular Exam Cardiovascular Exam: REGULAR RHYTHM - GI/Abdominal Exam GI & Abdominal Exam: Soft, Normal Bowel Sounds - Extremities Exam Extremities Exam: Normal Inspection - Neurological Exam Neurological Exam: Awake Additional comments: Eyes open, minimal response to tactile stimuli. - Psychiatric Exam Additional comments: Calm - Skin Skin Exam: Warm Assessment and Plan (1) Altered mental status Status: Acute (2) Dehydration Status: Acute (3) Dementia Status: Chronic (4) Hyperglycemia Status: Chronic (5) Diabetes mellitus Status: Chronic (6) Lack of appetite Status: Acute (7) Constipated Status: Acute - Assessment and Plan (Free Text) Plan: Discharge cancelled, CT facial bones, Vanco IV, Aztreomam IV, f/u ID consult, continue rest of Tx.
[2018-12-27 14:51] LABS: INR 1.1; PROTHROMBIN TIME 12.5 Seconds (9.8-13.1)
[2018-12-27] MEDS: Insulin Lispro (humaLOG) 100 Units/ml Inj SC SCH ×3 (14:57→21:49)
[2018-12-27 15:16] LABS: BLOOD UREA NITROGEN 7 mg/dl (7-17); CALCIUM 9.2 mg/dL (8.4-10.2); GFR NON-AFRICAN AMERICAN > 60
--- NOTE | 2018-12-27 16:24 | CP.PCM.PN ---
Subjective - Date & Time of Evaluation Date of Evaluation: 12/27/18 Time of Evaluation: 06:00 - Subjective Subjective: refusing MULUGETA cont iv rx min 7 days ( possibly longer ) Objective - Vital Signs/Intake and Output Vital Signs (last 24 hours): Temp Pulse Resp BP Pulse Ox 98.3 F 79 20 107/62 97 12/27/18 16:02 12/27/18 16:02 12/27/18 16:02 12/27/18 16:02 12/27/18 16:02 - Medications Medications: Current Medications Albuterol/Ipratropium (Duoneb 3 Mg/0.5 Mg (3 Ml) Ud) 3 ml IH RQ8 PRN PRN Reason: Shortness of Breath Atorvastatin Calcium (Lipitor) 40 mg PO HS [facility] Last Admin: 12/26/18 21:51 Dose: Not Given Dimethicone (Proshield Plus Skin Protectant) 1 applic TOP Q8 [facility] Last Admin: 12/27/18 09:36 Dose: 1 applic Enoxaparin Sodium (Lovenox) 40 mg SC DAILY [facility]; Protocol Last Admin: 12/27/18 09:35 Dose: 40 mg Glipizide (Glucotrol Xl) 10 mg PO ACB [facility] Last Admin: 12/27/18 09:32 Dose: 10 mg Hyoscyamine (Levsin) 0.125 mg PO DAILY [facility] Last Admin: 12/27/18 09:33 Dose: 0.125 mg Aztreonam 1 gm/ Sodium (Chloride) 100 mls @ 100 mls/hr IVPB Q12 [facility]; Protocol Last Admin: 12/27/18 09:42 Dose: 100 mls/hr Vancomycin HCl 500 mg/ Sodium (Chloride) 100 mls @ 100 mls/hr IVPB Q12@1100,2300 [facility]; Protocol Insulin Detemir (Levemir) 8 units SC HS [facility] Last Admin: 12/26/18 21:59 Dose: 8 units Insulin Human Lispro (Humalog) 0 units SC ACHS [facility]; Protocol Last Admin: 12/27/18 14:57 Dose: 4 units Latanoprost (Xalatan Opht) 1 drop OU HS [facility] Last Admin: 12/26/18 21:49 Dose: 1 drop Memantine (Namenda) 10 mg PO Q12 [facility] Last Admin: 12/27/18 09:36 Dose: Not Given Metformin HCl (Glucophage) 1,000 mg PO DAILY [facility] Last Admin: 12/27/18 09:32 Dose: 1,000 mg Metolazone (Zaroxolyn) 2.5 mg PO MWF [facility] Last Admin: 12/26/18 09:13 Dose: Not Given Metoprolol Tartrate (Lopressor) 25 mg PO Q12 [facility] Last Admin: 12/27/18 09:34 Dose: 25 mg Mirtazapine (Remeron) 7.5 mg PO HS [facility] Last Admin: 12/26/18 21:58 Dose: Not Given Nystatin (Nystop Topical Powder) 1 applic TOP TID [facility] Last Admin: 12/27/18 15:02 Dose: 1 applic Promethazine HCl/Dextromethorphan (Phenergan Dm Syrup) 5 ml PO Q6 PRN PRN Reason: Cough Quetiapine Fumarate (Seroquel) 50 mg PO QID [facility] Last Admin: 12/27/18 15:02 Dose: Not Given Sitagliptin Phosphate (Januvia) 100 mg PO DAILY [facility] Last Admin: 12/27/18 09:32 Dose: 100 mg - Labs Labs: 12/24/18 05:00 12/27/18 14:07 PT 12.5 Seconds (9.8-13.1) 12/27/18 14:07 INR 1.1 12/27/18 14:07 - Constitutional Appears: Confused, Cachectic, Chronically Ill - Head Exam Head Exam: NORMOCEPHALIC - Eye Exam Eye Exam: EOMI, Normal appearance, PERRL Pupil Exam: NORMAL ACCOMODATION, PERRL - ENT Exam ENT Exam: Mucous Membranes Moist, Normal Exam - Neck Exam Neck Exam: Full ROM, Normal Inspection. absent: Lymphadenopathy - Respiratory Exam Respiratory Exam: Clear to Ausculation Bilateral, NORMAL BREATHING PATTERN - Cardiovascular Exam Cardiovascular Exam: REGULAR RHYTHM, +S1, +S2. absent: Murmur - GI/Abdominal Exam GI & Abdominal Exam: Soft, Normal Bowel Sounds. absent: Tenderness - Rectal Exam Rectal Exam: Deferred - Exam Exam: NORMAL INSPECTION - Extremities Exam Extremities Exam: Full ROM, Normal Capillary Refill, Normal Inspection. absent: Joint Swelling, Pedal Edema - Back Exam Back Exam: NORMAL INSPECTION - Neurological Exam Neurological Exam: Altered, CN II-XII Intact. absent: Alert, Awake, Normal Ga it, Oriented x3 - Psychiatric Exam Psychiatric exam: Depressed, Normal Affect, Normal Mood - Skin Skin Exam: Dry, Intact, Normal Color, Warm Assessment and Plan (1) Altered mental status Status: Acute (2) Sepsis Status: Acute (3) Diabetes mellitus Status: Chronic - Assessment and Plan (Free Text) Assessment: cont supportive rx
--- NOTE | 2018-12-27 17:42 | CP.PCM.PN ---
Subjective - Date & Time of Evaluation Date of Evaluation: 12/27/18 Time of Evaluation: 11:20 - Subjective Subjective: F/U Facial cellulites. AMS Pt awake, eyes ope, minimal response to tactile stimuli, daughter at bedside, Pt eating puree diet and thicken fluid in small amount. Objective - Vital Signs/Intake and Output Vital Signs (last 24 hours): Temp Pulse Resp BP Pulse Ox 98.3 F 79 20 107/62 97 12/27/18 16:02 12/27/18 16:02 12/27/18 16:02 12/27/18 16:02 12/27/18 16:02 - Medications Medications: Current Medications Albuterol/Ipratropium (Duoneb 3 Mg/0.5 Mg (3 Ml) Ud) 3 ml IH RQ8 PRN PRN Reason: Shortness of Breath Atorvastatin Calcium (Lipitor) 40 mg PO HS [facility] Last Admin: 12/26/18 21:51 Dose: Not Given Dimethicone (Proshield Plus Skin Protectant) 1 applic TOP Q8 [facility] Last Admin: 12/27/18 09:36 Dose: 1 applic Enoxaparin Sodium (Lovenox) 40 mg SC DAILY [facility]; Protocol Last Admin: 12/27/18 09:35 Dose: 40 mg Glipizide (Glucotrol Xl) 10 mg PO ACB [facility] Last Admin: 12/27/18 09:32 Dose: 10 mg Hyoscyamine (Levsin) 0.125 mg PO DAILY [facility] Last Admin: 12/27/18 09:33 Dose: 0.125 mg Aztreonam 1 gm/ Sodium (Chloride) 100 mls @ 100 mls/hr IVPB Q12 [facility]; Protocol Last Admin: 12/27/18 09:42 Dose: 100 mls/hr Vancomycin HCl 500 mg/ Sodium (Chloride) 100 mls @ 100 mls/hr IVPB Q12@1100,2300 [facility]; Protocol Insulin Detemir (Levemir) 8 units SC HS [facility] Last Admin: 12/26/18 21:59 Dose: 8 units Insulin Human Lispro (Humalog) 0 units SC ACHS [facility]; Protocol Last Admin: 12/27/18 14:57 Dose: 4 units Latanoprost (Xalatan Opht) 1 drop OU HS [facility] Last Admin: 12/26/18 21:49 Dose: 1 drop Memantine (Namenda) 10 mg PO Q12 [facility] Last Admin: 12/27/18 09:36 Dose: Not Given Metformin HCl (Glucophage) 1,000 mg PO DAILY [facility] Last Admin: 12/27/18 09:32 Dose: 1,000 mg Metolazone (Zaroxolyn) 2.5 mg PO MWF [facility] Last Admin: 12/26/18 09:13 Dose: Not Given Metoprolol Tartrate (Lopressor) 25 mg PO Q12 [facility] Last Admin: 12/27/18 09:34 Dose: 25 mg Mirtazapine (Remeron) 7.5 mg PO HS [facility] Last Admin: 12/26/18 21:58 Dose: Not Given Nystatin (Nystop Topical Powder) 1 applic TOP TID [facility] Last Admin: 12/27/18 15:02 Dose: 1 applic Promethazine HCl/Dextromethorphan (Phenergan Dm Syrup) 5 ml PO Q6 PRN PRN Reason: Cough Quetiapine Fumarate (Seroquel) 50 mg PO QID [facility] Last Admin: 12/27/18 15:02 Dose: Not Given Sitagliptin Phosphate (Januvia) 100 mg PO DAILY [facility] Last Admin: 12/27/18 09:32 Dose: 100 mg - Labs Labs: 12/24/18 05:00 12/27/18 14:07 PT 12.5 Seconds (9.8-13.1) 12/27/18 14:07 INR 1.1 12/27/18 14:07 - Constitutional Appears: Chronically Ill - Head Exam Additional comments: Mild swelling L face with mild tenderness on palpation - Eye Exam Eye Exam: PERRL - ENT Exam ENT Exam: Normal Exam - Neck Exam Neck Exam: Normal Inspection - Respiratory Exam Respiratory Exam: Decreased Breath Sounds (at bases) - Cardiovascular Exam Cardiovascular Exam: REGULAR RHYTHM - GI/Abdominal Exam GI & Abdominal Exam: Soft, Normal Bowel Sounds - Extremities Exam Extremities Exam: Normal Inspection - Back Exam Back Exam: NORMAL INSPECTION - Neurological Exam Neurological Exam: Awake Additional comments: Eyes open, minimal response to tactile stimuli. - Psychiatric Exam Additional comments: Calm - Skin Skin Exam: Warm Assessment and Plan (1) Facial cellulitis Status: Acute (2) Altered mental status Status: Acute (3) Dehydration Status: Acute (4) Dementia Status: Chronic (5) Hyperglycemia Status: Chronic (6) Diabetes mellitus Status: Chronic (7) Lack of appetite Status: Acute (8) Constipated Status: Acute - Assessment and Plan (Free Text) Plan: Continue Aztronam, Vanco, Lovenox, Lopressor and rest of Tx.
[2018-12-27] MEDS: Insulin Detemir 100 Units/ml Inj SC SCH (21:48)
[2018-12-27] MEDS: Latanoprost 0.005% Opht SOUTION OU SCH (21:48)
[2018-12-28] MEDS: Proshield Plus GEL TOP SCH ×3 (00:42→17:45)
[2018-12-28] MEDS: Insulin Lispro (humaLOG) 100 Units/ml Inj SC SCH ×4 (06:46→22:01)
[2018-12-28] MEDS: GlipiZIDE 10 mg SR Tab PO SCH (08:20)
[2018-12-28] MEDS: Aztreonam 1 GM in Sodium Chloride 0.9% 100 ML IVPB SCH ×2 (09:36→21:16)
[2018-12-28] MEDS: Enoxaparin 40 mg Syringe SC SCH (09:39)
[2018-12-28] MEDS: Hyoscyamine 0.125 mg SL Tab PO SCH (09:43)
--- NOTE | 2018-12-28 12:36 | CP.PCM.PN ---
Subjective - Date & Time of Evaluation Date of Evaluation: 12/28/18 Time of Evaluation: 07:00 - Subjective Subjective: afeb confused less swelling no fever Objective - Vital Signs/Intake and Output Vital Signs (last 24 hours): Temp Pulse Resp BP Pulse Ox 98.1 F 71 20 143/74 99 12/28/18 07:59 12/28/18 07:59 12/28/18 07:59 12/28/18 07:59 12/28/18 07:59 Intake and Output: 12/28/18 12/28/18 06:59 18:59 Intake Total 1600 Balance 1600 - Medications Medications: Current Medications Albuterol/Ipratropium (Duoneb 3 Mg/0.5 Mg (3 Ml) Ud) 3 ml IH RQ8 PRN PRN Reason: Shortness of Breath Atorvastatin Calcium (Lipitor) 40 mg PO HS [facility] Last Admin: 12/27/18 21:50 Dose: Not Given Dimethicone (Proshield Plus Skin Protectant) 1 applic TOP Q8 [facility] Last Admin: 12/28/18 09:54 Dose: 1 applic Enoxaparin Sodium (Lovenox) 40 mg SC DAILY [facility]; Protocol Last Admin: 12/28/18 09:39 Dose: 40 mg Glipizide (Glucotrol Xl) 10 mg PO ACB [facility] Last Admin: 12/27/18 09:32 Dose: 10 mg Hyoscyamine (Levsin) 0.125 mg PO DAILY [facility] Last Admin: 12/27/18 09:33 Dose: 0.125 mg Aztreonam 1 gm/ Sodium (Chloride) 100 mls @ 100 mls/hr IVPB Q12 [facility]; Protocol Last Admin: 12/28/18 09:36 Dose: 100 mls/hr Vancomycin HCl 500 mg/ Sodium (Chloride) 100 mls @ 100 mls/hr IVPB Q12@1100,2300 [facility]; Protocol Last Admin: 12/27/18 22:43 Dose: 100 mls/hr Insulin Detemir (Levemir) 8 units SC HS [facility] Last Admin: 12/27/18 21:48 Dose: 8 units Insulin Human Lispro (Humalog) 0 units SC ACHS [facility]; Protocol Last Admin: 12/28/18 06:46 Dose: Not Given Latanoprost (Xalatan Opht) 1 drop OU HS [facility] Last Admin: 12/27/18 21:48 Dose: 1 drop Memantine (Namenda) 10 mg PO Q12 [facility] Last Admin: 12/27/18 21:49 Dose: Not Given Metformin HCl (Glucophage) 1,000 mg PO DAILY [facility] Last Admin: 12/28/18 09:38 Dose: 1,000 mg Metolazone (Zaroxolyn) 2.5 mg PO MWF [facility] Last Admin: 12/26/18 09:13 Dose: Not Given Metoprolol Tartrate (Lopressor) 25 mg PO Q12 [facility] Last Admin: 12/28/18 09:38 Dose: 25 mg Mirtazapine (Remeron) 7.5 mg PO HS [facility] Last Admin: 12/27/18 21:49 Dose: Not Given Nystatin (Nystop Topical Powder) 1 applic TOP TID [facility] Last Admin: 12/28/18 09:54 Dose: 1 applic Promethazine HCl/Dextromethorphan (Phenergan Dm Syrup) 5 ml PO Q6 PRN PRN Reason: Cough Quetiapine Fumarate (Seroquel) 50 mg PO QID [facility] Last Admin: 12/27/18 21:49 Dose: Not Given Sitagliptin Phosphate (Januvia) 100 mg PO DAILY [facility] Last Admin: 12/28/18 09:38 Dose: 100 mg - Labs Labs: 12/24/18 05:00 12/27/18 14:07 PT 12.5 Seconds (9.8-13.1) 12/27/18 14:07 INR 1.1 12/27/18 14:07 - Constitutional Appears: Confused, Cachectic, Chronically Ill - Head Exam Head Exam: ATRAUMATIC, NORMAL INSPECTION, NORMOCEPHALIC - Eye Exam Eye Exam: EOMI, Normal appearance, PERRL Pupil Exam: NORMAL ACCOMODATION, PERRL - ENT Exam ENT Exam: Mucous Membranes Moist, Normal Exam - Neck Exam Neck Exam: Full ROM, Normal Inspection. absent: Lymphadenopathy - Respiratory Exam Respiratory Exam: Clear to Ausculation Bilateral, NORMAL BREATHING PATTERN - Cardiovascular Exam Cardiovascular Exam: REGULAR RHYTHM, +S1, +S2. absent: Murmur - GI/Abdominal Exam GI & Abdominal Exam: Soft, Normal Bowel Sounds. absent: Tenderness - Rectal Exam Rectal Exam: Deferred - Exam Exam: NORMAL INSPECTION - Extremities Exam Extremities Exam: Full ROM, Normal Capillary Refill, Normal Inspection. absent: Joint Swelling, Pedal Edema - Back Exam Back Exam: NORMAL INSPECTION - Neurological Exam Neurological Exam: Altered, CN II-XII Intact. absent: Alert, Awake, Normal Gait, Oriented x3 - Psychiatric Exam Psychiatric exam: Normal Affect, Normal Mood - Skin Skin Exam: Dry, Intact, Normal Color, Warm Assessment and Plan (1) Altered mental status Status: Acute (2) Sepsis Status: Acute (3) Diabetes mellitus Status: Chronic - Assessment and Plan (Free Text) Assessment: IV rx renewed
--- NOTE | 2018-12-28 15:21 | RAD ---
Date of service: 12/28/2018 HISTORY: PICC LINE INSERTION VERIFICATION COMPARISON: Portable chest 12/19/2018. TECHNIQUE: 1 view obtained. FINDINGS: LUNGS: No active pulmonary disease. PLEURA: No significant pleural effusion identified, no pneumothorax apparent. CARDIOVASCULAR: No aortic atherosclerotic calcification present. Normal cardiac size. No pulmonary vascular congestion. PICC identified inserted terminating at the cavoatrial junction by right upper extremity approach. OSSEOUS STRUCTURES: No significant abnormalities. VISUALIZED UPPER ABDOMEN: Normal. OTHER FINDINGS: None. IMPRESSION: No interval acute cardiopulmonary disease appreciated. Adequate right PICC insertion as discussed above.
--- NOTE | 2018-12-28 16:02 | CP.PCM.PN ---
Subjective - Date & Time of Evaluation Date of Evaluation: 12/28/18 Time of Evaluation: 11:00 - Subjective Subjective: F/U Facial Cellulitis. AMS L facial swelling greatly improving. Not eating or drinking. Objective - Vital Signs/Intake and Output Vital Signs (last 24 hours): Temp Pulse Resp BP Pulse Ox 98.6 F 78 20 141/84 99 12/28/18 12:00 12/28/18 12:00 12/28/18 12:00 12/28/18 12:00 12/28/18 12:00 Intake and Output: 12/28/18 12/28/18 06:59 18:59 Intake Total 1600 Balance 1600 - Medications Medications: Current Medications Albuterol/Ipratropium (Duoneb 3 Mg/0.5 Mg (3 Ml) Ud) 3 ml IH RQ8 PRN PRN Reason: Shortness of Breath Atorvastatin Calcium (Lipitor) 40 mg PO HS [facility] Last Admin: 12/27/18 21:50 Dose: Not Given Dimethicone (Proshield Plus Skin Protectant) 1 applic TOP Q8 [facility] Last Admin: 12/28/18 09:54 Dose: 1 applic Glipizide (Glucotrol Xl) 10 mg PO ACB [facility] Last Admin: 12/28/18 08:20 Dose: Not Given Hyoscyamine (Levsin) 0.125 mg PO DAILY [facility] Last Admin: 12/27/18 09:33 Dose: 0.125 mg Aztreonam 1 gm/ Sodium (Chloride) 100 mls @ 100 mls/hr IVPB Q12 [facility]; Protocol Last Admin: 12/28/18 09:36 Dose: 100 mls/hr Vancomycin HCl 500 mg/ Sodium (Chloride) 100 mls @ 100 mls/hr IVPB Q12@1100,2300 [facility]; Protocol Last Admin: 12/28/18 13:09 Dose: 100 mls/hr Insulin Detemir (Levemir) 8 units SC HS [facility] Last Admin: 12/27/18 21:48 Dose: 8 units Insulin Human Lispro (Humalog) 0 units SC ACHS [facility]; Protocol Last Admin: 12/28/18 12:18 Dose: Not Given Latanoprost (Xalatan Opht) 1 drop OU HS [facility] Last Admin: 12/27/18 21:48 Dose: 1 drop Metformin HCl (Glucophage) 1,000 mg PO DAILY [facility] Last Admin: 12/28/18 09:38 Dose: 1,000 mg Metolazone (Zaroxolyn) 2.5 mg PO MWF [facility] Last Admin: 12/26/18 09:13 Dose: Not Given Metoprolol Tartrate (Lopressor) 25 mg PO Q12 [facility] Last Admin: 12/28/18 09:38 Dose: 25 mg Mirtazapine (Remeron) 7.5 mg PO HS [facility] Last Admin: 12/27/18 21:49 Dose: Not Given Nystatin (Nystop Topical Powder) 1 applic TOP TID [facility] Last Admin: 12/28/18 13:19 Dose: 1 applic Promethazine HCl/Dextromethorphan (Phenergan Dm Syrup) 5 ml PO Q6 PRN PRN Reason: Cough Sitagliptin Phosphate (Januvia) 100 mg PO DAILY [facility] Last Admin: 12/28/18 09:38 Dose: 100 mg - Labs Labs: 12/24/18 05:00 12/27/18 14:07 PT 12.5 Seconds (9.8-13.1) 12/27/18 14:07 INR 1.1 12/27/18 14:07 - Constitutional Appears: Chronically Ill - Head Exam Additional comments: minimal L facial swelling. - Eye Exam Eye Exam: PERRL - ENT Exam ENT Exam: Normal Exam - Neck Exam Neck Exam: Normal Inspection - Respiratory Exam Respiratory Exam: Decreased Breath Sounds (at bases) - Cardiovascular Exam Cardiovascular Exam: REGULAR RHYTHM - GI/Abdominal Exam GI & Abdominal Exam: Soft, Normal Bowel Sounds - Extremities Exam Extremities Exam: Normal Inspection - Back Exam Back Exam: NORMAL INSPECTION - Neurological Exam Neurological Exam: Awake Additional comments: Eyes open, minimal response to tactile stimuli. - Skin Skin Exam: Warm Assessment and Plan (1) Facial cellulitis Status: Acute (2) Altered mental status Status: Acute (3) Dehydration Status: Acute (4) Dementia Status: Chronic (5) Hyperglycemia Status: Chronic (6) Diabetes mellitus Status: Chronic (7) Lack of appetite Status: Acute (8) Constipated Status: Acute - Assessment and Plan (Free Text) Plan: Fluid IV, monitor po intake, continue Aztreonam, vanco and rest of tx.
--- NOTE | 2018-12-28 16:04 | CP.PCM.PN ---
Objective - Vital Signs/Intake and Output Vital Signs (last 24 hours): Temp Pulse Resp BP Pulse Ox 98.6 F 78 20 141/84 99 12/28/18 12:00 12/28/18 12:00 12/28/18 12:00 12/28/18 12:00 12/28/18 12:00 Intake and Output: 12/28/18 12/28/18 06:59 18:59 Intake Total 1600 Balance 1600 - Medications Medications: Current Medications Albuterol/Ipratropium (Duoneb 3 Mg/0.5 Mg (3 Ml) Ud) 3 ml IH RQ8 PRN PRN Reason: Shortness of Breath Atorvastatin Calcium (Lipitor) 40 mg PO HS [facility] Last Admin: 12/27/18 21:50 Dose: Not Given Dimethicone (Proshield Plus Skin Protectant) 1 applic TOP Q8 [facility] Last Admin: 12/28/18 09:54 Dose: 1 applic Glipizide (Glucotrol Xl) 10 mg PO ACB [facility] Last Admin: 12/28/18 08:20 Dose: Not Given Hyoscyamine (Levsin) 0.125 mg PO DAILY [facility] Last Admin: 12/27/18 09:33 Dose: 0.125 mg Aztreonam 1 gm/ Sodium (Chloride) 100 mls @ 100 mls/hr IVPB Q12 [facility]; Protocol Last Admin: 12/28/18 09:36 Dose: 100 mls/hr Vancomycin HCl 500 mg/ Sodium (Chloride) 100 mls @ 100 mls/hr IVPB Q12@1100,2 300 [facility]; Protocol Last Admin: 12/28/18 13:09 Dose: 100 mls/hr Insulin Detemir (Levemir) 8 units SC [facility] Last Admin: 12/27/18 21:48 Dose: 8 units Insulin Human Lispro (Humalog) 0 units SC [facility]; Protocol Last Admin: 12/28/18 12:18 Dose: Not Given Latanoprost (Xalatan Opht) 1 drop OU [facility] Last Admin: 12/27/18 21:48 Dose: 1 drop Metformin HCl (Glucophage) 1,000 mg PO DAILY [facility] Last Admin: 12/28/18 09:38 Dose: 1,000 mg Metolazone (Zaroxolyn) 2.5 mg PO MWF [facility] Last Admin: 12/26/18 09:13 Dose: Not Given Metoprolol Tartrate (Lopressor) 25 mg PO Q12 [facility] Last Admin: 12/28/18 09:38 Dose: 25 mg Mirtazapine (Remeron) 7.5 mg PO HS [facility] Last Admin: 12/27/18 21:49 Dose: Not Given Nystatin (Nystop Topical Powder) 1 applic TOP TID [facility] Last Admin: 12/28/18 13:19 Dose: 1 applic Promethazine HCl/Dextromethorphan (Phenergan Dm Syrup) 5 ml PO Q6 PRN PRN Reason: Cough Sitagliptin Phosphate (Januvia) 100 mg PO DAILY [facility] Last Admin: 12/28/18 09:38 Dose: 100 mg - Labs Labs: 12/24/18 05:00 12/27/18 14:07 PT 12.5 Seconds (9.8-13.1) 12/27/18 14:07 INR 1.1 12/27/18 14:07 Assessment and Plan (1) Facial cellulitis Status: Acute (2) Altered mental status Status: Acute (3) Dehydration Status: Acute (4) Dementia Status: Chronic (5) Hyperglycemia Status: Chronic (6) Diabetes mellitus Status: Chronic (7) Lack of appetite Status: Acute (8) Constipated Status: Acute
[2018-12-28] MEDS: Lactobacillus Acidophilus 500 MU Cap PO SCH (17:37)
[2018-12-28] MEDS: Sodium Chloride 0.45% 1,000 ML IV SCH (17:38)
[2018-12-28] MEDS: Latanoprost 0.005% Opht SOUTION OU SCH (21:18)
[2018-12-28] MEDS: Insulin Detemir 100 Units/ml Inj SC SCH (21:56)
[2018-12-29] MEDS: Proshield Plus GEL TOP SCH ×3 (01:24→17:38)
[2018-12-29] MEDS: Insulin Lispro (humaLOG) 100 Units/ml Inj SC SCH ×4 (06:34→21:53)
[2018-12-29 06:41] LABS: HEMOGLOBIN 11.8 g/dL (12.0-16.0); MEAN CELL VOLUME 74.7 fl (81.0-99.0); MEAN CORPUSCULAR HEMOGLOBIN 23.9 pg (27.0-31.0); RBC 4.92 Mil/uL (3.80-5.20); RED CELL DISTRIBUTION WIDTH 14.5 % (11.5-14.5); WHITE BLOOD COUNT 7.8 K/uL (4.8-10.8)
[2018-12-29 06:51] LABS: BLOOD UREA NITROGEN 6 mg/dl (7-17); CALCIUM 9.2 mg/dL (8.4-10.2); GFR NON-AFRICAN AMERICAN > 60
[2018-12-29] MEDS: Aztreonam 1 GM in Sodium Chloride 0.9% 100 ML IVPB SCH ×2 (10:09→21:48)
[2018-12-29] MEDS: Hyoscyamine 0.125 mg SL Tab PO SCH (10:11)
[2018-12-29] MEDS: GlipiZIDE 10 mg SR Tab PO SCH (10:14)
[2018-12-29] MEDS: Sodium Chloride 0.45% 1,000 ML IV SCH (10:15)
[2018-12-29] MEDS: Lactobacillus Acidophilus 500 MU Cap PO SCH ×2 (10:17→17:38)
--- NOTE | 2018-12-29 11:51 | CT ---
Date of service: 12/29/2018 PROCEDURE: CT HEAD WITHOUT CONTRAST. HISTORY: Possible seizure COMPARISON: None available. TECHNIQUE: Axial computed tomography images were obtained through the head/brain without intravenous contrast. Radiation dose: Total exam DLP = 899.82 mGy-cm. This CT exam was performed using one or more of the following dose reduction techniques: Automated exposure control, adjustment of the mA and/or kV according to patient size, and/or use of iterative reconstruction technique. FINDINGS: HEMORRHAGE: No intracranial hemorrhage. BRAIN: No mass effect or edema. Atrophy and chronic periventricular white matter ischemic disease. VENTRICLES: Unremarkable. No hydrocephalus. CALVARIUM: Unremarkable. PARANASAL SINUSES: Unremarkable as visualized. No significant inflammatory changes. MASTOID AIR CELLS: Unremarkable as visualized. No inflammatory changes. OTHER FINDINGS: None. IMPRESSION: No acute hemorrhage.
--- NOTE | 2018-12-29 15:48 | CP.PCM.PN ---
Subjective - Date & Time of Evaluation Date of Evaluation: 12/29/18 Time of Evaluation: 13:40 - Subjective Subjective: F/U Facial swelling. AMS As per family, Pt had jerky movements in L shoulder and face. L facial swelling greatly improving with minimal swelling. Objective - Vital Signs/Intake and Output Vital Signs (last 24 hours): Temp Pulse Resp BP Pulse Ox 98.4 F 60 18 134/78 99 12/29/18 12:22 12/29/18 12:22 12/29/18 12:22 12/29/18 12:22 12/29/18 12:22 - Medications Medications: Current Medications Albuterol/Ipratropium (Duoneb 3 Mg/0.5 Mg (3 Ml) Ud) 3 ml IH RQ8 PRN PRN Reason: Shortness of Breath Atorvastatin Calcium (Lipitor) 40 mg PO HS COUNTS INCLUDE 234 BEDS AT THE [facility] Last Admin: 12/28/18 21:20 Dose: Not Given Dimethicone (Proshield Plus Skin Protectant) 1 applic TOP Q8 [facility] Last Admin: 12/29/18 10:14 Dose: 1 applic Glipizide (Glucotrol Xl) 10 mg PO ACB [facility] Last Admin: 12/29/18 10:14 Dose: Not Given Hyoscyamine (Levsin) 0.125 mg PO DAILY [facility] Last Admin: 12/29/18 10:11 Dose: 0.125 mg Aztreonam 1 gm/ Sodium (Chloride) 100 mls @ 100 mls/hr IVPB Q12 [facility]; Protocol Last Admin: 12/29/18 10:09 Dose: 100 mls/hr Vancomycin HCl 500 mg/ Sodium (Chloride) 100 mls @ 100 mls/hr IVPB Q12@1100,2300 [facility]; Protocol Last Admin: 12/29/18 10:09 Dose: 100 mls/hr Sodium Chloride (Sodium Chloride 0.45%) 1,000 mls @ 60 mls/hr IV .[id number] COUNTS INCLUDE 234 BEDS AT THE [facility] Stop: 12/29/18 16:14 Last Admin: 12/29/18 10:15 Dose: 60 mls/hr Insulin Detemir (Levemir) 8 units SC HS COUNTS INCLUDE 234 BEDS AT THE [facility] Last Admin: 12/28/18 21:56 Dose: 8 units Insulin Human Lispro (Humalog) 0 units SC [facility] COUNTS INCLUDE 234 BEDS AT THE [facility]; Protocol Last Admin: 12/29/18 13:02 Dose: Not Given Lactobacillus Acidophilus (Bacid Acidophilus) 1 cap PO BID COUNTS INCLUDE 234 BEDS AT THE [facility] Last Admin: 12/29/18 10:17 Dose: 1 cap Latanoprost (Xalatan Opht) 1 drop OU HS COUNTS INCLUDE 234 BEDS AT THE [facility] Last Admin: 12/28/18 21:18 Dose: 1 drop Metformin HCl (Glucophage) 1,000 mg PO DAILY COUNTS INCLUDE 234 BEDS AT THE [facility] Last Admin: 12/29/18 10:12 Dose: 1,000 mg Metoprolol Tartrate (Lopressor) 25 mg PO Q12 COUNTS INCLUDE 234 BEDS AT THE [facility] Last Admin: 12/29/18 10:11 Dose: 25 mg Nystatin (Nystop Topical Powder) 1 applic TOP TID COUNTS INCLUDE 234 BEDS AT THE [facility] Last Admin: 12/29/18 13:02 Dose: Not Given Promethazine HCl/Dextromethorphan (Phenergan Dm Syrup) 5 ml PO Q6 PRN PRN Reason: Cough Sitagliptin Phosphate (Januvia) 100 mg PO DAILY COUNTS INCLUDE 234 BEDS AT THE [facility] Last Admin: 12/29/18 10:13 Dose: Not Given - Labs Labs: 12/29/18 04:30 12/29/18 04:30 PT 12.5 Seconds (9.8-13.1) 12/27/18 14:07 INR 1.1 12/27/18 14:07 - Constitutional Appears: Chronically Ill - Head Exam Additional comments: Minimal L facial swelling. - Eye Exam Eye Exam: PERRL - ENT Exam ENT Exam: Normal Exam - Neck Exam Neck Exam: Normal Inspection - Respiratory Exam Respiratory Exam: Decreased Breath Sounds (at bases) - Cardiovascular Exam Cardiovascular Exam: REGULAR RHYTHM - GI/Abdominal Exam GI & Abdominal Exam: Soft, Normal Bowel Sounds - Extremities Exam Extremities Exam: Normal Inspection - Neurological Exam Neurological Exam: Awake Additional comments: Eyes open, minimal response to tactile stimuli - Skin Skin Exam: Warm Assessment and Plan (1) Facial cellulitis Status: Acute (2) Altered mental status Status: Acute (3) Dehydration Status: Acute (4) Dementia Status: Chronic (5) Hyperglycemia Status: Chronic (6) Diabetes mellitus Status: Chronic (7) Lack of appetite Status: Acute (8) Constipated Status: Acute (9) Metabolic encephalopathy Status: Acute - Assessment and Plan (Free Text) Plan: Neurology behavioral health consultant feels Pt with no seizure, shoulder /face movement 2nd to encephalopathy. Head CT, no acute changes. BS stable, IV D-%, NS, and Aztreonan, Vanco and rest of Tx.
[2018-12-29] MEDS: Potassium Chl 20 mEq in D5-NS 1,000 ML IV SCH (17:41)
[2018-12-29] MEDS: Insulin Detemir 100 Units/ml Inj SC SCH (21:50)
[2018-12-29] MEDS: Latanoprost 0.005% Opht SOUTION OU SCH (21:54)
[2018-12-30] MEDS: Proshield Plus GEL TOP SCH ×3 (01:26→18:12)
[2018-12-30] MEDS: Aztreonam 1 GM in Sodium Chloride 0.9% 100 ML IVPB SCH ×2 (09:18→21:01)
[2018-12-30] MEDS: GlipiZIDE 10 mg SR Tab PO SCH (09:18)
[2018-12-30] MEDS: Lactobacillus Acidophilus 500 MU Cap PO SCH ×2 (09:22→18:13)
[2018-12-30] MEDS: Insulin Lispro (humaLOG) 100 Units/ml Inj SC SCH ×4 (10:57→22:48)
[2018-12-30] MEDS: Hyoscyamine 0.125 mg SL Tab PO SCH (11:00)
--- NOTE | 2018-12-30 12:22 | CP.PCM.PN ---
Subjective - Date & Time of Evaluation Date of Evaluation: 12/30/18 Time of Evaluation: 08:00 - Subjective Subjective: afebrile awake alert nad Objective - Vital Signs/Intake and Output Vital Signs (last 24 hours): Temp Pulse Resp BP Pulse Ox 98.4 F 78 20 151/76 H 99 12/30/18 08:06 12/30/18 09:19 12/30/18 08:06 12/30/18 09:19 12/30/18 08:06 Intake and Output: 12/30/18 12/30/18 06:59 18:59 Intake Total 950 Balance 950 - Medications Medications: Current Medications Albuterol/Ipratropium (Duoneb 3 Mg/0.5 Mg (3 Ml) Ud) 3 ml IH RQ8 PRN PRN Reason: Shortness of Breath Atorvastatin Calcium (Lipitor) 40 mg PO HS [facility] Last Admin: 12/29/18 21:54 Dose: Not Given Dimethicone (Proshield Plus Skin Protectant) 1 applic TOP Q8 [facility] Last Admin: 12/30/18 09:19 Dose: 1 applic Glipizide (Glucotrol Xl) 10 mg PO ACB [facility] Last Admin: 12/30/18 09:18 Dose: 10 mg Hyoscyamine (Levsin) 0.125 mg PO DAILY [facility] Last Admin: 12/29/18 10:11 Dose: 0.125 mg Aztreonam 1 gm/ Sodium (Chloride) 100 mls @ 100 mls/hr IVPB Q12 [facility]; Protocol Last Admin: 12/30/18 09:18 Dose: 100 mls/hr Vancomycin HCl 500 mg/ Sodium (Chloride) 100 mls @ 100 mls/hr IVPB Q12@1100,2300 [facility]; Protocol Last Admin: 12/30/18 11:30 Dose: 100 mls/hr Potassium Chloride/Dextrose/Sod Cl (Potassium Chl 20 Meq In D5-Ns) 1,000 mls @ 60 mls/hr IV .[id number] [facility] Stop: 12/30/18 17:06 Last Admin: 12/29/18 17:41 Dose: 60 mls/hr Insulin Detemir (Levemir) 8 units SC [facility] Last Admin: 12/29/18 21:50 Dose: 8 units Insulin Human Lispro (Humalog) 0 units SC [facility]; Protocol Last Admin: 12/30/18 11:29 Dose: 3 units Lactobacillus Acidophilus (Bacid Acidophilus) 1 cap PO BID [facility] Last Admin: 12/30/18 09:22 Dose: 1 cap Latanoprost (Xalatan Opht) 1 drop OU HS [facility] Last Admin: 12/29/18 21:54 Dose: 1 drop Metformin HCl (Glucophage) 1,000 mg PO DAILY [facility] Last Admin: 12/30/18 09:23 Dose: 1,000 mg Metoprolol Tartrate (Lopressor) 25 mg PO Q12 [facility] Last Admin: 12/30/18 09:19 Dose: 25 mg Nystatin (Nystop Topical Powder) 1 applic TOP TID [facility] Last Admin: 12/30/18 09:19 Dose: 1 applic Promethazine HCl/Dextromethorphan (Phenergan Dm Syrup) 5 ml PO Q6 PRN PRN Reason: Cough Sitagliptin Phosphate (Januvia) 100 mg PO DAILY [facility] Last Admin: 12/30/18 09:18 Dose: 100 mg - Labs Labs: 12/29/18 04:30 12/29/18 04:30 PT 12.5 Seconds (9.8-13.1) 12/27/18 14:07 INR 1.1 12/27/18 14:07 - Constitutional Appears: Non-toxic, Cachectic, Chronically Ill - Head Exam Head Exam: ATRAUMATIC, NORMAL INSPECTION, NORMOCEPHALIC - Eye Exam Eye Exam: EOMI, Normal appearance, PERRL Pupil Exam: NORMAL ACCOMODATION, PERRL - ENT Exam ENT Exam: Mucous Membranes Moist, Normal Exam - Neck Exam Neck Exam: Full ROM, Normal Inspection. absent: Lymphadenopathy - Respiratory Exam Respiratory Exam: Clear to Ausculation Bilateral, NORMAL BREATHING PATTERN - Cardiovascular Exam Cardiovascular Exam: REGULAR RHYTHM, +S1, +S2. absent: Murmur - GI/Abdominal Exam GI & Abdominal Exam: Soft, Normal Bowel Sounds. absent: Tenderness - Rectal Exam Rectal Exam: Deferred - Exam Exam: NORMAL INSPECTION - Extremities Exam Extremities Exam: Full ROM, Normal Capillary Refill, Normal Inspection. absent: Joint Swelling, Pedal Edema - Back Exam Back Exam: NORMAL INSPECTION - Neurological Exam Neurological Exam: Alert, Awake, CN II-XII Intact, Normal Gait, Oriented x3 - Psychiatric Exam Psychiatric exam: Depressed - Skin Skin Exam: Dry, Intact, Warm Assessment and Plan (1) Altered mental status Status: Acute (2) Sepsis Status: Acute (3) Diabetes mellitus Status: Chronic - Assessment and Plan (Free Text) Assessment: cont iv rx/ supportive care
[2018-12-30] MEDS: Enoxaparin 40 mg Syringe SC SCH (13:54)
[2018-12-30] MEDS: Potassium Chl 20 mEq in D5-NS 1,000 ML IV SCH (13:55)
--- NOTE | 2018-12-30 17:01 | CP.PCM.PN ---
Subjective - Date & Time of Evaluation Date of Evaluation: 12/30/18 Time of Evaluation: 14:20 - Subjective Subjective: Pt smiling, decreased swelling L face, minimal response to tactile stimuli, eating and drinking in small amounts. Objective - Vital Signs/Intake and Output Vital Signs (last 24 hours): Temp Pulse Resp BP Pulse Ox 97.7 F 79 16 102/68 98 12/30/18 16:50 12/30/18 16:50 12/30/18 16:50 12/30/18 16:50 12/30/18 16:50 Intake and Output: 12/30/18 12/30/18 06:59 18:59 Intake Total 950 Balance 950 - Medications Medications: Current Medications Albuterol/Ipratropium (Duoneb 3 Mg/0.5 Mg (3 Ml) Ud) 3 ml IH RQ8 PRN PRN Reason: Shortness of Breath Atorvastatin Calcium (Lipitor) 40 mg PO HS [facility] Last Admin: 12/29/18 21:54 Dose: Not Given Dimethicone (Proshield Plus Skin Protectant) 1 applic TOP Q8 [facility] Last Admin: 12/30/18 09:19 Dose: 1 applic Enoxaparin Sodium (Lovenox) 40 mg SC DAILY [facility]; Protocol Last Admin: 12/30/18 13:54 Dose: 40 mg Glipizide (Glucotrol Xl) 10 mg PO ACB [facility] Last Admin: 12/30/18 09:18 Dose: 10 mg Hyoscyamine (Levsin) 0.125 mg PO DAILY [facility] Last Admin: 12/29/18 10:11 Dose: 0.125 mg Aztreonam 1 gm/ Sodium (Chloride) 100 mls @ 100 mls/hr IVPB Q12 [facility]; Protocol Last Admin: 12/30/18 09:18 Dose: 100 mls/hr Vancomycin HCl 500 mg/ Sodium (Chloride) 100 mls @ 100 mls/hr IVPB Q12@1100,2300 [facility]; Protocol Last Admin: 12/30/18 11:30 Dose: 100 mls/hr Potassium Chloride/Dextrose/Sod Cl (Potassium Chl 20 Meq In D5-Ns) 1,000 mls @ 60 mls/hr IV .[id number] [facility] Stop: 12/30/18 17:06 Last Admin: 12/30/18 13:55 Dose: 60 mls/hr Insulin Detemir (Levemir) 8 units SC [facility] Last Admin: 12/29/18 21:50 Dose: 8 units Insulin Human Lispro (Humalog) [address] [facility]; Protocol Last Admin: 12/30/18 11:29 Dose: 3 units Lactobacillus Acidophilus (Bacid Acidophilus) 1 cap PO BID [facility] Last Admin: 12/30/18 09:22 Dose: 1 cap Latanoprost (Xalatan Opht) 1 drop OU HS [facility] Last Admin: 12/29/18 21:54 Dose: 1 drop Metformin HCl (Glucophage) 1,000 mg PO DAILY [facility] Last Admin: 12/30/18 09:23 Dose: 1,000 mg Metoprolol Tartrate (Lopressor) 25 mg PO Q12 [facility] Last Admin: 12/30/18 09:19 Dose: 25 mg Nystatin (Nystop Topical Powder) 1 applic TOP TID [facility] Last Admin: 12/30/18 13:56 Dose: 1 applic Promethazine HCl/Dextromethorphan (Phenergan Dm Syrup) 5 ml PO Q6 PRN PRN Reason: Cough Sitagliptin Phosphate (Januvia) 100 mg PO DAILY [facility] Last Admin: 12/30/18 09:18 Dose: 100 mg - Labs Labs: 12/29/18 04:30 12/29/18 04:30 PT 12.5 Seconds (9.8-13.1) 12/27/18 14:07 INR 1.1 12/27/18 14:07 Assessment and Plan (1) Facial cellulitis Status: Acute (2) Altered mental status Status: Acute (3) Dehydration Status: Acute (4) Dementia Status: Chronic (5) Hyperglycemia Status: Chronic (6) Diabetes mellitus Status: Chronic (7) Lack of appetite Status: Acute (8) Constipated Status: Acute - Assessment and Plan (Free Text) Plan: Aztreonam, Vanco and rest of Tx.
[2018-12-30] MEDS: Latanoprost 0.005% Opht SOUTION OU SCH (21:02)
[2018-12-30] MEDS: Insulin Detemir 100 Units/ml Inj SC SCH (22:49)
[2018-12-31] MEDS: Proshield Plus GEL TOP SCH ×2 (00:47→08:42)
[2018-12-31 00:48] VITALS: RESP 20
[2018-12-31 05:21] VITALS: O2SAT 100
[2018-12-31] MEDS: Lactobacillus Acidophilus 500 MU Cap PO SCH (08:40)
[2018-12-31] MEDS: Aztreonam 1 GM in Sodium Chloride 0.9% 100 ML IVPB SCH (08:40)
[2018-12-31] MEDS: Enoxaparin 40 mg Syringe SC SCH (08:42)
[2018-12-31] MEDS: Hyoscyamine 0.125 mg SL Tab PO SCH (08:44)
[2018-12-31] MEDS: Insulin Lispro (humaLOG) 100 Units/ml Inj SC SCH ×2 (08:44→12:06)
[2018-12-31] MEDS: GlipiZIDE 10 mg SR Tab PO SCH (08:45)
--- NOTE | 2018-12-31 11:26 | CP.PCM.PN ---
Subjective - Date & Time of Evaluation Date of Evaluation: 12/31/18 Time of Evaluation: 09:00 - Subjective Subjective: no complaints iv rx in progress Objective - Vital Signs/Intake and Output Vital Signs (last 24 hours): Temp Pulse Resp BP Pulse Ox 97.9 F 80 20 159/89 H 100 12/31/18 08:01 12/31/18 09:00 12/31/18 08:01 12/31/18 08:43 12/31/18 08:01 - Medications Medications: Current Medications Albuterol/Ipratropium (Duoneb 3 Mg/0.5 Mg (3 Ml) Ud) 3 ml IH RQ8 PRN PRN Reason: Shortness of Breath Atorvastatin Calcium (Lipitor) 40 mg PO HS [facility] Last Admin: 12/30/18 21:02 Dose: 40 mg Dimethicone (Proshield Plus Skin Protectant) 1 applic TOP Q8 [facility] Last Admin: 12/31/18 08:42 Dose: 1 applic Enoxaparin Sodium (Lovenox) 40 mg SC DAILY [facility]; Protocol Last Admin: 12/31/18 08:42 Dose: 40 mg Glipizide (Glucotrol Xl) 10 mg PO ACB [facility] Last Admin: 12/31/18 08:45 Dose: Not Given Hyoscyamine (Levsin) 0.125 mg PO DAILY [facility] Last Admin: 12/31/18 08:44 Dose: 0.125 mg Aztreonam 1 gm/ Sodium (Chloride) 100 mls @ 100 mls/hr IVPB Q12 [facility]; Protocol Last Admin: 12/31/18 08:40 Dose: 100 mls/hr Vancomycin HCl 500 mg/ Sodium (Chloride) 100 mls @ 100 mls/hr IVPB Q12@1100,2300 [facility]; Protocol Last Admin: 12/30/18 23:30 Dose: 100 mls/hr Insulin Detemir (Levemir) 8 units SC HS [facility] Last Admin: 12/30/18 22:49 Dose: 8 units Insulin Human Lispro (Humalog) 0 units SC [facility]; Protocol Last Admin: 12/31/18 08:44 Dose: Not Given Lactobacillus Acidophilus (Bacid Acidophilus) 1 cap PO BID [facility] Last Admin: 12/31/18 08:40 Dose: 1 cap Latanoprost (Xalatan Opht) 1 drop OU HS [facility] Last Admin: 12/30/18 21:02 Dose: 1 drop Metformin HCl (Glucophage) 1,000 mg PO DAILY [facility] Last Admin: 12/31/18 08:44 Dose: 1,000 mg Metoprolol Tartrate (Lopressor) 25 mg PO Q12 [facility] Last Admin: 12/31/18 08:43 Dose: 25 mg Nystatin (Nystop Topical Powder) 1 applic TOP TID [facility] Last Admin: 12/31/18 08:43 Dose: 1 applic Promethazine HCl/Dextromethorphan (Phenergan Dm Syrup) 5 ml PO Q6 PRN PRN Reason: Cough Sitagliptin Phosphate (Januvia) 100 mg PO DAILY [facility] Last Admin: 12/31/18 08:45 Dose: Not Given - Labs Labs: 12/29/18 04:30 12/29/18 04:30 PT 12.5 Seconds (9.8-13.1) 12/27/18 14:07 INR 1.1 12/27/18 14:07 Assessment and Plan (1) Altered mental status Status: Acute (2) Sepsis Status: Acute (3) Diabetes mellitus Status: Chronic
[2018-12-31 11:55] VITALS: BP 139/82; PULSE 72; TEMP 98
--- NOTE | 2018-12-31 16:32 | CP.PCM.DIS ---
Provider - Provider Date of Admission: 12/19/18 17:06 Attending physician: Marino Sosa MD Consults: 12/19/18 17:05 Physician Consult Stat Comment: Consulting Provider: Isatu Giles Consulting Physician: Isatu Giles Reason for Consult: sepsis suspected pneumonis 12/20/18 00:45 Neurology Consult Routine Comment: Consulting Provider: Skinny Cho Consulting Physician: Skinny Cho Reason for Consult: Hx seizure, seizure medication 12/20/18 01:10 Wound Care [Nursing Referral for Wound Care] Routine Comment: Physician Instructions: Reason For Exam: STAGE 2 SACRAL ULCER 12/26/18 15:25 Infectious Disease Consult Routine Comment: Consulting Provider: Avinash Shetty Consulting Physician: Avinash Shetty Reason for Consult: early cellulitis Time Spent in preparation of Discharge (in minutes): 35 Diagnosis - Discharge Diagnosis (1) Facial cellulitis Status: Acute (2) Altered mental status Status: Acute Priority: High (3) Dehydration Status: Acute Priority: High (4) Dementia Status: Chronic Priority: High (5) Hyperglycemia Status: Chronic Priority: High (6) Diabetes mellitus Status: Chronic Priority: High (7) Lack of appetite Status: Acute Priority: High (8) Constipated Status: Acute Priority: High Hospital Course - Lab Results Lab Results: Micro Results 12/19/18 15:40 Blood-Venous Blood Culture - Final NO GROWTH AFTER 5 DAYS 12/19/18 15:40 Blood-Venous Gram Stain - Final TEST NOT PERFORMED 12/20/18 01:20 Urine,Clean Catch Urine Culture - Final No Growth (<1,000 CFU/ML) Most Recent Lab Values WBC 7.8 K/uL (4.8-10.8) 12/29/18 04:30 RBC 4.92 Mil/uL (3.80-5.20) 12/29/18 04:30 Hgb 11.8 g/dL (12.0-16.0) L 12/29/18 04:30 Hct 36.8 % (34.0-47.0) 12/29/18 04:30 MCV 74.7 fl (81.0-99.0) L 12/29/18 04:30 MCH 23.9 pg (27.0-31.0) L 12/29/18 04:30 MCHC 32.0 g/dL (33.0-37.0) L 12/29/18 04:30 RDW 14.5 % (11.5-14.5) 12/29/18 04:30 Plt Count 234 K/uL (130-400) 12/29/18 04:30 MPV 8.4 fl (7.2-11.7) 12/24/18 05:00 Neut % (Auto) 36.8 % (50.0-75.0) L 12/24/18 05:00 Lymph % (Auto) 51.6 % (20.0-40.0) H 12/24/18 05:00 Burt % (Auto) 8.9 % (0.0-10.0) 12/24/18 05:00 Eos % (Auto) 2.4 % (0.0-4.0) 12/24/18 05:00 Baso % (Auto) 0.3 % (0.0-2.0) 12/24/18 05:00 Neut # (Auto) 2.9 K/uL (1.8-7.0) 12/24/18 05:00 Lymph # (Auto) 4.0 K/uL (1.0-4.3) 12/24/18 05:00 Burt # (Auto) 0.7 K/uL (0.0-0.8) 12/24/18 05:00 Eos # (Auto) 0.2 K/uL (0.0-0.7) 12/24/18 05:00 Baso # (Auto) 0.0 K/uL (0.0-0.2) 12/24/18 05:00 PT 12.5 Seconds (9.8-13.1) 12/27/18 14:07 INR 1.1 12/27/18 14:07 pCO2 42 mm/Hg (35-45) 12/19/18 23:43 pO2 93 mm/Hg (80-100) 12/19/18 23:43 HCO3 25.1 mmol/L (21-28) 12/19/18 23:43 ABG pH 7.39 (7.35-7.45) 12/19/18 23:43 ABG Total CO2 26.7 mmol/L (22-28) 12/19/18 23:43 ABG O2 Saturation 98.9 % (95-98) H 12/19/18 23:43 ABG O2 Content 17.5 ML/dL (15-23) 12/19/18 23:43 ABG Base Excess 0.3 mmol/L (-2.0-3.0) 12/19/18 23:43 ABG Hemoglobin 12.9 g/dL (11.7-17.4) 12/19/18 23:43 ABG Carboxyhemoglobin 1.9 % (0.5-1.5) H 12/19/18 23:43 POC ABG HHb (Measured) 1.1 % (0.0-5.0) 12/19/18 23:43 ABG Methemoglobin 1.2 % (0.0-3.0) 12/19/18 23:43 ABG O2 Capacity 17.7 mL/dL (16-24) 12/19/18 23:43 Paco Test Yes 12/19/18:43 VBG pH 7.29 (7.32-7.43) L 12/19/18 20:20 VBG pCO2 69 mmHg (40-60) H* 12/19/18 20:20 VBG HCO3 26.0 mmol/L 12/19/18 20:20 VBG Total CO2 35.3 mmol/L (22-28) H 12/19/18 20:20 VBG O2 Sat (Calc) 12.6 % (40-65) L 12/19/18 20:20 VBG Base Excess 4.4 mmol/L (0.0-2.0) H 12/19/18 20:20 VBG Potassium 4.0 mmol/L (3.6-5.2) 12/19/18 20:20 A-a O2 Difference 4.0 mm/Hg 12/19/18 23:43 Hgb O2 Saturation 95.8 % (95.0-98.0) 12/19/18 23:43 Sodium 153.0 mmol/L (132-148) H 12/19/18 20:20 Chloride 114.0 mmol/L (98-107) H 12/19/18 20:20 Glucose 89 mg/dL (65-105) 12/19/18 20:20 Lactate 2.6 mmol/L (0.7-2.1) H 12/19/18 20:20 FiO2 21.0 % 12/19/18 23:43 Crit Value Called To Md darryl sanchze 12/19/18 20:20 Crit Value Called By 12/19/18 20:20 Crit Value Read Back Y 12/19/18 20:20 Blood Gas Notified Time 203412/19/18 20:20 Sodium 139 mmol/l (132-148) 12/29/18 04:30 Potassium 3.8 MMOL/L (3.6-5.0) 12/29/18 04:30 Chloride 104 mmol/L (98-107) 12/29/18 04:30 Carbon Dioxide 29 mmol/L (22-30) 12/29/18 04:30 Anion Gap 10 (10-20) 12/29/18 04:30 BUN 6 mg/dl (7-17) L 12/29/18 04:30 Creatinine 0.5 mg/dl (0.7-1.2) L 12/29/18 04:30 Est GFR ( Amer) > 60 12/29/18 04:30 Est GFR (Non-Af Amer) > 60 12/29/18 04:30 POC Glucose (mg/dL) 126 mg/dL (65-110) H 12/31/18 10:54 Random Glucose 83 mg/dL (65-105) 12/29/18 04:30 Hemoglobin A1c 10.1 % (4.2-6.5) H 12/24/18 05:00 Calcium 9.2 mg/dL (8.4-10.2) 12/29/18 04:30 Magnesium 1.8 MG/DL (1.6-2.3) 12/29/18 12:20 Total Bilirubin 0.3 mg/dl (0.2-1.3) 12/24/18 05:00 AST 34 U/L (14-36) 12/24/18 05:00 ALT 26 U/L (9-52) 12/24/18 05:00 Alkaline Phosphatase 53 U/L (38-126) 12/24/18 05:00 Total Protein 6.4 G/DL (6.3-8.2) 12/24/18 05:00 Albumin 3.4 g/dL (3.5-5.0) L 12/24/18 05:00 Globulin 3.0 gm/dL (2.2-3.9) 12/24/18 05:00 Albumin/Globulin Ratio 1.1 (1.0-2.1) 12/24/18 05:00 Triglycerides 142 mg/DL (0-149) 12/24/18 05:00 Cholesterol 177 mg/dL (0-199) 12/24/18 05:00 LDL Cholesterol Direct 111 mg/dL (0-129) 12/24/18 05:00 HDL Cholesterol 36 MG/DL (30-70) 12/24/18 05:00 Procalcitonin < 0.05 NG/ML (0.19-0.49) L 12/19/18 17:58 Thyroxine (T4) 7.71 ug/dl (5.5-11.0) 12/24/18 05:00 TSH 3rd Generation 2.07 mIU/ML (0.46-4.68) 12/24/18 05:00 Venous Blood Potassium 4.0 mmol/L (3.6-5.2) 12/19/18 20:20 Urine Color Yellow (YELLOW) 12/20/18 01:20 Urine Clarity Slighty-cloudy (Clear) 12/20/18 01:20 Urine pH 5.0 (5.0-8.0) 12/20/18 01:20 Ur Specific Erwin 1.043 (1.003-1.030) H 12/20/18 01:20 Urine Protein 30 mg/dL (NEGATIVE) 12/20/18 01:20 Urine Glucose (UA) >=500 mg/dL (NEGATIVE) 12/20/18 01:20 Urine Ketones 20 mg/dL (NEGATIVE) 12/20/18 01:20 Urine Blood Negative (NEGATIVE) 12/20/18 01:20 Urine Nitrate Negative (NEGATIVE) 12/20/18 01:20 Urine Bilirubin Negative (NEGATIVE) 12/20/18 01:20 Urine Urobilinogen 0.2-1.0 mg/dL (0.2-1.0) 12/20/18 01:20 Ur Leukocyte Esterase Neg Nayla/uL (Negative) 12/20/18 01:20 Urine RBC (Auto) 2 /hpf (0-3) 12/20/18 01:20 Urine Microscopic WBC 1 /hpf (0-5) 12/20/18 01:20 Ur Squamous Epith Cells 1 /hpf (0-5) 12/20/18 01:20 Valproic Acid < 10.0 ug/mL (50.0-100.0) L 12/20/18 13:58 - Date & Time of H&P Date of H&P: 12/20/18 Time of H&P: 13:40 Discharge Exam - Head Exam Additional comments: Minimal L facial swelling - Eye Exam Eye Exam: PERRL - ENT Exam ENT Exam: Normal Exam - Neck Exam Neck exam: Normal Inspection - Respiratory Exam Respiratory Exam: Decreased Breath Sounds (at bases) - Cardiovascular Exam Cardiovascular Exam: REGULAR RHYTHM - GI/Abdominal Exam GI & Abdominal Exam: Normal Bowel Sounds, Soft - Extremities Exam Extremities exam: normal inspection - Neurological Exam Additional comments: Awake, eyes open, minimal response to tactile stimuli - Skin Skin Exam: Warm Discharge Plan - Discharge Medications Prescriptions: Aztreonam 1 Gm in NS 100mL [Azactam 1 gm] 1 gm IV Q12 #14 ml Vancomycin 1 GM [Vancomycin 1GM in Normal Saline Addvantage] 1 gm IVPB Q12 #14 bag - Follow Up Plan Condition: FAIR Disposition: DISCHARGED TO HOME CARE Instructions: Sepsis, Adult (DC), Cellulitis (Skin Infection), Adult (DC) Additional Instructions: follow up with in 1 week keep picc line dry and clean. [facility] visiting nurse [phone] kava infusion Referrals: Avinash Shetty MD [Staff Provider] - Marino Sosa MD [Staff Provider] -
== END 2018-12-31 16:00 | disposition home health service (06) | DRG 871 ==
LOC: H.ER 15:02 → H.ERHOLD 17:06 → H.TEL 20:45
PROVIDERS: ADMIT Internal Medicine Pulmonary Disease; ATTEND Internal Medicine Pulmonary Disease
PROC: 3E0234Z Introduction of Serum, Toxoid and Vaccine into Muscle, Percutaneous Approach (ICD-10-PCS; principal; 2018-12-20)
PROC: 05HY33Z Insertion of Infusion Device into Upper Vein, Percutaneous Approach (ICD-10-PCS; 2018-12-28)
DX: A41.9 Sepsis, unspecified organism (principal); J18.9 Pneumonia, unspecified organism; G93.41 Metabolic encephalopathy; L03.211 Cellulitis of face; E86.0 Dehydration; G30.9 Alzheimer's disease, unspecified; F02.80 Dementia in other diseases classified elsewhere, unspecified severity, without behavioral disturbance, psychotic disturbance, mood disturbance, and anxiety; E11.65 Type 2 diabetes mellitus with hyperglycemia; K59.09 Other constipation; L89.152 Pressure ulcer of sacral region, stage 2; I10 Essential (primary) hypertension; E78.00 Pure hypercholesterolemia, unspecified; F20.9 Schizophrenia, unspecified; M19.90 Unspecified osteoarthritis, unspecified site; F50.89 Other specified eating disorder; Z23 Encounter for immunization; Z68.24 Body mass index [BMI] 24.0-24.9, adult; Z87.01 Personal history of pneumonia (recurrent); Z79.4 Long term (current) use of insulin; Z79.84 Long term (current) use of oral hypoglycemic drugs; Z88.0 Allergy status to penicillin